=== PATIENT | female | born 1955 | race Hispanic/Latino ===

== ENCOUNTER 2017-03-19 06:26 | Inpatient (IN) | payer SELFPAY ==
[2017-03-19 06:46] VITALS: BMI 39.9
[2017-03-19] MEDS ORDERED: Amiodarone 150mg/3 ml vial ONE (06:55)
[2017-03-19] MEDS ORDERED: Benzoin Compound Tincture (60 ml) ONE ×2 (06:59→07:29)
[2017-03-19 07:00] LABS: BASO # 0.1 K/uL (0.0-0.2); BASO % 0.4 % (0.0-2.0); EOS # 0.2 K/uL (0.0-0.7); EOS % 1.4 % (0.0-4.0); LYMPH # 4.4 K/uL (1.0-4.3); LYMPH % 27.5 % (20.0-40.0); MEAN CELL VOLUME 94.7 fL (81.0-99.0); MEAN CORPUSCULAR HEMOGLOBIN 30.5 pg (27.0-31.0); MEAN CORPUSCULAR HGB CONC 32.2 g/dL (33.0-37.0); MEAN PLATELET VOLUME 9.8 fL (7.2-11.7); MONO # 0.8 K/uL (0.0-0.8); MONO % 4.8 % (0.0-10.0); NRBC % 0.1 % (0.0-2.0); RED CELL DISTRIBUTION WIDTH 13.9 % (11.5-14.5); WHITE BLOOD COUNT 16.1 K/uL (4.8-10.8)
[2017-03-19] MEDS ORDERED: Albuterol-Ipratrop 3 mg / 0.5 (3 ml) UD IH SCH (07:00)
[2017-03-19] MEDS ORDERED: Etomidate 20 mg/10ml Inj IV ONE (07:05)
[2017-03-19] MEDS ORDERED: Succinylcholine Chloride 20 mg/ml Syr (5 ml) IV STA (07:05)
[2017-03-19 07:08] LABS: INR 1.1
[2017-03-19 07:15] LABS: CHLORIDE 105 mmol/L (98-107)
[2017-03-19 07:16] LABS: POTASSIUM 4.3 mmol/L (3.6-5.2); SODIUM 138 mmol/L (132-148)
[2017-03-19 07:18] LABS: ALB/GLOB RATIO 1.1 (1.0-2.1); AST/SGOT 49 U/L (14-36); BILIRUBIN,TOTAL 1.1 mg/dL (0.2-1.3); CARBON DIOXIDE 19 mmol/L (22-30); GFR AFRICAN-AMERICAN > 60; TOTAL PROTEIN 7.3 g/dL (6.3-8.3)
[2017-03-19 07:19] LABS: ALKALINE PHOSPHATASE 71 U/L (38-126); ALT/SGPT 58 U/L (9-52); BLOOD UREA NITROGEN 19 mg/dL (7-17); CALCIUM 9.2 mg/dl (8.6-10.4); GLUCOSE,RANDOM 167 mg/dL (65-105)
[2017-03-19] MEDS ORDERED: Propofol 10 mg/ml 1,000 MG/100 ML VIAL ONE (07:22)
[2017-03-19] MEDS ORDERED: Cefepime IV 1 gm in Dextrose 1 GM/50 ML BAG IVPB STA (07:32)
[2017-03-19 07:55] LABS: THYROID STIMULATING HORMONE 2.68 mIU/L (0.46-4.68)
--- NOTE | 2017-03-19 08:15 | C.PDOC ---
History Of Present Illness 61 y/o F c PMHx HTN BIBEMS in acute respiratory distress. Daughter states patient was well when daughter left for work this morning. States patient does not have PMD at this time. Patient noted that she has not been taking her HTN medication. Full history and ROS unobtainable due to acuity of condition. Patient noted to be hypertensive, tachypneic on arrival. Time Seen by Provider: 03/19/17 06:45 Chief Complaint (Nursing): Shortness Of Breath Past Medical History Vital Signs: Last Vital Signs Temp 99.1 F 03/19/17 08:28 Pulse 114 H 03/19/17 08:59 Resp 22 03/19/17 08:59 BP 99/70 L 03/19/17 08:59 Pulse Ox 99 03/19/17 08:59 - Medical History PMH: HTN Family History: States: No Known Family Hx - Social History Hx Tobacco Use: No Hx Alcohol Use: No Hx Substance Use: No Review Of Systems Review Of Systems: ROS cannot be obtained secondary to pt's inabilty to answer questions. Physical Exam - Physical Exam Additional Physical Exam Comments: Constitutional: Acute respiratory distress. Head: Normocephalic. Atraumatic. Eyes: PERRL. ENT: Moist mucous membranes. Neck: Supple. Cardiovascular: Tachycardic. Radial pulses 2+ bilaterally. Chest: No tenderness. Respiratory: Diffuse rhonchi. Tachypneic. Speaking in 2 word sentences. GI: Soft. Nontender. Nondistended. Back: No CVA tenderness. Musculoskeletal: No tenderness of extremities. Skin: No rash. Neurologic: Awake and alert. ED Course And Treatment - Laboratory Results Result Diagrams: 03/19/17 06:57 03/19/17 06:57 O2 Sat by Pulse Oximetry: 80 Critical Care Time - Critical Care Note Total Time (in mins): 60 Comments: Patient required my immediate attention upon arrival due to life threatening condition, requiring life saving procedures, constant re-evaluation, and discussion with multiple physicians. Documented critical care: time excludes all time spent performing seperately billable procedures. Medical Decision Making Medical Decision Making: Patient was on BiPap on my arrival to ER (7am shift start) and was in acute respiratory distress with HR 150s+, tachypneic, significant secretions, requiring intubation for impending respiratory failure. She was sedated with Propofol afterwards and central line placed, antibiotics initiated. CXR shows pulmonary edema and R sided opacificiation, can not exclude underlying pneumonia. Accepted by Dr. Chase to ICU. Dr. Osuna accepts to hospitalist service. PROCEDURE: CENTRAL LINE PLACEMENT Performed by the emergency provider, Time: 730am Consent: Was precluded by the urgency of the procedure and the patient condition. Timeout: A timeout to verify the correct patient, procedure, and site was performed. Indication: Access, critical condition, possible requirement of pressors, hemodynamic monitoring. Anesthesia: Local anesthesia: 1% lidocaine. Skin Preparation: Hand hygiene performed prior to central venous catheter insertion. Sterile field, sterile drape, sterile technique, and cap and gown were used. The area was cleansed with 2% Chlorhexidine. Patient position: Supine Location: R femoral Ultrasound guidance: YES Technique: The landmarks for the line placement were identified. The vessel was cannulated and a non-tunneled 7.0 Fr triple lumen was placed using the Seldinger technique. Successful placement: YES. Line sutured with silk and appropriate dressing applied. Assessment: Good patency and blood return through all three lumens. The ports were appropriately flushed. Post-procedure: Patient tolerated the procedure well with no immediate complications. PROCEDURE: INTUBATION Performed by the emergency provider Time: 710am Consent: Was precluded by the urgency of the procedure and the patient condition. Timeout: A timeout to verify the correct patient, procedure, and site was performed. Indication: Hypoxic respiratory failure Pre-oxygenation: [id number] Medications: Etomidate, succ ETT Size: 7.5 Confirmation: Cords directly visualized as tube passed, good bilateral breath sounds, positive CO2 detector color change, tube fogging, adequate chest rise, improving pulse oximetry reading, improved skin color, and absence of gastric sounds,. ETT Secured: The cuff was inflated and the tube was secured appropriately at a distance of 22cm at the lip. Post-Procedure: There were no immediate complications. CXR Confirmation: YES EKG shows multiple PVCs, tachycardic at 165 bpm with no obvious ST elevations. Previous EKG 2 years ago shows multiple PVCs as well. Disposition Discussed With : Scotty Chase Doctor Will See Patient In The: ED - Disposition Disposition: HOSPITALIZED Disposition Time: 08:40 Condition: CRITICAL - POA Core Measure Indicators: Pneumonia - Clinical Impression Clinical Impression: Acute respiratory failure with hypoxia, Pulmonary edema, Pneumonia - Scribe Statement The provider has reviewed the documentation as recorded by the Scribe Jonathan Baez All medical record entries made by the Yumikoibe were at my direction and personally dictated by me. I have reviewed the chart and agree that the record accurately reflects my personal performance of the history, physical exam, medical decision making, and the department course for this patient. I have also personally directed, reviewed, and agree with the discharge instructions and disposition.
[2017-03-19 08:30] LABS: RBC URINE < 1 /hpf (0-3); URINE BACTERIA RARE (<OCC); URINE BILIRUBIN NEGATIVE (NEGATIVE); URINE BLOOD NEGATIVE (NEGATIVE); URINE COLOR Yellow (YELLOW); URINE GLUCOSE (UA) NORMAL (Normal); URINE HYALINE CAST 0-2 /lpf (0-2); URINE KETONE NEGATIVE (NEGATIVE); URINE LEUKOCYTE ESTERASE NEG Leu/uL (Negative); URINE PROTEIN 2+ mg/dL (NEGATIVE); URINE UROBILINOGEN NORMAL mg/dL (0.2-1.0); WBC URINE < 1 /hpf (0-5)
[2017-03-19 08:43] LABS: ABG MECHANICAL RATE 12; ATERIAL BLOOD GAS PEEP 5; DRAW SITE LF
[2017-03-19] MEDS: Propofol 10 mg/ml 1,000 MG/100 ML VIAL IV PRN ×4 (08:52→22:40)
--- NOTE | 2017-03-19 08:57 | RAD ---
PROCEDURE: CHEST RADIOGRAPH, 1 VIEW HISTORY: Shortness of breath COMPARISON: None available. FINDINGS: The endotracheal tube terminates 3 cm proximal to the [place]ore[place]. The nasogastric tube terminates in the stomach. LUNGS: There is diffuse opacification of the right hemithorax. There is severe pulmonary venous congestion. There is also interstitial pulmonary edema. PLEURA: Suspect small right pleural effusion. No large left pleural effusion. No pneumothorax. CARDIOVASCULAR: Normal. OSSEOUS STRUCTURES: No significant abnormalities. VISUALIZED UPPER ABDOMEN: Normal. OTHER FINDINGS: None. IMPRESSION: 1. Diffuse opacification of the right hemithorax could represent pulmonary edema, consolidation from noninfectious etiology or pneumonia. Follow-up is advised. 2. Severe pulmonary venous congestion and interstitial pulmonary edema. 3. Endotracheal tube terminates 3 cm proximal to the korey.
[2017-03-19 09:02] LABS: ABG ALLEN TEST POS; ABG MECHANICAL RATE 12; ATERIAL BLOOD GAS PEEP 5; DRAW SITE R RAD
[2017-03-19] MEDS ORDERED: Vancomycin 1 GM 1 GM/250 ML BAG IVPB ONE (09:26)
--- NOTE | 2017-03-19 11:23 | RAD ---
PROCEDURE: CHEST RADIOGRAPH, 1 VIEW HISTORY: ET tube COMPARISON: 03/19/2017 at 7:21 a.m. FINDINGS: LUNGS: Extensive right-sided diffuse pulmonary opacity, increasing compared to prior. This may be due in part to the pleural effusion not seen earlier. No left-sided consolidation. PLEURA: Small to moderate right pleural effusion. No left pleural effusion. No pneumothorax. CARDIOVASCULAR: ET tube positioned 4.1 cm above tracheal korey. Normal heart size. OSSEOUS STRUCTURES: No significant abnormalities. VISUALIZED UPPER ABDOMEN: Normal. OTHER FINDINGS: None. IMPRESSION: Increasing right-sided diffuse opacity. Small to moderate right pleural effusion. ET tube appropriately positioned.
--- NOTE | 2017-03-19 11:50 | CP.PCM.CON ---
<Jailene Mcknight - Last Filed: 03/19/17 13:28> History of Present Illness - History of Present Illness History of Present Illness: CC: hypotensive, weakness, sob 61 year old female patient with medical history of hypertension, presents to the ED via EMS for hypotension and weakness. Patient's history is obtained by daughter, Aliza. The patient called daughter, who works at [employer], around 5:30am and reported feeling like her blood pressure was low and she couldn't get out of bed. EMS took patient to the ED, where she became short of breath. Patient told EMS that she has not been taking her blood pressure medication for months, but as per her (Michael), patient takes her medication everyday. In the ED, patient's O2 saturation was low (79-90s) and patient was intubated. Patient was admitted to the ICU for respiratory distress and hypoxia. Review of systems not obtained due to sedation and intubation. PMD: denies PMHx: HTN SurgHx: daughter denies FamHx: HTN, DM, mother- cancer (unknown type) SocHx: denies tobacco, alcohol, and drug use; lives with family in house Allergies: NKDA Medications: as per daughter, only takes medication for HTN (unsure of name) Past Patient History - Past Social History Smoking Status: Never Smoked - CARDIAC Hx Hypertension: Yes - PSYCHIATRIC Hx Substance Use: No Meds Allergies/Adverse Reactions: Allergies Allergy/AdvReac Type Severity Reaction Status Date / Time No Known Allergies Allergy Unverified 08/30/14 19:13 - Medications Medications: Current Medications Propofol (Diprivan) 1,000 mg in 100 mls @ 3.266 mls/hr IV .Q24H PRN; Protocol; 5 MCG/KG/MIN PRN Reason: TITRATE PER MD ORDER Last Admin: 03/19/17 10:18 Dose: 12 mcg/kg/min, 7.838 mls/hr Norepinephrine Bitartrate 8 mg (/ Dextrose) 258 mls @ 7.74 mls/hr IV .Q24H PRN ; Protocol; 4 MCG/MIN PRN Reason: TITRATE PER MD ORDER Results - Vital Signs Recent Vital Signs: Last Vital Signs Temp 98 F 03/19/17 10:30 Pulse 101 H 03/19/17 11:00 Resp 17 03/19/17 11:00 BP 98/48 L 03/19/17 11:00 Pulse Ox 97 03/19/17 11:00 - Labs Result Diagrams: 03/19/17 06:57 03/19/17 06:57 Labs: Laboratory Results - last 24 hr 03/19/17 08:50 Puncture Site R rad pCO2 34 L pO2 52 L HCO3 20.4 L ABG pH 7.36 ABG Total CO2 20.2 L ABG O2 Saturation 88.5 L ABG Base Excess -5.4 L Santiago Test Pos ABG Potassium 2.9 L A-a O2 Difference 619.0 Respiratory Index 11.9 Sodium 141.0 Chloride 106.0 Glucose 240 H Lactate 1.5 Mechanical Rate 12 FiO2 100.0 Tidal Volume 500 PEEP 5 Arterial Blood Potassium 2.9 L Assessment & Plan - Assessment and Plan (Free Text) Assessment: 61 year old female patient with medical history of hypertension, presents to the ED via EMS for hypotension and weakness. Patient's history is obtained by daughter, Aliza. The patient called daughter, who works at [employer], around 5:30am and reported feeling like her blood pressure was low and she couldn't get out of bed. EMS took patient to the ED, where she became short of breath. Patient told EMS that she has not been taking her blood pressure medication for months, but as per her (Michael), patient takes her medication everyday. In the ED, patient's O2 saturation was low (79-90s) and patient was intubated. Patient was admitted to the ICU for respiratory distress and hypoxia. Review of systems not obtained due to sedation and intubation. Neuro: sedated Pulm: Respiratory distress, hypoxia - Intubated - Likely secondary to pleural effusions and pneumonia - CXR: increasing right sided diffuse opacity; small to moderate right pleural effusion; - ABG: f/u CV: hypotensive - Hx of HTN- hold antihypertensives - On Pressors - EKG: PVCs, tachycardic, 165bpm Endo: no acute issues GI: no acute issues : no acute issues Heme: no acute issues - Monitor H/H Renal: no acute issues ID: leukocytosis, likely secondary to pneumonia - Continue Vancoymcin and Cefepime - Blood cx: f/u - Urine cx: f/u - Sputum/trach cx: f/u Prophylaxis: - DVT: Heparin SC, SCDs - GI: Pepcid <Scotty Chase M - Last Filed: 03/20/17 23:58> Meds - Medications Medications: Current Medications Famotidine (Pepcid) 20 mg IVP DAILY [facility] Last Admin: 03/20/17 10:15 Dose: 20 mg Heparin Sodium (Porcine) (Heparin) 5,000 units SC Q8 [facility] Last Admin: 03/20/17 21:07 Dose: 5,000 units Propofol (Diprivan) 1,000 mg in 100 mls @ 3.266 mls/hr IV .Q24H PRN; Protocol; 5 MCG/KG/MIN PRN Reason: TITRATE PER MD ORDER Last Titration: 03/20/17 23:01 Dose: 25.72 mcg/kg/min, 16.8 mls/hr Norepinephrine Bitartrate 8 mg (/ Dextrose) 258 mls @ 7.74 mls/hr IV .Q24H PRN ; Protocol; 4 MCG/MIN PRN Reason: TITRATE PER MD ORDER Cefepime HCl 1 gm/ Dextrose 50 mls @ 100 mls/hr IVPB Q12H [facility] Last Admin: 03/20/17 14:19 Dose: 100 mls/hr Vancomycin HCl 1 gm/ Sodium (Chloride) 250 mls @ 166.7 mls/hr IVPB Q24H [facility] Last Admin: 03/20/17 14:21 Dose: 166.7 mls/hr Results - Vital Signs Recent Vital Signs: Last Vital Signs Temp 99.5 F 03/20/17 20:00 Pulse 121 H 03/20/17 21:00 Resp 14 03/20/17 21:00 BP 101/56 L 03/20/17 21:00 Pulse Ox 97 03/20/17 21:00 - Labs Result Diagrams: 03/20/17 07:26 03/20/17 06:47 Labs: Laboratory Results - last 24 hr 03/20/17 03/20/17 03/20/17 04:40 06:47 07:26 WBC 10.5 RBC 3.91 Hgb 11.8 D Hct 36.6 MCV 93.6 MCH 30.3 MCHC 32.4 L RDW 13.6 Plt Count 180 MPV 9.7 Neut % (Auto) 79.4 H Lymph % (Auto) 14.3 L [place] % (Auto) 5.7 Eos % (Auto) 0.3 Baso % (Auto) 0.3 Neut # 8.4 H Lymph # 1.5 [place] # 0.6 Eos # 0.0 Baso # 0.0 Puncture Site Rr pCO2 35 pO2 88 HCO3 27.0 ABG pH 7.48 H ABG Total CO2 27.2 ABG O2 Saturation 97.4 ABG Base Excess 2.7 ABG Hemoglobin 11.6 L ABG Carboxyhemoglobin 0.7 POC ABG HHb (Measured) 2.6 ABG Methemoglobin 0.6 Santiago Test Pos A-a O2 Difference 439.0 Respiratory Index 5.0 Hgb O2 Saturation 96.1 Vent Mode Prvc Mechanical Rate 12 FiO2 80.0 Tidal Volume 500 PEEP 5 Sodium 139 Potassium 3.2 L Chloride 106 Carbon Dioxide 24 Anion Gap 12 BUN 14 Creatinine 0.7 Est GFR ( Amer) > 60 Est GFR (Non-Af Amer) > 60 Random Glucose 100 Calcium 8.5 L Phosphorus 3.1 Magnesium 2.0 Total Bilirubin 0.8 AST 39 H D ALT 54 H Alkaline Phosphatase 50 Total Protein 5.9 L Albumin 3.1 L D Globulin 2.7 Albumin/Globulin Ratio 1.1 Procalcitonin 03/20/17 12:45 WBC RBC Hgb Hct MCV MCH MCHC RDW Plt Count MPV Neut % (Auto) Lymph % (Auto) [place] % (Auto) Eos % (Auto) Baso % (Auto) Neut # Lymph # [place] # Eos # Baso # Puncture Site pCO2 pO2 HCO3 ABG pH ABG Total CO2 ABG O2 Saturation ABG Base Excess ABG Hemoglobin ABG Carboxyhemoglobin POC ABG HHb (Measured) ABG Methemoglobin [place] Test A-a O2 Difference Respiratory Index Hgb O2 Saturation Vent Mode Mechanical Rate FiO2 Tidal Volume PEEP Sodium Potassium Chloride Carbon Dioxide Anion Gap BUN Creatinine Est GFR ( Amer) Est GFR (Non-Af Amer) Random Glucose Calcium Phosphorus Magnesium Total Bilirubin AST ALT Alkaline Phosphatase Total Protein Albumin Globulin Albumin/Globulin Ratio Procalcitonin 0.24 Attending/Attestation - Attestation I have personally seen and examined this patient.: Yes I have fully participated in the care of the patient.: Yes I have reviewed all pertinent clinical information: Yes Notes (Text): Today: Sunday, March 19, 2017 The Patient was seen and examined at the bedside, Medical records reviewed, and management issues were discussed and formulated. All clinical/lab/hemodynamic/radiographic data were reviewed Events reviewed Pain issues, skin care, head of the bed elevation, glycemic control were addressed. Agree with above treatment plans as transcribed in Dr. Mcknight note
--- NOTE | 2017-03-19 12:01 | CP.PCM.HP ---
<Jailene Mcknight - Last Filed: 03/19/17 14:08> History of Present Illness - History of Present Illness History of Present Illness: CC: Hypotension, Respiratory Distress, Hypoxia HPI: 61 year old female patient with medical history of hypertension, presents to the ED via EMS for hypotension and weakness. Patient's history is obtained by daughter, Aliza. The patient called daughter, who works at [employer], around 5:30am and reported feeling like her blood pressure was low and she couldn't get out of bed. EMS took patient to the ED, where she became short of breath. Patient told EMS that she has not been taking her blood pressure medication for months, but as per her (Michael), patient takes her medication everyday. In the ED, patient's O2 saturation was low (79-90s) and patient was intubated. Patient was admitted to the ICU for respiratory distress and hypoxia. Review of systems not obtained due to sedation and intubation. PMD: denies PMHx: HTN SurgHx: daughter denies FamHx: HTN, DM, mother- cancer (unknown type) SocHx: denies tobacco, alcohol, and drug use; lives with family in house Allergies: NKDA Medications: as per daughter, only takes medication for HTN (unsure of name) Present on Admission - Present on Admission Any Indicators Present on Admission: No Review of Systems - Review of Systems Systems not reviewed;Unavailable: Intubated Past Patient History - Past Social History Smoking Status: Never Smoked - CARDIAC Hx Hypertension: Yes - PSYCHIATRIC Hx Substance Use: No Meds Allergies/Adverse Reactions: Allergies Allergy/AdvReac Type Severity Reaction Status Date / Time No Known Allergies Allergy Unverified 08/30/14 19:13 Physical Exam - Constitutional Additional comments: Sedated - Head Exam Head Exam: ATRAUMATIC, NORMAL INSPECTION - Eye Exam Eye Exam: absent: EOMI (sedated) - ENT Exam ENT Exam: Mucous Membranes Moist - Respiratory Exam Respiratory Exam: Clear to Auscultation Bilateral. absent: Rales, Rhonchi, Wheezes, NORMAL BREATHING PATTERN (Intubated) - Cardiovascular Exam Cardiovascular Exam: Irregular Rhythm (PVCs), +S1, +S2 - GI/Abdominal Exam GI & Abdominal Exam: Normal Bowel Sounds, Soft. absent: Distended, Firm, Guarding - Extremities Exam Extremities exam: Positive for: pedal edema, pedal pulses present. Negative for : normal inspection - Neurological Exam Additional comments: Sedated - Skin Skin Exam: Dry, Intact, Normal Color, Warm Results - Vital Signs Recent Vital Signs: Last Vital Signs Temp 98 F 03/19/17 10:30 Pulse 101 H 03/19/17 11:00 Resp 17 03/19/17 11:00 BP 98/48 L 03/19/17 11:00 Pulse Ox 97 03/19/17 11:00 - Labs Result Diagrams: 03/19/17 06:57 03/19/17 06:57 Labs: Laboratory Results - last 24 hr 03/19/17 08:50 Puncture Site R rad pCO2 34 L pO2 52 L HCO3 20.4 L ABG pH 7.36 ABG Total CO2 20.2 L ABG O2 Saturation 88.5 L ABG Base Excess -5.4 L [place] Test Pos ABG Potassium 2.9 L A-a O2 Difference 619.0 Respiratory Index 11.9 Sodium 141.0 Chloride 106.0 Glucose 240 H Lactate 1.5 Mechanical Rate 12 FiO2 100.0 Tidal Volume 500 PEEP 5 Arterial Blood Potassium 2.9 L Assessment & Plan (1) Acute respiratory failure with hypoxia Assessment and Plan: Respiratory distress, hypoxia--> Intubated - Likely secondary to pleural effusions and pneumonia - CXR: increasing right sided diffuse opacity; small to moderate right pleural effusion; - Leukocytosis, likely secondary to pneumonia - Continue Vancoymcin and Cefepime - UA: 2+ protein, rare sediment - Blood cx: f/u - Urine cx: f/u - Sputum/trach cx: f/u - ABG: f/u Status: Acute (2) Hypotension Assessment and Plan: - Hx of HTN- hold antihypertensives - Patient is currently on pressors - EKG: PVCs, tachycardic, 165bpm - TSH 2.68 - Troponin: negative; BNP 2450 - Monitor vitals Status: Acute (3) Prophylactic measure Assessment and Plan: Heparin 5,000 units SC Q8h SCDs Pepcid 20mg IV daily Status: Acute <Ace Osuna - Last Filed: 03/20/17 09:40> Results - Vital Signs Recent Vital Signs: Last Vital Signs Temp 99 F 03/20/17 04:00 Pulse 84 03/20/17 04:00 Resp 16 03/20/17 07:00 BP 123/67 03/20/17 07:00 Pulse Ox 97 03/20/17 07:00 - Labs Result Diagrams: 03/20/17 07:26 03/20/17 06:47 Labs: Laboratory Results - last 24 hr 03/19/17 03/20/17 03/20/17 13:20 04:40 06:47 WBC RBC Hgb Hct MCV MCH MCHC RDW Plt Count MPV Neut % (Auto) Lymph % (Auto) [place] % (Auto) Eos % (Auto) Baso % (Auto) Neut # Lymph # [place] # Eos # Baso # Puncture Site Rr Rr pCO2 36 35 pO2 162 H 88 HCO3 24.8 27.0 ABG pH 7.43 7.48 H ABG Total CO2 25.0 27.2 ABG O2 Saturation 98.6 H 97.4 ABG Base Excess -0.1 2.7 ABG Hemoglobin 12.5 11.6 L ABG Carboxyhemoglobin 0.8 0.7 POC ABG HHb (Measured) 1.4 2.6 ABG Methemoglobin 0.8 0.6 [place] Test Pos Pos A-a O2 Difference 506.0 439.0 Respiratory Index 3.1 5.0 Hgb O2 Saturation 97.0 96.1 Vent Mode Prvc Prvc Mechanical Rate 12 12 FiO2 100.0 80.0 Tidal Volume 500 500 PEEP 5 5 Sodium 139 Potassium 3.2 L Chloride 106 Carbon Dioxide 24 Anion Gap 12 BUN 14 Creatinine 0.7 Est GFR ( Amer) > 60 Est GFR (Non-Af Amer) > 60 Random Glucose 100 Calcium 8.5 L Phosphorus 3.1 Magnesium 2.0 Total Bilirubin 0.8 AST 39 H D ALT 54 H Alkaline Phosphatase 50 Total Protein 5.9 L Albumin 3.1 L D Globulin 2.7 Albumin/Globulin Ratio 1.1 03/20/17 07:26 WBC 10.5 RBC 3.91 Hgb 11.8 D Hct 36.6 MCV 93.6 MCH 30.3 MCHC 32.4 L RDW 13.6 Plt Count 180 MPV 9.7 Neut % (Auto) 79.4 H Lymph % (Auto) 14.3 L [place] % (Auto) 5.7 Eos % (Auto) 0.3 Baso % (Auto) 0.3 Neut # 8.4 H Lymph # 1.5 [place] # 0.6 Eos # 0.0 Baso # 0.0 Puncture Site pCO2 pO2 HCO3 ABG pH ABG Total CO2 ABG O2 Saturation ABG Base Excess ABG Hemoglobin ABG Carboxyhemoglobin POC ABG HHb (Measured) ABG Methemoglobin [place] Test A-a O2 Difference Respiratory Index Hgb O2 Saturation Vent Mode Mechanical Rate FiO2 Tidal Volume PEEP Sodium Potassium Chloride Carbon Dioxide Anion Gap BUN Creatinine Est GFR ( Amer) Est GFR (Non-Af Amer) Random Glucose Calcium Phosphorus Magnesium Total Bilirubin AST ALT Alkaline Phosphatase Total Protein Albumin Globulin Albumin/Globulin Ratio Attending/Attestation - Attestation I have personally seen and examined this patient.: Yes I have fully participated in the care of the patient.: Yes I have reviewed all pertinent clinical information: Yes Notes (Text): 03/20/17 09:40 Patient was seen and examined at bedside in ICU. I discussed the plan of care with the admitting resident and I agree with the assessment/plan documented.
[2017-03-19 13:23] LABS: ABG ALLEN TEST POS; ABG MECHANICAL RATE 12; ARTERIAL BLOOD GAS MODE PRVC; ATERIAL BLOOD GAS PEEP 5; CARBOXYHEMOGLOBIN 0.8 % (0.5-1.5); DRAW SITE RR; HHB 1.4 % (0.0-5.0); METHEMOGLOBIN 0.8 % (0.0-3.0)
[2017-03-19] MEDS ORDERED: DiphenhydrAMINE 50 mg/ml Inj IVP ONE (16:32)
[2017-03-19] MEDS ORDERED: MethylPREDNISolone 40 mg Vial IVP ONE (16:35)
--- NOTE | 2017-03-19 19:52 | CARD ---
APPROVED REPORT EKG Measurement Heart [id number] <Conclusion> Rapid atrial fibrillation Left axis deviation Anteroseptal infarct, age undetermined Technically poor Abnormal ECG
[2017-03-20] MEDS: Propofol 10 mg/ml 1,000 MG/100 ML VIAL IV PRN ×4 (04:30→21:06)
[2017-03-20 04:54] LABS: ABG ALLEN TEST POS; ABG MECHANICAL RATE 12; ARTERIAL BLOOD GAS MODE PRVC; ARTERIAL BLOOD HGB O2 SAT 96.1 % (95.0-98.0); ATERIAL BLOOD GAS PEEP 5; CARBOXYHEMOGLOBIN 0.7 % (0.5-1.5); DRAW SITE RR; HHB 2.6 % (0.0-5.0); METHEMOGLOBIN 0.6 % (0.0-3.0)
[2017-03-20 07:13] LABS: ALB/GLOB RATIO 1.1 (1.0-2.1); ALKALINE PHOSPHATASE 50 U/L (38-126); ALT/SGPT 54 U/L (9-52); AST/SGOT 39 U/L (14-36); BILIRUBIN,TOTAL 0.8 mg/dL (0.2-1.3); BLOOD UREA NITROGEN 14 mg/dL (7-17); CALCIUM 8.5 mg/dl (8.6-10.4); CARBON DIOXIDE 24 mmol/L (22-30); CHLORIDE 106 mmol/L (98-107); GFR AFRICAN-AMERICAN > 60; GLUCOSE,RANDOM 100 mg/dL (65-105); PHOSPHOROUS 3.1 mg/dL (2.5-4.5); POTASSIUM 3.2 mmol/L (3.6-5.2); SODIUM 139 mmol/L (132-148); TOTAL PROTEIN 5.9 g/dL (6.3-8.3)
[2017-03-20 07:30] LABS: BASO % 0.3 % (0.0-2.0); EOS % 0.3 % (0.0-4.0); HEMATOCRIT 36.6 % (34.0-47.0); LYMPH # 1.5 K/uL (1.0-4.3); LYMPH % 14.3 % (20.0-40.0); MEAN CELL VOLUME 93.6 fL (81.0-99.0); MEAN CORPUSCULAR HEMOGLOBIN 30.3 pg (27.0-31.0); MEAN CORPUSCULAR HGB CONC 32.4 g/dL (33.0-37.0); MEAN PLATELET VOLUME 9.7 fL (7.2-11.7); MONO # 0.6 K/uL (0.0-0.8); MONO % 5.7 % (0.0-10.0); RED CELL DISTRIBUTION WIDTH 13.6 % (11.5-14.5); WHITE BLOOD COUNT 10.5 K/uL (4.8-10.8)
[2017-03-20] MEDS ORDERED: Potassium Chloride 20 mEq/15 ml LIQ UD PO ONE (09:45)
--- NOTE | 2017-03-20 10:05 | RAD ---
HISTORY: intubated COMPARISON: Chest x-ray performed 03/19/17 TECHNIQUE: Chest, one view. FINDINGS: Distal tip of the endotracheal tube terminates approximately 3.4 cm above the level of the [place]. LUNGS: Extensive diffuse right-sided pulmonary opacity persists. Left central venous congestion. Small right pleural effusion. Silhouetting of the left hemidiaphragm may reflect atelectasis/ infiltrate and or small effusion. No definite pneumothorax. CARDIOVASCULAR: Cardiomegaly. OSSEOUS STRUCTURES: Degenerative changes. VISUALIZED UPPER ABDOMEN: Unremarkable. OTHER FINDINGS: None. IMPRESSION: Distal tip of the endotracheal tube terminates approximately 3.4 cm above the level of the [place]. Extensive diffuse right-sided pulmonary opacity persists. Left central venous congestion. Small right pleural effusion. Silhouetting of the left hemidiaphragm may reflect atelectasis/ infiltrate and or small effusion.
--- NOTE | 2017-03-20 11:39 | CP.CCUPN ---
CCU Subjective - Physician Review Events Since Last Encounter (Free Text): 03/20/17 11:36 Patient seen and examined in the intensive care unit. Case discussed with all staff in the morning rounds. Remains intubated on ventilatory support requiring high FiO2 Remains sedated Worsening chest x-ray noted Afebrile CCU Objective - Vital Signs / Intake & Output Vital Signs (Last 4 hours): Vital Signs Temp Pulse Resp BP Pulse Ox 03/20/17 09:00 109 H 15 107/57 L 95 03/20/17 08:00 98.1 F 111 H 16 119/64 95 Intake and Output (Last 8hrs): Intake & Output 03/19/17 03/20/17 03/20/17 22:59 06:59 14:59 Intake Total 284 264 158 Output Total 575 840 185 Balance -291 -576 -27 Intake: IV 100 100 100 Intake, IV Amount 184 164 58 Right Proximal Port 184 164 58 Femoral Output: Urine 575 840 185 Urethral (Leon) 575 840 185 - Physical Exam Head: Positive for: Atraumatic, Normocephalic Pupils: Positive for: PERRL Conjunctiva: Positive for: Normal Mouth: Positive for: Moist Mucous Membranes Neck: Positive for: Trachea Midline Respiratory/Chest: Positive for: Decreased Breath Sounds Cardiovascular: Positive for: Regular Rate and Rhythm Abdomen: Positive for: Normal Bowel Sounds Upper Extremity: Positive for: Normal Inspection Lower Extremity: Positive for: Normal Inspection - Medications Active Medications: Active Medications Generic Name Dose Route Start Last Admin Trade Name Freq PRN Reason Stop Dose Admin Famotidine 20 mg 03/20/17 10:00 03/20/17 10:15 Pepcid IVP 20 mg DAILY ZUNILDA Administration Heparin Sodium (Porcine) 5,000 units 03/19/17 14:00 03/20/17 06:43 Heparin SC 5,000 units Q8 ZUNILDA Administration Propofol 1,000 mg in 100 mls @ 3.266 mls/hr 03/19/17 07:31 03/20/17 09:38 Diprivan IV 30.61 mcg/kg/min .Q24H PRN 19.994 mls/hr TITRATE PER MD ORDER Administration Protocol 5 MCG/KG/MIN Norepinephrine Bitartrate 8 mg 258 mls @ 7.74 mls/hr 03/19/17 09:18 / Dextrose IV .Q24H PRN TITRATE PER MD ORDER Protocol 4 MCG/MIN Cefepime HCl 1 gm/ Dextrose 50 mls @ 100 mls/hr 03/19/17 13:00 03/20/17 01:00 IVPB 100 mls/hr Q12H ZUNILDA Administration Vancomycin HCl 1 gm/ Sodium 250 mls @ 166.7 mls/hr 03/19/17 14:00 03/19/17 13 :51 Chloride IVPB Not Given Q24H ZUNILDA - Patient Studies Lab Studies: Lab Studies 03/20/17 03/20/17 03/20/17 Range/Units 07:26 06:47 04:40 WBC 10.5 (4.8-10.8) K/uL RBC 3.91 (3.80-5.20) Mil/uL Hgb 11.8 D (11.0-16.0) g/dL Hct 36.6 (34.0-47.0) % MCV 93.6 (81.0-99.0) fL MCH 30.3 (27.0-31.0) pg MCHC 32.4 L (33.0-37.0) g/dL RDW 13.6 (11.5-14.5) % Plt Count 180 (130-400) K/uL MPV 9.7 (7.2-11.7) fL Neut % (Auto) 79.4 H (50.0-75.0) % Lymph % (Auto) 14.3 L (20.0-40.0) % [place] % (Auto) 5.7 (0.0-10.0) % Eos % (Auto) 0.3 (0.0-4.0) % Baso % (Auto) 0.3 (0.0-2.0) % Neut # 8.4 H (1.8-7.0) K/uL Lymph # 1.5 (1.0-4.3) K/uL [place] # 0.6 (0.0-0.8) K/uL Eos # 0.0 (0.0-0.7) K/uL Baso # 0.0 (0.0-0.2) K/uL Puncture Site Rr pCO2 35 (35-45) mm/Hg pO2 88 (80-100) mm/Hg HCO3 27.0 (21-28) mmol/L ABG pH 7.48 H (7.35-7.45) ABG Total CO2 27.2 (22-28) mmol/L ABG O2 Saturation 97.4 (95-98) % ABG Base Excess 2.7 (-2.0-3.0) mmol/L ABG Hemoglobin 11.6 L (11.7-17.4) g/dL ABG Carboxyhemoglobin 0.7 (0.5-1.5) % POC ABG HHb (Measured) 2.6 (0.0-5.0) % ABG Methemoglobin 0.6 (0.0-3.0) % [place] Test Pos A-a O2 Difference 439.0 mm/Hg Respiratory Index 5.0 Hgb O2 Saturation 96.1 (95.0-98.0) % Vent Mode Prvc Mechanical Rate 12 FiO2 80.0 % Tidal Volume 500 PEEP 5 Sodium 139 (132-148) mmol/L Potassium 3.2 L (3.6-5.2) mmol/L Chloride 106 (98-107) mmol/L Carbon Dioxide 24 (22-30) mmol/L Anion Gap 12 (10-20) BUN 14 (7-17) mg/dL Creatinine 0.7 (0.7-1.2) MG/DL Est GFR ( Amer) > 60 Est GFR (Non-Af Amer) > 60 Random Glucose 100 (65-105) mg/dL Calcium 8.5 L (8.6-10.4) mg/dl Phosphorus 3.1 (2.5-4.5) mg/dL Magnesium 2.0 (1.6-2.3) mg/dL Total Bilirubin 0.8 (0.2-1.3) mg/dL AST 39 H D (14-36) U/L ALT 54 H (9-52) U/L Alkaline Phosphatase 50 (38-126) U/L Total Protein 5.9 L (6.3-8.3) g/dL Albumin 3.1 L D (3.5-5.0) g/dL Globulin 2.7 (2.2-3.9) gm/dL Albumin/Globulin Ratio 1.1 (1.0-2.1) // Range/Units 13:20 WBC (4.8-10.8) K/uL RBC (3.80-5.20) Mil/uL Hgb (11.0-16.0) g/dL Hct (34.0-47.0) % MCV (81.0-99.0) fL MCH (27.0-31.0) pg MCHC (33.0-37.0) g/dL RDW (11.5-14.5) % Plt Count (130-400) K/uL MPV (7.2-11.7) fL Neut % (Auto) (50.0-75.0) % Lymph % (Auto) (20.0-40.0) % [place] % (Auto) (0.0-10.0) % Eos % (Auto) (0.0-4.0) % Baso % (Auto) (0.0-2.0) % Neut # (1.8-7.0) K/uL Lymph # (1.0-4.3) K/uL [place] # (0.0-0.8) K/uL Eos # (0.0-0.7) K/uL Baso # (0.0-0.2) K/uL Puncture Site Rr pCO2 36 (35-45) mm/Hg pO2 162 H (80-100) mm/Hg HCO3 24.8 (21-28) mmol/L ABG pH 7.43 (7.35-7.45) ABG Total CO2 25.0 (22-28) mmol/L ABG O2 Saturation 98.6 H (95-98) % ABG Base Excess -0.1 (-2.0-3.0) mmol/L ABG Hemoglobin 12.5 (11.7-17.4) g/dL ABG Carboxyhemoglobin 0.8 (0.5-1.5) % POC ABG HHb (Measured) 1.4 (0.0-5.0) % ABG Methemoglobin 0.8 (0.0-3.0) % Santiago Test Pos A-a O2 Difference 506.0 mm/Hg Respiratory Index 3.1 Hgb O2 Saturation 97.0 (95.0-98.0) % Vent Mode Prvc Mechanical Rate 12 FiO2 100.0 % Tidal Volume 500 PEEP 5 Sodium (132-148) mmol/L Potassium (3.6-5.2) mmol/L Chloride (98-107) mmol/L Carbon Dioxide (22-30) mmol/L Anion Gap (10-20) BUN (7-17) mg/dL Creatinine (0.7-1.2) MG/DL Est GFR ( Amer) Est GFR (Non-Af Amer) Random Glucose (65-105) mg/dL Calcium (8.6-10.4) mg/dl Phosphorus (2.5-4.5) mg/dL Magnesium (1.6-2.3) mg/dL Total Bilirubin (0.2-1.3) mg/dL AST (14-36) U/L ALT (9-52) U/L Alkaline Phosphatase (38-126) U/L Total Protein (6.3-8.3) g/dL Albumin (3.5-5.0) g/dL Globulin (2.2-3.9) gm/dL Albumin/Globulin Ratio (1.0-2.1) Laboratory Results - last 24 hr 03/19/17 03/20/17 03/20/17 13:20 04:40 06:47 WBC RBC Hgb Hct MCV MCH MCHC RDW Plt Count MPV Neut % (Auto) Lymph % (Auto) [place] % (Auto) Eos % (Auto) Baso % (Auto) Neut # Lymph # [place] # Eos # Baso # Puncture Site Rr Rr pCO2 36 35 pO2 162 H 88 HCO3 24.8 27.0 ABG pH 7.43 7.48 H ABG Total CO2 25.0 27.2 ABG O2 Saturation 98.6 H 97.4 ABG Base Excess -0.1 2.7 ABG Hemoglobin 12.5 11.6 L ABG Carboxyhemoglobin 0.8 0.7 POC ABG HHb (Measured) 1.4 2.6 ABG Methemoglobin 0.8 0.6 [place] Test Pos Pos A-a O2 Difference 506.0 439.0 Respiratory Index 3.1 5.0 Hgb O2 Saturation 97.0 96.1 Vent Mode Prvc Prvc Mechanical Rate 12 12 FiO2 100.0 80.0 Tidal Volume 500 500 PEEP 5 5 Sodium 139 Potassium 3.2 L Chloride 106 Carbon Dioxide 24 Anion Gap 12 BUN 14 Creatinine 0.7 Est GFR ( Amer) > 60 Est GFR (Non-Af Amer) > 60 Random Glucose 100 Calcium 8.5 L Phosphorus 3.1 Magnesium 2.0 Total Bilirubin 0.8 AST 39 H D ALT 54 H Alkaline Phosphatase 50 Total Protein 5.9 L Albumin 3.1 L D Globulin 2.7 Albumin/Globulin Ratio 1.1 03/20/17 07:26 WBC 10.5 RBC 3.91 Hgb 11.8 D Hct 36.6 MCV 93.6 MCH 30.3 MCHC 32.4 L RDW 13.6 Plt Count 180 MPV 9.7 Neut % (Auto) 79.4 H Lymph % (Auto) 14.3 L [place] % (Auto) 5.7 Eos % (Auto) 0.3 Baso % (Auto) 0.3 Neut # 8.4 H Lymph # 1.5 [place] # 0.6 Eos # 0.0 Baso # 0.0 Puncture Site pCO2 pO2 HCO3 ABG pH ABG Total CO2 ABG O2 Saturation ABG Base Excess ABG Hemoglobin ABG Carboxyhemoglobin POC ABG HHb (Measured) ABG Methemoglobin [place] Test A-a O2 Difference Respiratory Index Hgb O2 Saturation Vent Mode Mechanical Rate FiO2 Tidal Volume PEEP Sodium Potassium Chloride Carbon Dioxide Anion Gap BUN Creatinine Est GFR ( Amer) Est GFR (Non-Af Amer) Random Glucose Calcium Phosphorus Magnesium Total Bilirubin AST ALT Alkaline Phosphatase Total Protein Albumin Globulin Albumin/Globulin Ratio Review of Systems - Review of Systems Systems not reviewed;Unavailable: Intubated Critical Care Progress Note - Ventilator Checklist Head of Bed 30 Degrees: Yes Daily Sedation Vacation: Yes Daily Spontaneous Breathing Trial: No (Requiring high FiO2) PUD Prophalyxis: Yes DVT Prophylaxis: Yes Assessment/Plan (1) Acute respiratory failure with hypoxia Current Visit: Yes Status: Acute Comment: Acute respiratory failure most likely secondary to pneumonia rule out CHF Echocardiogram Cardiology evaluation Continue anticoagulation Continue IV antibiotics and follow-up pro-calcitonin level CAT scan of the chest with IV contrast Reduced FiO2 as tolerated. No weaning yet (2) Pneumonia Current Visit: Yes Status: Acute (3) Pulmonary edema Current Visit: Yes Status: Acute
[2017-03-20] MEDS ORDERED: Iodixanol 320 mg/ml 150 ml Bottle IV ONE (12:27)
--- NOTE | 2017-03-20 13:15 | CP.PCM.CON ---
History of Present Illness - History of Present Illness History of Present Illness: Consultation for evaluation of acute respiratory distress / CHF HPI : 61-year-old female with past medical history significant for hypertension brought into the ED by EMS for an episode of hypertension weakness patient's daughter who works at [employer] fell that on 5:30 in the morning patient blood pressure was running low she brought her to the ED where she was severely short of breath. Patient has some issues regarding compliance of medications but according to the review of records and her patient has been taking her medication on a daily basis. On initial presentation she was severely hypoxemic and intubated in the ED and subsequently transferred to the ICU. According to the nursing staff she was kept on levo fed for 12 hours. Patient at the time of my evaluation intubated and sedated most of the information obtained by review of records country manager and the nursing staff. Past medical history as stated above significant for hypertension. Family history significant for diabetes hypertension and malignancy social history denies history of smoking alcohol or illicit drug use. Chest x-ray showed right-sided diffuse with obesity with small to moderate right pleural effusion. She has been initiated on vancomycin and cefepime blood cultures are pending. ABG shows severe hypoxemia initial EKG is sinus tach with few PVCs initial troponin was negative and BNP was 2450. Echocardiogram done overnight showed ejection fraction of 40% with severe biatrial enlargement mildly dilated LV. Review of Systems - Review of Systems Systems not reviewed;Unavailable: Altered Mental Status, Intubated All systems: reviewed and no additional remarkable complaints except - Constitutional Constitutional: As Per HPI, Lethargy - EENT Eyes: As Per HPI Nose/Mouth/Throat: As Per HPI - Breasts Breasts: As Per HPI - Cardiovascular Cardiovascular: As Per HPI, Dyspnea - Respiratory Respiratory: As Per HPI - Gastrointestinal Gastrointestinal: As Per HPI - Genitourinary Genitourinary: As Per HPI - Reproductive: Female Reproductive:Female: As Per HPI - Menstruation Menstruation: As Per HPI - Musculoskeletal Musculoskeletal: As Per HPI - Integumentary Integumentary: As Per HPI - Neurological Neurological: As Per HPI - Psychiatric Psychiatric: As Per HPI - Endocrine Endocrine: As Per HPI - Hematologic/Lymphatic Hematologic: As Per HPI Past Patient History - Past Medical History & Family History Pertinent Family History: +ve for HTN, DM and malignancy - Past Social History Smoking Status: Never Smoked - CARDIAC Hx Hypertension: Yes - MUSCULOSKELETAL/RHEUMATOLOGICAL Hx Falls: No - PSYCHIATRIC Hx Substance Use: No Meds Allergies/Adverse Reactions: Allergies Allergy/AdvReac Type Severity Reaction Status Date / Time No Known Allergies Allergy Unverified 08/30/14 19:13 - Medications Medications: Current Medications Famotidine (Pepcid) 20 mg IVP DAILY [facility] Last Admin: 03/20/17 10:15 Dose: 20 mg Heparin Sodium (Porcine) (Heparin) 5,000 units SC Q8 [facility] Last Admin: 03/20/17 06:43 Dose: 5,000 units Propofol (Diprivan) 1,000 mg in 100 mls @ 3.266 mls/hr IV .Q24H PRN; Protocol; 5 MCG/KG/MIN PRN Reason: TITRATE PER MD ORDER Last Admin: 03/20/17 09:38 Dose: 30.61 mcg/kg/min, 19.994 mls/hr Norepinephrine Bitartrate 8 mg (/ Dextrose) 258 mls @ 7.74 mls/hr IV .Q24H PRN ; Protocol; 4 MCG/MIN PRN Reason: TITRATE PER MD ORDER Cefepime HCl 1 gm/ Dextrose 50 mls @ 100 mls/hr IVPB Q12H [facility] Last Admin: 03/20/17 01:00 Dose: 100 mls/hr Vancomycin HCl 1 gm/ Sodium (Chloride) 250 mls @ 166.7 mls/hr IVPB Q24H [facility] Last Admin: 03/19/17 13:51 Dose: Not Given Physical Exam - Constitutional Appears: Toxic - Head Exam Head Exam: ATRAUMATIC, NORMAL INSPECTION, NORMOCEPHALIC - Eye Exam Eye Exam: Normal appearance Pupil Exam: NORMAL ACCOMODATION, PERRL - ENT Exam ENT Exam: Mucous Membranes Moist, Normal Exam - Neck Exam Neck exam: Positive for: Normal Inspection - Respiratory Exam Respiratory Exam: Decreased Breath Sounds, Rales, Rhonchi - Cardiovascular Exam Cardiovascular Exam: Tachycardia, REGULAR RHYTHM, +S1, +S2, Systolic Murmur - GI/Abdominal Exam GI & Abdominal Exam: Normal Bowel Sounds, Soft - Rectal Exam Rectal Exam: Deferred - Extremities Exam Extremities exam: Positive for: normal inspection Results - Vital Signs Recent Vital Signs: Last Vital Signs Temp 98.1 F 03/20/17 08:00 Pulse 109 H 03/20/17 10:00 Resp 13 03/20/17 10:00 BP 100/78 03/20/17 10:00 Pulse Ox 96 03/20/17 10:00 - Labs Result Diagrams: 03/20/17 07:26 03/20/17 06:47 Labs: Laboratory Results - last 24 hr 03/19/17 03/20/17 03/20/17 13:20 04:40 06:47 WBC RBC Hgb Hct MCV MCH MCHC RDW Plt Count MPV Neut % (Auto) Lymph % (Auto) [place] % (Auto) Eos % (Auto) Baso % (Auto) Neut # Lymph # [place] # Eos # Baso # Puncture Site Rr Rr pCO2 36 35 pO2 162 H 88 HCO3 24.8 27.0 ABG pH 7.43 7.48 H ABG Total CO2 25.0 27.2 ABG O2 Saturation 98.6 H 97.4 ABG Base Excess -0.1 2.7 ABG Hemoglobin 12.5 11.6 L ABG Carboxyhemoglobin 0.8 0.7 POC ABG HHb (Measured) 1.4 2.6 ABG Methemoglobin 0.8 0.6 [place] Test Pos Pos A-a O2 Difference 506.0 439.0 Respiratory Index 3.1 5.0 Hgb O2 Saturation 97.0 96.1 Vent Mode Prvc Prvc Mechanical Rate 12 12 FiO2 100.0 80.0 Tidal Volume 500 500 PEEP 5 5 Sodium 139 Potassium 3.2 L Chloride 106 Carbon Dioxide 24 Anion Gap 12 BUN 14 Creatinine 0.7 Est GFR ( Amer) > 60 Est GFR (Non-Af Amer) > 60 Random Glucose 100 Calcium 8.5 L Phosphorus 3.1 Magnesium 2.0 Total Bilirubin 0.8 AST 39 H D ALT 54 H Alkaline Phosphatase 50 Total Protein 5.9 L Albumin 3.1 L D Globulin 2.7 Albumin/Globulin Ratio 1.1 03/20/17 07:26 WBC 10.5 RBC 3.91 Hgb 11.8 D Hct 36.6 MCV 93.6 MCH 30.3 MCHC 32.4 L RDW 13.6 Plt Count 180 MPV 9.7 Neut % (Auto) 79.4 H Lymph % (Auto) 14.3 L [place] % (Auto) 5.7 Eos % (Auto) 0.3 Baso % (Auto) 0.3 Neut # 8.4 H Lymph # 1.5 [place] # 0.6 Eos # 0.0 Baso # 0.0 Puncture Site pCO2 pO2 HCO3 ABG pH ABG Total CO2 ABG O2 Saturation ABG Base Excess ABG Hemoglobin ABG Carboxyhemoglobin POC ABG HHb (Measured) ABG Methemoglobin [place] Test A-a O2 Difference Respiratory Index Hgb O2 Saturation Vent Mode Mechanical Rate FiO2 Tidal Volume PEEP Sodium Potassium Chloride Carbon Dioxide Anion Gap BUN Creatinine Est GFR ( Amer) Est GFR (Non-Af Amer) Random Glucose Calcium Phosphorus Magnesium Total Bilirubin AST ALT Alkaline Phosphatase Total Protein Albumin Globulin Albumin/Globulin Ratio Assessment & Plan (1) CHF (congestive heart failure), NYHA class IV Assessment and Plan: new onset respiratory support with vent maintain hemodynamics will need further w/u once extubated to evaluate etiology of new onset CHF Status: Acute (2) Acute respiratory failure with hypoxia Assessment and Plan: vent support abx Status: Acute (3) Hypotension Assessment and Plan: stable now off pressors Status: Acute (4) Pneumonia Assessment and Plan: on Abx Status: Acute (5) Pulmonary edema Assessment and Plan: lasix prn Status: Acute
--- NOTE | 2017-03-20 13:19 | CT ---
PROCEDURE: CT Chest with contrast (Pulmonary Angiogram) HISTORY: r/o pe COMPARISON: None available. TECHNIQUE: Axial computed tomography images were obtained of the chest in the pulmonary arterial phase of enhancement. Coronal and sagittal reformatted images were created and reviewed. Intravenous contrast dose: 100 mL Visipaque 320 Radiation dose: Total exam DLP = 543.77 mGy-cm. This CT exam was performed using one or more of the following dose reduction techniques: Automated exposure control, adjustment of the mA and/or kV according to patient size, and/or use of iterative reconstruction technique. FINDINGS: PULMONARY ARTERIES: Unremarkable. No pulmonary embolism. AORTA: No acute findings. No thoracic aortic aneurysm. LUNGS: Almost complete atelectasis of left lower lobe. Complete right lower lobe atelectasis. Partial compressive atelectasis right upper lobe. Moderate to large right pleural effusion. Small left pleural effusion. Nonspecific patchy opacities in right upper lobe and in apical posterior left upper lobe. Possible early pneumonia. Followup advised. PLEURAL SPACES: As above. Bilateral pleural effusion right greater than left. HEART: Cardiomegaly. ET tube 4 cm above tracheal korey. NG tube noted traversing the thoracic esophagus. LYMPH NODES: Shotty subcentimeter mediastinal lymph nodes common nonspecific. No hilar lymphadenopathy. BONES, CHEST WALL: Unremarkable. No fracture or destructive lesion OTHER FINDINGS: Probable hepatomegaly. Nonspecific 11 mm rounded low-attenuation lesion in medial segment left hepatic lobe. IMPRESSION: No evidence of pulmonary embolism. Bilateral pleural effusion, right greater than left. Extensive bilateral lower lobe atelectasis with subsegmental right upper lobe atelectasis. Patchy opacities in both upper lobes. Possible early pneumonia. Followup advised. ET tube appropriately positioned. NG tube noted. Cardiomegaly. Possible hepatomegaly. Nonspecific 11 mm low-attenuation in left lobe of liver.
--- NOTE | 2017-03-20 17:30 | CP.PCM.PN ---
Subjective - Date & Time of Evaluation Date of Evaluation: 03/20/17 Time of Evaluation: 14:00 - Subjective Subjective: Patient was seen and examined in ICU. Patient is intubated and sedated. Objective - Vital Signs/Intake and Output Vital Signs (last 24 hours): Temp Pulse Resp BP Pulse Ox 99.7 F H 111 H 17 115/56 L 96 03/20/17 16:00 03/20/17 17:10 03/20/17 17:10 03/20/17 17:00 03/20/17 17:10 Intake and Output: 03/20/17 03/20/17 06:59 18:59 Intake Total 460 618 Output Total 1115 585 Balance -655 33 - Medications Medications: Current Medications Famotidine (Pepcid) 20 mg IVP DAILY [facility] Last Admin: 03/20/17 10:15 Dose: 20 mg Heparin Sodium (Porcine) (Heparin) 5,000 units SC Q8 [facility] Last Admin: 03/20/17 14:24 Dose: 5,000 units Propofol (Diprivan) 1,000 mg in 100 mls @ 3.266 mls/hr IV .Q24H PRN; Protocol; 5 MCG/KG/MIN PRN Reason: TITRATE PER MD ORDER Last Admin: 03/20/17 09:38 Dose: 30.61 mcg/kg/min, 19.994 mls/hr Norepinephrine Bitartrate 8 mg (/ Dextrose) 258 mls @ 7.74 mls/hr IV .Q24H PRN ; Protocol; 4 MCG/MIN PRN Reason: TITRATE PER MD ORDER Cefepime HCl 1 gm/ Dextrose 50 mls @ 100 mls/hr IVPB Q12H [facility] Last Admin: 03/20/17 14:19 Dose: 100 mls/hr Vancomycin HCl 1 gm/ Sodium (Chloride) 250 mls @ 166.7 mls/hr IVPB Q24H [facility] Last Admin: 03/20/17 14:21 Dose: 166.7 mls/hr - Labs Labs: 03/20/17 07:26 03/20/17 06:47 PT 12.5 SECONDS (9.7-12.2) H 03/19/17 06:57 INR 1.1 03/19/17 06:57 APTT 29 SECONDS (21-34) 03/19/17 06:57 - Head Exam Head Exam: ATRAUMATIC, NORMOCEPHALIC - Eye Exam Eye Exam: Normal appearance - Respiratory Exam Additional comments: Intubated and sedated. Transmitted breath sounds. - Cardiovascular Exam Cardiovascular Exam: REGULAR RHYTHM, +S1, +S2 - GI/Abdominal Exam GI & Abdominal Exam: Soft - Extremities Exam Extremities Exam: absent: Pedal Edema Assessment and Plan (1) Acute respiratory failure with hypoxia Status: Acute (2) CHF (congestive heart failure), NYHA class IV Status: Acute (3) Hypotension Status: Acute (4) Pneumonia Status: Acute (5) Prophylactic measure Status: Acute (6) Pulmonary edema Status: Acute - Assessment and Plan (Free Text) Plan: Patient is currently intubated on pressor support Went management as per ICU team On antibiotics for pneumonia Follow-up CT angiogram to rule out coronary embolism We'll consider diuresis if no improvement noted. I discussed the plan of care with the ICU attending.
--- NOTE | 2017-03-20 19:56 | CARD ---
APPROVED REPORT EXAM: Two-dimensional and M-mode echocardiogram with Doppler and color Doppler. Other Information Quality : GoodRhythm : NSR INDICATION Dizziness and Vertigo Mitral Valve Prolapse Congestive Heart Failure RISK FACTORS Hypertension M-Mode DIMENSIONS Left Atrium (MM)4.62 (2.5-4.0cm)IVSd0.98 (0.7-1.1cm) Aortic Root3.05 (2.2-3.7cm)LVDd5.14 (4.0-5.6cm) Aortic Cusp Exc.1.61 (1.5-2.0cm)PWd0.85 (0.7-1.1cm) FS (%) 15 %LVDs4.39 (2.0-3.8cm) LVEF (%)31 (>50%) Mitral Valve MV E Aomsmgbs82.0cm/sMV A Epxwzqlt28.0cm/sE/A ratio2.0 TDI E/Lateral E'0.0E/Medial E'0.0 Tricuspid Valve TR Peak Likwnics094nk/sTR Peak Gr.[id number] LEFT VENTRICLE The left ventricle is normal size. There is normal left ventricular wall thickness. The left ventricular function is severely reduced, with diffuse hypokinesis. The septaland apical you are akinetic. The left ventricular ejection fraction is about 10-155 No regional wall motion abnormalities noted. The left ventricular diastolic function is indeterminate. No left ventricle thrombus noted on this study. There is no ventricular septal defect visualized. There is no left ventricular aneurysm. There is no mass noted in the left ventricle. RIGHT VENTRICLE The right ventricle is normal size. There is normal right ventricular wall thickness. The right ventricular systolic function is normal. ATRIA The left atrial vol index is severely dilated. The right atrium size is normal. The interatrial septum is intact with no evidence for an atrial septal defect. AORTIC VALVE The aortic valve is normal in structure and function. No aortic regurgitation is present. There is no aortic valvular stenosis. There is no aortic valvular vegetation. MITRAL VALVE The mitral valve is normal in structure and function. There is no evidence of mitral valve prolapse. There is no mitral valve stenosis. There is mild mitral valve regurgitation noted. TRICUSPID VALVE The tricuspid valve is normal in structure and function. There is no tricuspid valve regurgitation noted. There is no tricuspid valve prolapse or vegetation. There is no tricuspid valve stenosis. PULMONIC VALVE The pulmonary valve is normal in structure and function. There is no pulmonic valvular regurgitation. There is no pulmonic valvular stenosis. GREAT VESSELS The aortic root is normal in size. The ascending aorta is normal in size. The pulmonary artery is normal. The IVC is normal in size and collapses >50% with inspiration. PERICARDIAL EFFUSION The pericardium appears normal. There is no pleural effusion. <Conclusion> Severe cardiomyopathy. mild mitral regurgitation. Severely dilated left atrium
[2017-03-21] MEDS: Propofol 10 mg/ml 1,000 MG/100 ML VIAL IV PRN ×3 (02:07→19:03)
[2017-03-21 06:04] LABS: ABG ALLEN TEST POS; ABG MECHANICAL RATE 12; ARTERIAL BLOOD GAS MODE PRVC; ARTERIAL BLOOD HGB O2 SAT 96.7 % (95.0-98.0); ATERIAL BLOOD GAS PEEP 5; CARBOXYHEMOGLOBIN 0.6 % (0.5-1.5); DRAW SITE RR; HHB 2.2 % (0.0-5.0); METHEMOGLOBIN 0.5 % (0.0-3.0)
[2017-03-21 06:55] LABS: BASO % 0.5 % (0.0-2.0); EOS % 0.4 % (0.0-4.0); HEMATOCRIT 36.2 % (34.0-47.0); LYMPH # 1.9 K/uL (1.0-4.3); MEAN CELL VOLUME 94.5 fL (81.0-99.0); MEAN CORPUSCULAR HEMOGLOBIN 30.9 pg (27.0-31.0); MEAN CORPUSCULAR HGB CONC 32.7 g/dL (33.0-37.0); MEAN PLATELET VOLUME 10.3 fL (7.2-11.7); MONO # 0.7 K/uL (0.0-0.8); RED CELL DISTRIBUTION WIDTH 13.9 % (11.5-14.5); WHITE BLOOD COUNT 10.2 K/uL (4.8-10.8)
[2017-03-21 07:14] LABS: CHLORIDE 107 mmol/L (98-107); POTASSIUM 3.6 mmol/L (3.6-5.2); SODIUM 145 mmol/L (132-148)
[2017-03-21 07:16] LABS: ALKALINE PHOSPHATASE 54 U/L (38-126); AST/SGOT 26 U/L (14-36); BLOOD UREA NITROGEN 17 mg/dL (7-17); CARBON DIOXIDE 27 mmol/L (22-30); GFR AFRICAN-AMERICAN > 60; TOTAL PROTEIN 6.4 g/dL (6.3-8.3)
[2017-03-21 07:17] LABS: ALT/SGPT 40 U/L (9-52); CALCIUM 8.5 mg/dl (8.6-10.4); GLUCOSE,RANDOM 101 mg/dL (65-105); MAGNESIUM 2.2 mg/dL (1.6-2.3); PHOSPHOROUS 2.8 mg/dL (2.5-4.5)
--- NOTE | 2017-03-21 09:07 | CP.PCM.PN ---
Subjective - Date & Time of Evaluation Date of Evaluation: 03/21/17 Time of Evaluation: 13:00 - Subjective Subjective: Patient was seen and examined in ICU. Patient is intubated and sedated. Family is present at bedside. Objective - Vital Signs/Intake and Output Vital Signs (last 24 hours): Temp Pulse Resp BP Pulse Ox 99.4 F 110 H 14 123/63 97 03/21/17 04:00 03/21/17 07:00 03/21/17 07:00 03/21/17 07:00 03/21/17 07:00 Intake and Output: 03/21/17 03/21/17 06:59 18:59 Intake Total 405.4 15 Output Total 370 30 Balance 35.4 -15 - Medications Medications: Current Medications Famotidine (Pepcid) 20 mg IVP DAILY [facility] Last Admin: 03/20/17 10:15 Dose: 20 mg Furosemide (Lasix) 40 mg IVP Q12H [facility] Heparin Sodium (Porcine) (Heparin) 5,000 units SC Q8 [facility] Last Admin: 03/21/17 06:47 Dose: 5,000 units Propofol (Diprivan) 1,000 mg in 100 mls @ 3.266 mls/hr IV .Q24H PRN; Protocol; 5 MCG/KG/MIN PRN Reason: TITRATE PER MD ORDER Last Admin: 03/21/17 02:07 Dose: 22.96 mcg/kg/min, 15 mls/hr Cefepime HCl 1 gm/ Dextrose 50 mls @ 100 mls/hr IVPB Q12H [facility] Last Admin: 03/21/17 02:03 Dose: 100 mls/hr Vancomycin HCl 1 gm/ Sodium (Chloride) 250 mls @ 166.7 mls/hr IVPB Q24H [facility] Last Admin: 03/20/17 14:21 Dose: 166.7 mls/hr - Labs Labs: 03/21/17 06:48 03/21/17 06:48 PT 12.5 SECONDS (9.7-12.2) H 03/19/17 06:57 INR 1.1 03/19/17 06:57 APTT 29 SECONDS (21-34) 03/19/17 06:57 - Head Exam Head Exam: ATRAUMATIC, NORMOCEPHALIC - Eye Exam Eye Exam: PERRL - ENT Exam ENT Exam: Mucous Membranes Moist - Respiratory Exam Additional comments: Patient is intubated on ventilator support. Transmitted breath sounds present. - Cardiovascular Exam Cardiovascular Exam: REGULAR RHYTHM, +S1, +S2 - GI/Abdominal Exam GI & Abdominal Exam: Soft - Extremities Exam Extremities Exam: absent: Pedal Edema Assessment and Plan (1) Acute respiratory failure with hypoxia Assessment & Plan: Possibly secondary to pneumonia versus congestive heart failure. Patient is currently intubated. Weaning in progress. Status: Acute (2) CHF (congestive heart failure), NYHA class IV Assessment & Plan: Patient is on Lasix IV twice a day. Status: Acute (3) Hypotension Assessment & Plan: Possibly secondary to sepsis. Blood pressure is stable now. Status: Acute (4) Pneumonia Assessment & Plan: Continue antibiotics. Status: Acute (5) Pulmonary edema Assessment & Plan: Possibly secondary to CHF. Continue diuresis. Monitor closely with the daily chest x-ray. Status: Acute (6) Prophylactic measure Assessment & Plan: On GI and DVT prophylaxis. Status: Acute
--- NOTE | 2017-03-21 09:46 | RAD ---
HISTORY: follow up intubated COMPARISON: Chest x-ray performed 03/20/17 TECHNIQUE: Chest, one view. FINDINGS: Examination limited by habitus, hypoinflation, and patient obliquity. The endotracheal tube terminates approximately 3.3 cm above the [place]. Nasogastric tube extends to the expected location of the stomach. LUNGS: Small [id number]-left pleural effusions associated consolidations. Mild pulmonary venous congestion. No definite pneumothorax. CARDIOVASCULAR: Cardiomegaly. OSSEOUS STRUCTURES: Degenerative changes. VISUALIZED UPPER ABDOMEN: Unremarkable. OTHER FINDINGS: None. IMPRESSION: The endotracheal tube terminates approximately 3.3 cm above the [place]. Nasogastric tube extends to the expected location of the stomach. Small qkkan-[id number]-[id number]-left pleural effusions associated consolidations. Mild pulmonary venous congestion. Cardiomegaly.
[2017-03-21] MEDS: Potassium Chloride 20 mEq/15 ml LIQ UD PO SCH (09:57)
[2017-03-21 12:25] LABS: RBC URINE 6892 /hpf (0-3); URINE BILIRUBIN NEGATIVE (NEGATIVE); URINE BLOOD 2+ (NEGATIVE); URINE GLUCOSE (UA) NORMAL (Normal); URINE KETONE 1+ mg/dL (NEGATIVE); URINE LEUKOCYTE ESTERASE TRACE Leu/uL (Negative); URINE PROTEIN 2+ mg/dL (NEGATIVE); URINE UROBILINOGEN NORMAL mg/dL (0.2-1.0); WBC URINE 8 /hpf (0-5)
[2017-03-21 12:26] LABS: URINE COLOR DARK BROWN (YELLOW)
--- NOTE | 2017-03-21 12:43 | CP.CCUPN ---
CCU Subjective - Physician Review Events Since Last Encounter (Free Text): 03/21/17 12:39 Patient seen and examined in the intensive care unit. Case discussed with house staff in the morning rounds. Remains intubated on ventilator support requiring high FiO2 Chest x-ray persistent bilateral pleural effusion and CHF On IV antibiotics Patient is awake and responsive Started on NGT feeding CCU Objective - Vital Signs / Intake & Output Vital Signs (Last 4 hours): Vital Signs Temp Pulse Resp BP Pulse Ox 03/21/17 12:00 98.1 F 115 H 14 120/72 97 03/21/17 11:00 127 H 15 113/70 97 03/21/17 10:00 102 H 16 132/68 97 03/21/17 09:57 126/82 03/21/17 09:00 102 H 14 126/82 92 L Intake and Output (Last 8hrs): Intake & Output 03/20/17 03/21/17 03/21/17 22:59 06:59 14:59 Intake Total 260 225.4 165 Output Total 213 786 9600 Balance -205 -24.6 -1015 Weight 214 lb 8.156 oz Intake: IV 100 100 100 Intake, IV Amount 160 125.4 65 Right Proximal Port 160 125.4 65 Femoral Output: Urine 388 152 7703 Urethral (Leon) [phone] Other: # Bowel Movements 0 0 0 - Physical Exam Head: Positive for: Atraumatic, Normocephalic Pupils: Positive for: PERRL Conjunctiva: Positive for: Normal Mouth: Positive for: Moist Mucous Membranes Neck: Positive for: Trachea Midline Respiratory/Chest: Positive for: Decreased Breath Sounds Cardiovascular: Positive for: Regular Rate and Rhythm Abdomen: Positive for: Normal Bowel Sounds Upper Extremity: Positive for: Normal Inspection Lower Extremity: Positive for: Normal Inspection - Medications Active Medications: Active Medications Generic Name Dose Route Start Last Admin Trade Name Freq PRN Reason Stop Dose Admin Famotidine 20 mg 03/20/17 10:00 03/21/17 09:57 Pepcid IVP 20 mg DAILY [facility] Administration Furosemide 40 mg 03/21/17 09:15 03/21/17 09:57 Lasix IVP 40 mg Q12H [facility] Administration Heparin Sodium (Porcine) 5,000 units 03/19/17 14:00 03/21/17 06:47 Heparin SC 5,000 units Q8 [facility] Administration Propofol 1,000 mg in 100 mls @ 3.266 mls/hr 03/19/17 07:31 03/21/17 10:19 Diprivan IV 15.3 mcg/kg/min .Q24H PRN 9.994 mls/hr TITRATE PER MD ORDER Administration Protocol 5 MCG/KG/MIN Cefepime HCl 1 gm/ Dextrose 50 mls @ 100 mls/hr 03/19/17 13:00 03/21/17 02:03 IVPB 100 mls/hr Q12H [facility] Administration Vancomycin HCl 1 gm/ Sodium 250 mls @ 166.7 mls/hr 03/19/17 14:00 03/20/17 14 :21 Chloride IVPB 166.7 mls/hr Q24H [facility] Administration Potassium Chloride 40 meq 03/21/17 10:00 03/21/17 09:57 Potassium Chloride Oral Soln PO 40 meq DAILY [facility] Administration - Patient Studies Lab Studies: Microbiology Studies 03/19/17 12:50 Gram Stain - Final Trachasp 03/19/17 10:22 MRSA Culture (Admit) - Final Naris MRSA NOT DETECTED Lab Studies 03/21/17 03/21/17 03/21/17 Range/Units 12:11 06:48 06:48 WBC 10.2 (4.8-10.8) K/uL RBC 3.83 (3.80-5.20) Mil/uL Hgb 11.8 (11.0-16.0) g/dL Hct 36.2 (34.0-47.0) % MCV 94.5 (81.0-99.0) fL MCH 30.9 (27.0-31.0) pg MCHC 32.7 L (33.0-37.0) g/dL RDW 13.9 (11.5-14.5) % Plt Count 171 (130-400) K/uL MPV 10.3 (7.2-11.7) fL Neut % (Auto) 73.1 (50.0-75.0) % Lymph % (Auto) 19.0 L (20.0-40.0) % Carver % (Auto) 7.0 (0.0-10.0) % Eos % (Auto) 0.4 (0.0-4.0) % Baso % (Auto) 0.5 (0.0-2.0) % Neut # 7.5 H (1.8-7.0) K/uL Lymph # 1.9 (1.0-4.3) K/uL Carver # 0.7 (0.0-0.8) K/uL Eos # 0.0 (0.0-0.7) K/uL Baso # 0.0 (0.0-0.2) K/uL Puncture Site pCO2 (35-45) mm/Hg pO2 (80-100) mm/Hg HCO3 (21-28) mmol/L ABG pH (7.35-7.45) ABG Total CO2 (22-28) mmol/L ABG O2 Saturation (95-98) % ABG Base Excess (-2.0-3.0) mmol/L ABG Hemoglobin (11.7-17.4) g/dL ABG Carboxyhemoglobin (0.5-1.5) % POC ABG HHb (Measured) (0.0-5.0) % ABG Methemoglobin (0.0-3.0) % Santiago Test A-a O2 Difference mm/Hg Respiratory Index Hgb O2 Saturation (95.0-98.0) % Vent Mode Mechanical Rate FiO2 % Tidal Volume PEEP Sodium 145 (132-148) mmol/L Potassium 3.6 (3.6-5.2) mmol/L Chloride 107 (98-107) mmol/L Carbon Dioxide 27 (22-30) mmol/L Anion Gap 15 (10-20) BUN 17 (7-17) mg/dL Creatinine 0.6 L (0.7-1.2) MG/DL Est GFR ( Amer) > 60 Est GFR (Non-Af Amer) > 60 Random Glucose 101 (65-105) mg/dL Calcium 8.5 L (8.6-10.4) mg/dl Phosphorus 2.8 (2.5-4.5) mg/dL Magnesium 2.2 (1.6-2.3) mg/dL Total Bilirubin 1.0 (0.2-1.3) mg/dL AST 26 (14-36) U/L ALT 40 (9-52) U/L Alkaline Phosphatase 54 (38-126) U/L Total Protein 6.4 (6.3-8.3) g/dL Albumin 3.1 L (3.5-5.0) g/dL Globulin 3.2 (2.2-3.9) gm/dL Albumin/Globulin Ratio 1.0 (1.0-2.1) Procalcitonin (0.19-0.49) NG/ML Urine Color Dark brown (YELLOW) Urine Clarity Hazy (Clear) Urine pH 6.0 (5.0-8.0) Ur Specific [place] 1.025 (1.003-1.030) Urine Protein 2+ H (NEGATIVE) mg/dL Urine Glucose (UA) Normal (Normal) mg/dL Urine Ketones 1+ H (NEGATIVE) mg/dL Urine Blood 2+ H (NEGATIVE) Urine Nitrate Negative (NEGATIVE) Urine Bilirubin Negative (NEGATIVE) Urine Urobilinogen Normal (0.2-1.0) mg/dL Ur Leukocyte Esterase Trace (Negative) Qian/uL Urine WBC (Auto) 8 H (0-5) /hpf Urine RBC (Auto) 6892 H (0-3) /hpf 03/21/17 03/20/17 Range/Units 05:25 12:45 WBC (4.8-10.8) K/uL RBC (3.80-5.20) Mil/uL Hgb (11.0-16.0) g/dL Hct (34.0-47.0) % MCV (81.0-99.0) fL MCH (27.0-31.0) pg MCHC (33.0-37.0) g/dL RDW (11.5-14.5) % Plt Count (130-400) K/uL MPV (7.2-11.7) fL Neut % (Auto) (50.0-75.0) % Lymph % (Auto) (20.0-40.0) % Carver % (Auto) (0.0-10.0) % Eos % (Auto) (0.0-4.0) % Baso % (Auto) (0.0-2.0) % Neut # (1.8-7.0) K/uL Lymph # (1.0-4.3) K/uL Carver # (0.0-0.8) K/uL Eos # (0.0-0.7) K/uL Baso # (0.0-0.2) K/uL Puncture Site Rr pCO2 37 (35-45) mm/Hg pO2 99 (80-100) mm/Hg HCO3 25.8 (21-28) mmol/L ABG pH 7.44 (7.35-7.45) ABG Total CO2 26.2 (22-28) mmol/L ABG O2 Saturation 97.8 (95-98) % ABG Base Excess 1.1 (-2.0-3.0) mmol/L ABG Hemoglobin 11.9 (11.7-17.4) g/dL ABG Carboxyhemoglobin 0.6 (0.5-1.5) % POC ABG HHb (Measured) 2.2 (0.0-5.0) % ABG Methemoglobin 0.5 (0.0-3.0) % Santiago Test Pos A-a O2 Difference 425.0 mm/Hg Respiratory Index 4.3 Hgb O2 Saturation 96.7 (95.0-98.0) % Vent Mode Prvc Mechanical Rate 12 FiO2 80.0 % Tidal Volume 500 PEEP 5 Sodium (132-148) mmol/L Potassium (3.6-5.2) mmol/L Chloride (98-107) mmol/L Carbon Dioxide (22-30) mmol/L Anion Gap (10-20) BUN (7-17) mg/dL Creatinine (0.7-1.2) MG/DL Est GFR ( Amer) Est GFR (Non-Af Amer) Random Glucose (65-105) mg/dL Calcium (8.6-10.4) mg/dl Phosphorus (2.5-4.5) mg/dL Magnesium (1.6-2.3) mg/dL Total Bilirubin (0.2-1.3) mg/dL AST (14-36) U/L ALT (9-52) U/L Alkaline Phosphatase (38-126) U/L Total Protein (6.3-8.3) g/dL Albumin (3.5-5.0) g/dL Globulin (2.2-3.9) gm/dL Albumin/Globulin Ratio (1.0-2.1) Procalcitonin 0.24 (0.19-0.49) NG/ML Urine Color (YELLOW) Urine Clarity (Clear) Urine pH (5.0-8.0) Ur Specific [place] (1.003-1.030) Urine Protein (NEGATIVE) mg/dL Urine Glucose (UA) (Normal) mg/dL Urine Ketones (NEGATIVE) mg/dL Urine Blood (NEGATIVE) Urine Nitrate (NEGATIVE) Urine Bilirubin (NEGATIVE) Urine Urobilinogen (0.2-1.0) mg/dL Ur Leukocyte Esterase (Negative) Qian/uL Urine WBC (Auto) (0-5) /hpf Urine RBC (Auto) (0-3) /hpf Laboratory Results - last 24 hr 03/20/17 03/21/17 03/21/17 12:45 05:25 06:48 WBC 10.2 RBC 3.83 Hgb 11.8 Hct 36.2 MCV 94.5 MCH 30.9 MCHC 32.7 L RDW 13.9 Plt Count 171 MPV 10.3 Neut % (Auto) 73.1 Lymph % (Auto) 19.0 L Carver % (Auto) 7.0 Eos % (Auto) 0.4 Baso % (Auto) 0.5 Neut # 7.5 H Lymph # 1.9 Carver # 0.7 Eos # 0.0 Baso # 0.0 Puncture Site Rr pCO2 37 pO2 99 HCO3 25.8 ABG pH 7.44 ABG Total CO2 26.2 ABG O2 Saturation 97.8 ABG Base Excess 1.1 ABG Hemoglobin 11.9 ABG Carboxyhemoglobin 0.6 POC ABG HHb (Measured) 2.2 ABG Methemoglobin 0.5 Santiago Test Pos A-a O2 Difference 425.0 Respiratory Index 4.3 Hgb O2 Saturation 96.7 Vent Mode Prvc Mechanical Rate 12 FiO2 80.0 Tidal Volume 500 PEEP 5 Sodium Potassium Chloride Carbon Dioxide Anion Gap BUN Creatinine Est GFR ( Amer) Est GFR (Non-Af Amer) Random Glucose Calcium Phosphorus Magnesium Total Bilirubin AST ALT Alkaline Phosphatase Total Protein Albumin Globulin Albumin/Globulin Ratio Procalcitonin 0.24 Urine Color Urine Clarity Urine pH Ur Specific [place] Urine Protein Urine Glucose (UA) Urine Ketones Urine Blood Urine Nitrate Urine Bilirubin Urine Urobilinogen Ur Leukocyte Esterase Urine WBC (Auto) Urine RBC (Auto) 03/21/17 03/21/17 06:48 12:11 WBC RBC Hgb Hct MCV MCH MCHC RDW Plt Count MPV Neut % (Auto) Lymph % (Auto) Carver % (Auto) Eos % (Auto) Baso % (Auto) Neut # Lymph # Carver # Eos # Baso # Puncture Site pCO2 pO2 HCO3 ABG pH ABG Total CO2 ABG O2 Saturation ABG Base Excess ABG Hemoglobin ABG Carboxyhemoglobin POC ABG HHb (Measured) ABG Methemoglobin [place] Test A-a O2 Difference Respiratory Index Hgb O2 Saturation Vent Mode Mechanical Rate FiO2 Tidal Volume PEEP Sodium 145 Potassium 3.6 Chloride 107 Carbon Dioxide 27 Anion Gap 15 BUN 17 Creatinine 0.6 L Est GFR ( Amer) > 60 Est GFR (Non-Af Amer) > 60 Random Glucose 101 Calcium 8.5 L Phosphorus 2.8 Magnesium 2.2 Total Bilirubin 1.0 AST 26 ALT 40 Alkaline Phosphatase 54 Total Protein 6.4 Albumin 3.1 L Globulin 3.2 Albumin/Globulin Ratio 1.0 Procalcitonin Urine Color Dark brown Urine Clarity Hazy Urine pH 6.0 Ur Specific [place] 1.025 Urine Protein 2+ H Urine Glucose (UA) Normal Urine Ketones 1+ H Urine Blood 2+ H Urine Nitrate Negative Urine Bilirubin Negative Urine Urobilinogen Normal Ur Leukocyte Esterase Trace Urine WBC (Auto) 8 H Urine RBC (Auto) 6892 H Review of Systems - Review of Systems Systems not reviewed;Unavailable: Intubated Critical Care Progress Note - Ventilator Checklist Head of Bed 30 Degrees: Yes Daily Sedation Vacation: Yes Daily Spontaneous Breathing Trial: No (Requiring high FiO2) PUD Prophalyxis: Yes DVT Prophylaxis: Yes - Vent Settings MODE:: [facility] Assessment/Plan (1) Acute respiratory failure with hypoxia Current Visit: Yes Status: Acute Comment: Acute respiratory failure most likely secondary to CHF Echocardiogram, ejection fraction close to 40% Patient seen by cardiology Continue anticoagulation for A. fib with rapid ventricular rate Continue IV antibiotics CAT scan of the chest with IV contrast, showed no pulmonary embolism and bilateral pleural effusion Reduced FiO2 as tolerated. No weaning yet Lasix 40 mg twice a day Thoracentesis if no change (2) Pneumonia Current Visit: Yes Status: Acute (3) Pulmonary edema Current Visit: Yes Status: Acute
[2017-03-21 16:19] LABS: CHLORIDE 106 mmol/L (98-107)
[2017-03-21 16:20] LABS: POTASSIUM 3.4 mmol/L (3.6-5.2); SODIUM 145 mmol/L (132-148)
[2017-03-21 16:22] LABS: GFR AFRICAN-AMERICAN > 60
[2017-03-21 16:23] LABS: BLOOD UREA NITROGEN 16 mg/dL (7-17); CALCIUM 8.4 mg/dl (8.6-10.4); CARBON DIOXIDE 26 mmol/L (22-30); GLUCOSE,RANDOM 97 mg/dL (65-105)
[2017-03-21] MEDS ORDERED: Enoxaparin 100 mg Syringe SC SCH (22:00)
[2017-03-21] MEDS ORDERED: Enoxaparin 120 mg Syringe SC SCH (22:00)
[2017-03-22 05:58] LABS: ABG ALLEN TEST POS; ABG MECHANICAL RATE 12; ARTERIAL BLOOD GAS MODE PRVC; ARTERIAL BLOOD HGB O2 SAT 95.7 % (95.0-98.0); ATERIAL BLOOD GAS PEEP 5; CARBOXYHEMOGLOBIN 0.8 % (0.5-1.5); DRAW SITE RR; HHB 2.7 % (0.0-5.0); METHEMOGLOBIN 0.8 % (0.0-3.0)
[2017-03-22 06:38] LABS: BASO # 0.1 K/uL (0.0-0.2); BASO % 0.5 % (0.0-2.0); EOS # 0.1 K/uL (0.0-0.7); EOS % 0.7 % (0.0-4.0); HEMATOCRIT 38.7 % (34.0-47.0); LYMPH # 2.5 K/uL (1.0-4.3); LYMPH % 21.8 % (20.0-40.0); MEAN CELL VOLUME 93.3 fL (81.0-99.0); MEAN CORPUSCULAR HEMOGLOBIN 30.6 pg (27.0-31.0); MEAN CORPUSCULAR HGB CONC 32.8 g/dL (33.0-37.0); MEAN PLATELET VOLUME 10.2 fL (7.2-11.7); MONO # 0.7 K/uL (0.0-0.8); MONO % 6.5 % (0.0-10.0); RED CELL DISTRIBUTION WIDTH 13.4 % (11.5-14.5); WHITE BLOOD COUNT 11.3 K/uL (4.8-10.8)
[2017-03-22 06:52] LABS: ALB/GLOB RATIO 1.1 (1.0-2.1); ALKALINE PHOSPHATASE 58 U/L (38-126); ALT/SGPT 39 U/L (9-52); AST/SGOT 25 U/L (14-36); BILIRUBIN,TOTAL 0.9 mg/dL (0.2-1.3); BLOOD UREA NITROGEN 20 mg/dL (7-17); CALCIUM 8.9 mg/dl (8.6-10.4); CARBON DIOXIDE 29 mmol/L (22-30); CHLORIDE 102 mmol/L (98-107); GFR AFRICAN-AMERICAN > 60; GLUCOSE,RANDOM 97 mg/dL (65-105); MAGNESIUM 2.2 mg/dL (1.6-2.3); POTASSIUM 3.1 mmol/L (3.6-5.2); SODIUM 143 mmol/L (132-148); TOTAL PROTEIN 6.5 g/dL (6.3-8.3)
[2017-03-22] MEDS: Propofol 10 mg/ml 1,000 MG/100 ML VIAL IV PRN (08:36)
--- NOTE | 2017-03-22 09:14 | CP.PCM.PN ---
Subjective - Date & Time of Evaluation Date of Evaluation: 03/22/17 Time of Evaluation: 09:00 - Subjective Subjective: Patient was seen and examined. She remains intubated at this time. She is awake, alert, and follows simple commands such as grasping my hand and also lifting her legs. She seemed to indicate that she did not have chest pain or abdominal pain when I saw her however a true review of systems not possible. Reviewed previous notes, the patient has an echo and it shes a lot of left heart weakness, low EF as well left atrial Objective - Vital Signs/Intake and Output Vital Signs (last 24 hours): Temp Pulse Resp BP Pulse Ox 98.8 F 103 H 12 130/70 96 03/22/17 04:00 03/22/17 07:00 03/22/17 07:00 03/22/17 07:00 03/22/17 07:00 Intake and Output: 03/22/17 03/22/17 06:59 18:59 Intake Total 316.0 100 Output Total 1850 Balance -1534.0 100 - Medications Medications: Current Medications Enoxaparin Sodium (Lovenox) 95 mg SC Q12 [facility] Last Admin: 03/21/17 21:45 Dose: 95 mg Famotidine (Pepcid) 20 mg IVP DAILY [facility] Last Admin: 03/21/17 09:57 Dose: 20 mg Furosemide (Lasix) 40 mg IVP Q12H [facility] Last Admin: 03/21/17 20:17 Dose: 40 mg Propofol (Diprivan) 1,000 mg in 100 mls @ 3.266 mls/hr IV .Q24H PRN; Protocol; 5 MCG/KG/MIN PRN Reason: TITRATE PER MD ORDER Last Admin: 03/22/17 08:36 Dose: 9.95 mcg/kg/min, 6.499 mls/hr Cefepime HCl 1 gm/ Dextrose 50 mls @ 100 mls/hr IVPB Q12H [facility] Last Admin: 03/22/17 00:38 Dose: 100 mls/hr Vancomycin HCl 1 gm/ Sodium (Chloride) 250 mls @ 166.7 mls/hr IVPB Q24H [facility] Last Admin: 03/21/17 13:48 Dose: 166.7 mls/hr Potassium Chloride (Potassium Chloride Oral Soln) 40 meq PO DAILY [facility] Last Admin: 03/21/17 09:57 Dose: 40 meq - Labs Labs: 03/22/17 06:31 03/22/17 06:29 PT 12.5 SECONDS (9.7-12.2) H 03/19/17 06:57 INR 1.1 03/19/17 06:57 APTT 29 SECONDS (21-34) 03/19/17 06:57 - Constitutional Appears: Older Than Stated Age, Chronically Ill - Head Exam Head Exam: NORMAL INSPECTION Additional comments: intubated - Eye Exam Eye Exam: EOMI, Normal appearance - ENT Exam ENT Exam: Mucous Membranes Moist - Respiratory Exam Respiratory Exam: Clear to Ausculation Bilateral, NORMAL BREATHING PATTERN Additional comments: Intubated - Cardiovascular Exam Cardiovascular Exam: REGULAR RHYTHM - Neurological Exam Neurological Exam: Alert, Awake Neuro motor strength exam: Left Upper Extremity: 5, Right Upper Extremity: 5 - Psychiatric Exam Psychiatric exam: Normal Affect, Normal Mood Assessment and Plan - Assessment and Plan (Free Text) Assessment: Assessment and Plan (1) Acute respiratory failure with hypoxia Assessment & Plan: 03/22: Patient is still intubated at this time. She is awake and alert. Following simple commands. Possibly secondary to pneumonia versus congestive heart failure. Patient is currently intubated. Weaning in progress. (2) CHF (congestive heart failure), NYHA class IV Assessment & Plan: Patient is on Lasix IV twice a day. Echo showing low EF, also left atrium is very dilated and the left ventricle dilated. Hypokinesis reported. (3) Hypotension Assessment & Plan: Possibly secondary to sepsis. Blood pressure is stable now. (4) Pneumonia Assessment & Plan: 03/22: Continue on Vancomycin and Cefepime IV for the time. Currently the cultures blood negative 48hrs and the sputum and urine are negative at this time. WBC is stable at this time. Afebrile. No fevers recorded this morning however yesterday Tmax was 100.0 (5) Pulmonary edema Assessment & Plan: Possibly secondary to CHF. Continue diuresis. Monitor closely with the daily chest x-ray. (6) Prophylactic measure Assessment & Plan: On GI and DVT prophylaxis.
[2017-03-22] MEDS ORDERED: Enoxaparin 40 mg Syringe SC SCH (10:00)
[2017-03-22] MEDS: Potassium Chloride 20 mEq/15 ml LIQ UD PO SCH (10:23)
[2017-03-22 11:18] LABS: ABG ALLEN TEST POS; ARTERIAL BLOOD GAS MODE CPAP; ATERIAL BLOOD GAS PEEP 5; CARBOXYHEMOGLOBIN 0.6 % (0.5-1.5); DRAW SITE RRA; HHB 1.6 % (0.0-5.0); METHEMOGLOBIN 0.7 % (0.0-3.0)
--- NOTE | 2017-03-22 13:16 | CP.CCUPN ---
<Jailene Mcknight - Last Filed: 03/22/17 15:02> CCU Subjective - Physician Review Subjective (Free Text): Patient was seen and examined at bedside in the morning. Patient was awake and following commands. Patient nodded yes and no to questions- denies having chest pain, abdominal pain, leg pain, and headaches. Review of systems is limited because patient is intubated. 03/22/17 13:09 CCU Objective - Vital Signs / Intake & Output Vital Signs (Last 4 hours): Vital Signs BP 03/22/17 10:20 132/96 H Intake and Output (Last 8hrs): Intake & Output 03/21/17 03/22/17 03/22/17 22:59 06:59 14:59 Intake Total 447 76.0 100 Output Total 1080 920 Balance -633 -844.0 100 Intake: IV 100 0 100 Intake, IV Amount 347 76.0 Right Medial Port 267 Right Proximal Port 80 76.0 Femoral Oral 0 0 Tube Feeding 0 Output: Urine 1080 920 Urethral (Leon) 1080 920 Other: # Bowel Movements 0 0 - Physical Exam Head: Positive for: Atraumatic, Normocephalic Extroacular Muscles: Positive for: EOMI Conjunctiva: Positive for: Normal Mouth: Positive for: Moist Mucous Membranes Neck: Positive for: Trachea Midline Respiratory/Chest: Positive for: Decreased Breath Sounds, Other (increased secretions). Negative for: Wheezes, Rales, Rhonchi Cardiovascular: Positive for: Normal S1, S2, Irregular Rhythm, Tachycardic Abdomen: Positive for: Normal Bowel Sounds. Negative for: Tenderness, Distention Upper Extremity: Positive for: Normal Inspection. Negative for: Edema Lower Extremity: Positive for: Edema Skin: Positive for: Warm, Dry, Normal Color Psychiatric: Positive for: Alert - Medications Active Medications: Active Medications Generic Name Dose Route Start Last Admin Trade Name Freq PRN Reason Stop Dose Admin Enoxaparin Sodium 40 mg 03/22/17 10:00 03/22/17 10:21 Lovenox SC 40 mg DAILY ZUNILDA Administration Famotidine 20 mg 03/20/17 10:00 03/22/17 10:21 Pepcid IVP 20 mg DAILY ZUNILDA Administration Furosemide 40 mg 03/22/17 09:30 03/22/17 10:20 Lasix IVP 40 mg Q24H ZUNILDA Administration Cefepime HCl 1 gm/ Dextrose 50 mls @ 100 mls/hr 03/19/17 13:00 03/22/17 12:05 IVPB 100 mls/hr Q12H ZUNILDA Administration Vancomycin HCl 1 gm/ Sodium 250 mls @ 166.7 mls/hr 03/19/17 14:00 03/21/17 13 :48 Chloride IVPB 166.7 mls/hr Q24H ZUNILDA Administration Potassium Chloride 20 meq in 100 mls @ 50 mls/hr 03/22/17 09:30 03/22/17 11: 33 Potassium Chloride 20 Meq/100 Ml IVPB 03/22/17 13:29 50 mls/hr Q2H ZUNILDA Administration Potassium Chloride 40 meq 03/21/17 10:00 03/22/17 10:23 Potassium Chloride Oral Soln PO 40 meq DAILY ZUNILDA Administration Potassium Chloride 20 meq 03/22/17 10:00 K-Dur 20 Meq Er Tab PO DAILY ZUNILDA - Patient Studies Lab Studies: Microbiology Studies 03/19/17 12:50 Gram Stain - Final Trachasp Sputum Culture - Final NORMAL ORAL STEPHANI Lab Studies 03/22/17 03/22/17 03/22/17 Range/Units 11:14 06:31 06:29 WBC 11.3 H (4.8-10.8) K/uL RBC 4.15 (3.80-5.20) Mil/uL Hgb 12.7 (11.0-16.0) g/dL Hct 38.7 (34.0-47.0) % MCV 93.3 (81.0-99.0) fL MCH 30.6 (27.0-31.0) pg MCHC 32.8 L (33.0-37.0) g/dL RDW 13.4 (11.5-14.5) % Plt Count 194 (130-400) K/uL MPV 10.2 (7.2-11.7) fL Neut % (Auto) 70.5 (50.0-75.0) % Lymph % (Auto) 21.8 (20.0-40.0) % Luce % (Auto) 6.5 (0.0-10.0) % Eos % (Auto) 0.7 (0.0-4.0) % Baso % (Auto) 0.5 (0.0-2.0) % Neut # 8.0 H (1.8-7.0) K/uL Lymph # 2.5 (1.0-4.3) K/uL Luce # 0.7 (0.0-0.8) K/uL Eos # 0.1 (0.0-0.7) K/uL Baso # 0.1 (0.0-0.2) K/uL Puncture Site Rra pCO2 31 L (35-45) mm/Hg pO2 141 H (80-100) mm/Hg HCO3 26.7 (21-28) mmol/L ABG pH 7.51 H (7.35-7.45) ABG Total CO2 25.7 (22-28) mmol/L ABG O2 Saturation 98.4 H (95-98) % ABG Base Excess 2.3 (-2.0-3.0) mmol/L ABG Hemoglobin 13.4 (11.7-17.4) g/dL ABG Carboxyhemoglobin 0.6 (0.5-1.5) % POC ABG HHb (Measured) 1.6 (0.0-5.0) % ABG Methemoglobin 0.7 (0.0-3.0) % Santiago Test Pos A-a O2 Difference 319.0 mm/Hg Respiratory Index 2.3 Hgb O2 Saturation 97.0 (95.0-98.0) % Vent Mode Cpap Mechanical Rate FiO2 70.0 % Tidal Volume PEEP 5 Pressure Support 10 Sodium 143 (132-148) mmol/L Potassium 3.1 L (3.6-5.2) mmol/L Chloride 102 (98-107) mmol/L Carbon Dioxide 29 (22-30) mmol/L Anion Gap 15 (10-20) BUN 20 H (7-17) mg/dL Creatinine 0.6 L (0.7-1.2) MG/DL Est GFR ( Amer) > 60 Est GFR (Non-Af Amer) > 60 Random Glucose 97 (65-105) mg/dL Calcium 8.9 (8.6-10.4) mg/dl Phosphorus 3.0 (2.5-4.5) mg/dL Magnesium 2.2 (1.6-2.3) mg/dL Total Bilirubin 0.9 (0.2-1.3) mg/dL AST 25 (14-36) U/L ALT 39 (9-52) U/L Alkaline Phosphatase 58 (38-126) U/L Total Protein 6.5 (6.3-8.3) g/dL Albumin 3.5 (3.5-5.0) g/dL Globulin 3.1 (2.2-3.9) gm/dL Albumin/Globulin Ratio 1.1 (1.0-2.1) 03/22/17 03/21/17 Range/Units 05:28 16:07 WBC (4.8-10.8) K/uL RBC (3.80-5.20) Mil/uL Hgb (11.0-16.0) g/dL Hct (34.0-47.0) % MCV (81.0-99.0) fL MCH (27.0-31.0) pg MCHC (33.0-37.0) g/dL RDW (11.5-14.5) % Plt Count (130-400) K/uL MPV (7.2-11.7) fL Neut % (Auto) (50.0-75.0) % Lymph % (Auto) (20.0-40.0) % Luce % (Auto) (0.0-10.0) % Eos % (Auto) (0.0-4.0) % Baso % (Auto) (0.0-2.0) % Neut # (1.8-7.0) K/uL Lymph # (1.0-4.3) K/uL Luce # (0.0-0.8) K/uL Eos # (0.0-0.7) K/uL Baso # (0.0-0.2) K/uL Puncture Site Rr pCO2 40 (35-45) mm/Hg pO2 85 (80-100) mm/Hg HCO3 28.2 H (21-28) mmol/L ABG pH 7.46 H (7.35-7.45) ABG Total CO2 29.6 H (22-28) mmol/L ABG O2 Saturation 97.3 (95-98) % ABG Base Excess 4.2 H (-2.0-3.0) mmol/L ABG Hemoglobin 13.0 (11.7-17.4) g/dL ABG Carboxyhemoglobin 0.8 (0.5-1.5) % POC ABG HHb (Measured) 2.7 (0.0-5.0) % ABG Methemoglobin 0.8 (0.0-3.0) % Santiago Test Pos A-a O2 Difference 364.0 mm/Hg Respiratory Index 4.3 Hgb O2 Saturation 95.7 (95.0-98.0) % Vent Mode Prvc Mechanical Rate 12 FiO2 70.0 % Tidal Volume 500 PEEP 5 Pressure Support Sodium 145 (132-148) mmol/L Potassium 3.4 L (3.6-5.2) mmol/L Chloride 106 (98-107) mmol/L Carbon Dioxide 26 (22-30) mmol/L Anion Gap 16 (10-20) BUN 16 (7-17) mg/dL Creatinine 0.5 L (0.7-1.2) MG/DL Est GFR ( Amer) > 60 Est GFR (Non-Af Amer) > 60 Random Glucose 97 (65-105) mg/dL Calcium 8.4 L (8.6-10.4) mg/dl Phosphorus (2.5-4.5) mg/dL Magnesium (1.6-2.3) mg/dL Total Bilirubin (0.2-1.3) mg/dL AST (14-36) U/L ALT (9-52) U/L Alkaline Phosphatase (38-126) U/L Total Protein (6.3-8.3) g/dL Albumin (3.5-5.0) g/dL Globulin (2.2-3.9) gm/dL Albumin/Globulin Ratio (1.0-2.1) Laboratory Results - last 24 hr 03/21/17 03/22/17 03/22/17 16:07 05:28 06:29 WBC RBC Hgb Hct MCV MCH MCHC RDW Plt Count MPV Neut % (Auto) Lymph % (Auto) Luce % (Auto) Eos % (Auto) Baso % (Auto) Neut # Lymph # Luce # Eos # Baso # Puncture Site Rr pCO2 40 pO2 85 HCO3 28.2 H ABG pH 7.46 H ABG Total CO2 29.6 H ABG O2 Saturation 97.3 ABG Base Excess 4.2 H ABG Hemoglobin 13.0 ABG Carboxyhemoglobin 0.8 POC ABG HHb (Measured) 2.7 ABG Methemoglobin 0.8 Santiago Test Pos A-a O2 Difference 364.0 Respiratory Index 4.3 Hgb O2 Saturation 95.7 Vent Mode Prvc Mechanical Rate 12 FiO2 70.0 Tidal Volume 500 PEEP 5 Pressure Support Sodium 145 143 Potassium 3.4 L 3.1 L Chloride 106 102 Carbon Dioxide 26 29 Anion Gap 16 15 BUN 16 20 H Creatinine 0.5 L 0.6 L Est GFR ( Amer) > 60 > 60 Est GFR (Non-Af Amer) > 60 > 60 Random Glucose 97 97 Calcium 8.4 L 8.9 Phosphorus 3.0 Magnesium 2.2 Total Bilirubin 0.9 AST 25 ALT 39 Alkaline Phosphatase 58 Total Protein 6.5 Albumin 3.5 Globulin 3.1 Albumin/Globulin Ratio 1.1 03/22/17 03/22/17 06:31 11:14 WBC 11.3 H RBC 4.15 Hgb 12.7 Hct 38.7 MCV 93.3 MCH 30.6 MCHC 32.8 L RDW 13.4 Plt Count 194 MPV 10.2 Neut % (Auto) 70.5 Lymph % (Auto) 21.8 Luce % (Auto) 6.5 Eos % (Auto) 0.7 Baso % (Auto) 0.5 Neut # 8.0 H Lymph # 2.5 Luce # 0.7 Eos # 0.1 Baso # 0.1 Puncture Site Rra pCO2 31 L pO2 141 H HCO3 26.7 ABG pH 7.51 H ABG Total CO2 25.7 ABG O2 Saturation 98.4 H ABG Base Excess 2.3 ABG Hemoglobin 13.4 ABG Carboxyhemoglobin 0.6 POC ABG HHb (Measured) 1.6 ABG Methemoglobin 0.7 Santiago Test Pos A-a O2 Difference 319.0 Respiratory Index 2.3 Hgb O2 Saturation 97.0 Vent Mode Cpap Mechanical Rate FiO2 70.0 Tidal Volume PEEP 5 Pressure Support 10 Sodium Potassium Chloride Carbon Dioxide Anion Gap BUN Creatinine Est GFR ( Amer) Est GFR (Non-Af Amer) Random Glucose Calcium Phosphorus Magnesium Total Bilirubin AST ALT Alkaline Phosphatase Total Protein Albumin Globulin Albumin/Globulin Ratio Review of Systems - Review of Systems Systems not reviewed;Unavailable: Intubated Critical Care Progress Note - Vent Settings FIO2:: 50 PEEP:: 5 PRESSURE SUPPORT:: 15 Assessment/Plan (1) Acute respiratory failure with hypoxia Assessment and plan: 61 year old female patient with medical history of hypertension, presents to the ED via EMS for hypotension and weakness. Patient's history is obtained by daughter, Aliza. The patient called daughter, who works at [employer], around 5:30am and reported feeling like her blood pressure was low and she couldn't get out of bed. EMS took patient to the ED, where she became short of breath. Patient told EMS that she has not been taking her blood pressure medication for months, but as per her (Michael), patient takes her medication everyday. In the ED, patient's O2 saturation was low (79-90s) and patient was intubated. Patient was admitted to the ICU for respiratory distress and hypoxia. Review of systems not obtained due to sedation and intubation. Neuro: discontinued sedation Pulm: Respiratory distress, hypoxia - Intubated--> CPAP trial 03/22/17 CPAP 5, PS 15 - Likely secondary to pleural effusions and pneumonia - Continue Lasix BID - Contine Vancomycin and Cefepime IV - CXR: small right>left pleural effusions associated consolidations. mild pulmonary venous congestion. cardiomegaly - Chest CT: showed no pulmonary embolism; bilateral pleural effusions, R>L CV: hypotensive - Hx of HTN- hold antihypertensives - Discontinued pressors - EKG: PVCs, tachycardic, 165bpm - Echo: EF 31%, severe cardiomegaly, mild MR, severely dilated LA. - Stock Counter consulted- Dr. Kelley, help appreciated - Continue anticoagulation for Afib with RVR - Continue Lasix BID for fluid overload secondary to CHF Endo: no acute issues GI: no acute issues : no acute issues Heme: no acute issues - Monitor H/H Renal: - hypokalemia (3.1): gave KCl 40mg IV ID: leukocytosis, likely secondary to pneumonia - Continue Vancoymcin and Cefepime - UA: 2+ protein, blood, 1+ ketones, Trace leukocyte esterase, WBC 8, RBC 6892 - Blood cx: no growth x 48hrs - Urine cx: no growth - Sputum/trach cx: normal oral stephani Prophylaxis: - DVT: Lovenox, SCDs - GI: Pepcid Current Visit: Yes Status: Acute (2) Hypotension Current Visit: Yes Status: Acute <Latef,Scotty M - Last Filed: 03/22/17 18:29> CCU Objective - Vital Signs / Intake & Output Vital Signs (Last 4 hours): Vital Signs Pulse Resp BP Pulse Ox 03/22/17 15:34 109 H 17 125/98 H 99 03/22/17 15:04 116 H 14 136/92 H 99 03/22/17 14:54 104 H 19 126/83 100 Intake and Output (Last 8hrs): Intake & Output 03/22/17 03/22/17 03/22/17 06:59 14:59 22:59 Intake Total 76.0 613.0 Output Total 920 925 125 Balance -844.0 -312.0 -125 Intake: IV 0 100 Intake, IV Amount 76.0 513.0 Left Forearm 250 Right Medial Port 200 Right Proximal Port 76.0 63.0 Femoral Oral 0 Tube Feeding 0 Output: Urine 920 925 125 Urethral (Leon) 920 925 125 Other: # Bowel Movements 0 - Medications Active Medications: Active Medications Generic Name Dose Route Start Last Admin Trade Name Tusharq PRN Reason Stop Dose Admin Enoxaparin Sodium 40 mg 03/22/17 10:00 03/22/17 10:21 Lovenox SC 40 mg DAILY ZUNILDA Administration Famotidine 20 mg 03/20/17 10:00 03/22/17 10:21 Pepcid IVP 20 mg DAILY ZUNILDA Administration Furosemide 40 mg 03/22/17 09:30 03/22/17 10:20 Lasix IVP 40 mg Q24H ZUNILDA Administration Cefepime HCl 1 gm/ Dextrose 50 mls @ 100 mls/hr 03/19/17 13:00 03/22/17 12:05 IVPB 100 mls/hr Q12H ZUNILDA Administration Vancomycin HCl 1 gm/ Sodium 250 mls @ 166.7 mls/hr 03/19/17 14:00 03/22/17 13 :31 Chloride IVPB 166.7 mls/hr Q24H ZUNILDA Administration Potassium Chloride 40 meq 03/21/17 10:00 03/22/17 10:23 Potassium Chloride Oral Soln PO 40 meq DAILY ZUNILDA Administration Potassium Chloride 20 meq 03/22/17 10:00 03/22/17 14:52 K-Dur 20 Meq Er Tab PO Not Given DAILY ZUNILDA - Patient Studies Lab Studies: Microbiology Studies 03/19/17 12:50 Gram Stain - Final Trachasp Sputum Culture - Final NORMAL ORAL STEPHANI Lab Studies 03/22/17 03/22/17 03/22/17 Range/Units 11:14 06:31 06:29 WBC 11.3 H (4.8-10.8) K/uL RBC 4.15 (3.80-5.20) Mil/uL Hgb 12.7 (11.0-16.0) g/dL Hct 38.7 (34.0-47.0) % MCV 93.3 (81.0-99.0) fL MCH 30.6 (27.0-31.0) pg MCHC 32.8 L (33.0-37.0) g/dL RDW 13.4 (11.5-14.5) % Plt Count 194 (130-400) K/uL MPV 10.2 (7.2-11.7) fL Neut % (Auto) 70.5 (50.0-75.0) % Lymph % (Auto) 21.8 (20.0-40.0) % Luce % (Auto) 6.5 (0.0-10.0) % Eos % (Auto) 0.7 (0.0-4.0) % Baso % (Auto) 0.5 (0.0-2.0) % Neut # 8.0 H (1.8-7.0) K/uL Lymph # 2.5 (1.0-4.3) K/uL Luce # 0.7 (0.0-0.8) K/uL Eos # 0.1 (0.0-0.7) K/uL Baso # 0.1 (0.0-0.2) K/uL Puncture Site Rra pCO2 31 L (35-45) mm/Hg pO2 141 H (80-100) mm/Hg HCO3 26.7 (21-28) mmol/L ABG pH 7.51 H (7.35-7.45) ABG Total CO2 25.7 (22-28) mmol/L ABG O2 Saturation 98.4 H (95-98) % ABG Base Excess 2.3 (-2.0-3.0) mmol/L ABG Hemoglobin 13.4 (11.7-17.4) g/dL ABG Carboxyhemoglobin 0.6 (0.5-1.5) % POC ABG HHb (Measured) 1.6 (0.0-5.0) % ABG Methemoglobin 0.7 (0.0-3.0) % Santiago Test Pos A-a O2 Difference 319.0 mm/Hg Respiratory Index 2.3 Hgb O2 Saturation 97.0 (95.0-98.0) % Vent Mode Cpap Mechanical Rate FiO2 70.0 % Tidal Volume PEEP 5 Pressure Support 10 Sodium 143 (132-148) mmol/L Potassium 3.1 L (3.6-5.2) mmol/L Chloride 102 (98-107) mmol/L Carbon Dioxide 29 (22-30) mmol/L Anion Gap 15 (10-20) BUN 20 H (7-17) mg/dL Creatinine 0.6 L (0.7-1.2) MG/DL Est GFR ( Amer) > 60 Est GFR (Non-Af Amer) > 60 Random Glucose 97 (65-105) mg/dL Calcium 8.9 (8.6-10.4) mg/dl Phosphorus 3.0 (2.5-4.5) mg/dL Magnesium 2.2 (1.6-2.3) mg/dL Total Bilirubin 0.9 (0.2-1.3) mg/dL AST 25 (14-36) U/L ALT 39 (9-52) U/L Alkaline Phosphatase 58 (38-126) U/L Total Protein 6.5 (6.3-8.3) g/dL Albumin 3.5 (3.5-5.0) g/dL Globulin 3.1 (2.2-3.9) gm/dL Albumin/Globulin Ratio 1.1 (1.0-2.1) 03/22/17 Range/Units 05:28 WBC (4.8-10.8) K/uL RBC (3.80-5.20) Mil/uL Hgb (11.0-16.0) g/dL Hct (34.0-47.0) % MCV (81.0-99.0) fL MCH (27.0-31.0) pg MCHC (33.0-37.0) g/dL RDW (11.5-14.5) % Plt Count (130-400) K/uL MPV (7.2-11.7) fL Neut % (Auto) (50.0-75.0) % Lymph % (Auto) (20.0-40.0) % Luce % (Auto) (0.0-10.0) % Eos % (Auto) (0.0-4.0) % Baso % (Auto) (0.0-2.0) % Neut # (1.8-7.0) K/uL Lymph # (1.0-4.3) K/uL Luce # (0.0-0.8) K/uL Eos # (0.0-0.7) K/uL Baso # (0.0-0.2) K/uL Puncture Site Rr pCO2 40 (35-45) mm/Hg pO2 85 (80-100) mm/Hg HCO3 28.2 H (21-28) mmol/L ABG pH 7.46 H (7.35-7.45) ABG Total CO2 29.6 H (22-28) mmol/L ABG O2 Saturation 97.3 (95-98) % ABG Base Excess 4.2 H (-2.0-3.0) mmol/L ABG Hemoglobin 13.0 (11.7-17.4) g/dL ABG Carboxyhemoglobin 0.8 (0.5-1.5) % POC ABG HHb (Measured) 2.7 (0.0-5.0) % ABG Methemoglobin 0.8 (0.0-3.0) % Santiago Test Pos A-a O2 Difference 364.0 mm/Hg Respiratory Index 4.3 Hgb O2 Saturation 95.7 (95.0-98.0) % Vent Mode Prvc Mechanical Rate 12 FiO2 70.0 % Tidal Volume 500 PEEP 5 Pressure Support Sodium (132-148) mmol/L Potassium (3.6-5.2) mmol/L Chloride (98-107) mmol/L Carbon Dioxide (22-30) mmol/L Anion Gap (10-20) BUN (7-17) mg/dL Creatinine (0.7-1.2) MG/DL Est GFR ( Amer) Est GFR (Non-Af Amer) Random Glucose (65-105) mg/dL Calcium (8.6-10.4) mg/dl Phosphorus (2.5-4.5) mg/dL Magnesium (1.6-2.3) mg/dL Total Bilirubin (0.2-1.3) mg/dL AST (14-36) U/L ALT (9-52) U/L Alkaline Phosphatase (38-126) U/L Total Protein (6.3-8.3) g/dL Albumin (3.5-5.0) g/dL Globulin (2.2-3.9) gm/dL Albumin/Globulin Ratio (1.0-2.1) Laboratory Results - last 24 hr 03/22/17 03/22/17 03/22/17 05:28 06:29 06:31 WBC 11.3 H RBC 4.15 Hgb 12.7 Hct 38.7 MCV 93.3 MCH 30.6 MCHC 32.8 L RDW 13.4 Plt Count 194 MPV 10.2 Neut % (Auto) 70.5 Lymph % (Auto) 21.8 Luce % (Auto) 6.5 Eos % (Auto) 0.7 Baso % (Auto) 0.5 Neut # 8.0 H Lymph # 2.5 Luce # 0.7 Eos # 0.1 Baso # 0.1 Puncture Site Rr pCO2 40 pO2 85 HCO3 28.2 H ABG pH 7.46 H ABG Total CO2 29.6 H ABG O2 Saturation 97.3 ABG Base Excess 4.2 H ABG Hemoglobin 13.0 ABG Carboxyhemoglobin 0.8 POC ABG HHb (Measured) 2.7 ABG Methemoglobin 0.8 Santiago Test Pos A-a O2 Difference 364.0 Respiratory Index 4.3 Hgb O2 Saturation 95.7 Vent Mode Prvc Mechanical Rate 12 FiO2 70.0 Tidal Volume 500 PEEP 5 Pressure Support Sodium 143 Potassium 3.1 L Chloride 102 Carbon Dioxide 29 Anion Gap 15 BUN 20 H Creatinine 0.6 L Est GFR ( Amer) > 60 Est GFR (Non-Af Amer) > 60 Random Glucose 97 Calcium 8.9 Phosphorus 3.0 Magnesium 2.2 Total Bilirubin 0.9 AST 25 ALT 39 Alkaline Phosphatase 58 Total Protein 6.5 Albumin 3.5 Globulin 3.1 Albumin/Globulin Ratio 1.1 03/22/17 11:14 WBC RBC Hgb Hct MCV MCH MCHC RDW Plt Count MPV Neut % (Auto) Lymph % (Auto) Luce % (Auto) Eos % (Auto) Baso % (Auto) Neut # Lymph # Luce # Eos # Baso # Puncture Site Rra pCO2 31 L pO2 141 H HCO3 26.7 ABG pH 7.51 H ABG Total CO2 25.7 ABG O2 Saturation 98.4 H ABG Base Excess 2.3 ABG Hemoglobin 13.4 ABG Carboxyhemoglobin 0.6 POC ABG HHb (Measured) 1.6 ABG Methemoglobin 0.7 Santiago Test Pos A-a O2 Difference 319.0 Respiratory Index 2.3 Hgb O2 Saturation 97.0 Vent Mode Cpap Mechanical Rate FiO2 70.0 Tidal Volume PEEP 5 Pressure Support 10 Sodium Potassium Chloride Carbon Dioxide Anion Gap BUN Creatinine Est GFR ( Amer) Est GFR (Non-Af Amer) Random Glucose Calcium Phosphorus Magnesium Total Bilirubin AST ALT Alkaline Phosphatase Total Protein Albumin Globulin Albumin/Globulin Ratio Attending/Attestation - Attestation I have personally seen and examined this patient.: Yes I have fully participated in the care of the patient.: Yes I have reviewed all pertinent clinical information: Yes Notes (Text): 03/22/17 18:24 Today: Wednesday, March 22, 2017 The patient was Seen/interviewed and examined by me at the bedside during ICU round, Medical records reviewed and Management issues were discussed and formulated with the house staff. Orally intubated and mechanically vented I have reviewed all the relevant clinical, laboratory, hemodynamic, radiographic data and medications Pain issues, skin care, head of the bed elevation, glycemic control were addressed. I concur with resident's assessment and plan of care as transcribed in Dr. Mcknight note, Patient with acute hypoxemic respiratory failure, Chest x-ray persistent bilateral pleural effusion and CHF All sedation discontinues Now is awake and responsive and was place on CPAP for vent weaning and possible extubation today On Lovenox 95 mg SQ Q12H for A fib with RVR Continue all current medications, reviewed Antibiotics Diuresis Continue with NGT feeding Total critical care time 52 minute Full code
--- NOTE | 2017-03-22 14:36 | RAD ---
HISTORY: intubated COMPARISON: Comparison made with prior study 03/21/2017 FINDINGS: LUNGS: In situ ETT, tip of which lies approximately 4.8 cm above korey. NGT is present, tip of which has not been included on this film though distal aspect does lie well below EG junction. Mild central pulmonary vascular congestive changes with bilateral lower lobe alveolar-type infiltrates and bilateral effusions left larger than right PLEURA: No significant pleural effusion identified, no pneumothorax apparent. CARDIOVASCULAR: Marked cardiomegaly OSSEOUS STRUCTURES: No significant abnormalities. VISUALIZED UPPER ABDOMEN: Normal. OTHER FINDINGS: None. IMPRESSION: ETT and NGT as above. Pulmonary vascular congestion with bilateral lower lobe alveolar-type infiltrates and bilateral effusions left larger than right. Marked cardiomegaly
[2017-03-22] MEDS: Potassium Chloride 20 mEq ER Tab PO SCH (14:52)
--- NOTE | 2017-03-22 17:59 | CP.PCM.PN ---
Subjective - Date & Time of Evaluation Date of Evaluation: 03/22/17 Time of Evaluation: 17:59 - Subjective Subjective: Overnight noted to be in atrial fibrillation Started on Lovenox awake , responding to commands with ETT tube Objective - Vital Signs/Intake and Output Vital Signs (last 24 hours): Temp Pulse Resp BP Pulse Ox 98.5 F 109 H 17 125/98 H 99 03/22/17 12:00 03/22/17 15:34 03/22/17 15:34 03/22/17 15:34 03/22/17 15:34 Intake and Output: 03/22/17 03/22/17 06:59 18:59 Intake Total 316.0 613.0 Output Total 1850 1050 Balance -1534.0 -437.0 - Medications Medications: Current Medications Enoxaparin Sodium (Lovenox) 40 mg SC DAILY [facility] Last Admin: 03/22/17 10:21 Dose: 40 mg Famotidine (Pepcid) 20 mg IVP DAILY ZUNILDA Last Admin: 03/22/17 10:21 Dose: 20 mg Furosemide (Lasix) 40 mg IVP Q24H ZUNILDA Last Admin: 03/22/17 10:20 Dose: 40 mg Cefepime HCl 1 gm/ Dextrose 50 mls @ 100 mls/hr IVPB Q12H ZUNILDA Last Admin: 03/22/17 12:05 Dose: 100 mls/hr Vancomycin HCl 1 gm/ Sodium (Chloride) 250 mls @ 166.7 mls/hr IVPB Q24H ZUNILDA Last Admin: 03/22/17 13:31 Dose: 166.7 mls/hr Potassium Chloride (Potassium Chloride Oral Soln) 40 meq PO DAILY ZUNILDA Last Admin: 03/22/17 10:23 Dose: 40 meq Potassium Chloride (K-Dur 20 Meq Er Tab) 20 meq PO DAILY ZUNILDA Last Admin: 03/22/17 14:52 Dose: Not Given - Labs Labs: 03/22/17 06:31 03/22/17 06:29 PT 12.5 SECONDS (9.7-12.2) H 03/19/17 06:57 INR 1.1 03/19/17 06:57 APTT 29 SECONDS (21-34) 03/19/17 06:57 - Constitutional Appears: Well, Other - Head Exam Head Exam: ATRAUMATIC, NORMAL INSPECTION, NORMOCEPHALIC - Eye Exam Eye Exam: EOMI, Normal appearance, PERRL Pupil Exam: NORMAL ACCOMODATION, PERRL - ENT Exam ENT Exam: Mucous Membranes Moist, Normal Exam - Neck Exam Neck Exam: Full ROM, Normal Inspection. absent: Lymphadenopathy - Respiratory Exam Respiratory Exam: Clear to Ausculation Bilateral, NORMAL BREATHING PATTERN - Cardiovascular Exam Cardiovascular Exam: Irregular Rhythm, RRR, +S1, +S2, Murmur - GI/Abdominal Exam GI & Abdominal Exam: Soft, Normal Bowel Sounds. absent: Tenderness - Exam Bimanual exam: NORMAL BIMANUAL EXAM - Extremities Exam Extremities Exam: Full ROM, Normal Capillary Refill, Normal Inspection. absent : Joint Swelling, Pedal Edema - Back Exam Back Exam: NORMAL INSPECTION - Neurological Exam Neurological Exam: Alert, Awake, CN II-XII Intact, Oriented x3 - Psychiatric Exam Psychiatric exam: Normal Affect, Normal Mood - Skin Skin Exam: Dry, Intact, Normal Color, Warm Assessment and Plan (1) A-fib Assessment & Plan: new onset on lovenox start on metoprolol 25mg po bid Status: Acute (2) CHF (congestive heart failure), NYHA class IV Assessment & Plan: new onset CHF will start on low dose BB metoprolol 25mg po bid monitor BP continue with lasix will need cardiac catheterization once extubated Status: Acute (3) Acute respiratory failure with hypoxia Assessment & Plan: 2' to CHF Status: Acute (4) Hypotension Assessment & Plan: BP stable Status: Acute (5) Pneumonia Status: Acute (6) Pulmonary edema Status: Acute
[2017-03-22] MEDS: Enoxaparin 120 mg Syringe SC SCH (21:34)
[2017-03-23 05:58] LABS: ABG ALLEN TEST POS; ABG MECHANICAL RATE 12; ARTERIAL BLOOD GAS MODE PRVC; ARTERIAL BLOOD HGB O2 SAT 95.6 % (95.0-98.0); ATERIAL BLOOD GAS PEEP 5; CARBOXYHEMOGLOBIN 0.9 % (0.5-1.5); DRAW SITE R; HHB 2.8 % (0.0-5.0); METHEMOGLOBIN 0.7 % (0.0-3.0)
[2017-03-23 06:51] LABS: BASO # 0.1 K/uL (0.0-0.2); BASO % 0.8 % (0.0-2.0); EOS % 0.3 % (0.0-4.0); HEMATOCRIT 39.7 % (34.0-47.0); LYMPH # 1.7 K/uL (1.0-4.3); LYMPH % 16.3 % (20.0-40.0); MEAN CELL VOLUME 93.4 fL (81.0-99.0); MEAN CORPUSCULAR HEMOGLOBIN 30.6 pg (27.0-31.0); MEAN CORPUSCULAR HGB CONC 32.7 g/dL (33.0-37.0); MEAN PLATELET VOLUME 9.7 fL (7.2-11.7); MONO # 0.7 K/uL (0.0-0.8); MONO % 6.8 % (0.0-10.0); NRBC % 0.2 % (0.0-2.0); RED CELL DISTRIBUTION WIDTH 13.4 % (11.5-14.5); WHITE BLOOD COUNT 10.5 K/uL (4.8-10.8)
[2017-03-23 07:16] LABS: ALB/GLOB RATIO 1.1 (1.0-2.1); ALKALINE PHOSPHATASE 53 U/L (38-126); ALT/SGPT 35 U/L (9-52); AST/SGOT 27 U/L (14-36); BILIRUBIN,TOTAL 1.1 mg/dL (0.2-1.3); BLOOD UREA NITROGEN 29 mg/dL (7-17); CALCIUM 9.2 mg/dl (8.6-10.4); CARBON DIOXIDE 28 mmol/L (22-30); CHLORIDE 105 mmol/L (98-107); GFR AFRICAN-AMERICAN > 60; GLUCOSE,RANDOM 106 mg/dL (65-105); MAGNESIUM 2.3 mg/dL (1.6-2.3); PHOSPHOROUS 3.1 mg/dL (2.5-4.5); POTASSIUM 3.8 mmol/L (3.6-5.2); SODIUM 145 mmol/L (132-148); TOTAL PROTEIN 6.6 g/dL (6.3-8.3)
--- NOTE | 2017-03-23 09:39 | CP.PCM.PN ---
Subjective - Date & Time of Evaluation Date of Evaluation: 03/23/17 Time of Evaluation: 09:30 - Subjective Subjective: Patient was seen and examined by me. She was extubated earlier in the morning. She is awake and alert x3, calm, following commands. She says her breathing is much easier now. She reported no chest pain, no shortness of breath, denied palpitations, denied abdominal pain, denied headache denied changes to vision. Has not yet eatened anything She is now on Lovenox, it was found she had atrial fibrillation yesterday. Objective - Vital Signs/Intake and Output Vital Signs (last 24 hours): Temp Pulse Resp BP Pulse Ox 98.1 F 125 H 19 152/89 H 93 L 03/23/17 08:00 03/23/17 09:24 03/23/17 09:24 03/23/17 09:24 03/23/17 09:24 Intake and Output: 03/23/17 03/23/17 06:59 18:59 Intake Total 50 Output Total 385 30 Balance -335 -30 - Medications Medications: Current Medications Enoxaparin Sodium (Lovenox) 95 mg SC Q12 [facility] Last Admin: 03/22/17 21:34 Dose: 95 mg Famotidine (Pepcid) 20 mg IVP DAILY [facility] Last Admin: 03/22/17 10:21 Dose: 20 mg Furosemide (Lasix) 40 mg IVP Q24H [facility] Last Admin: 03/23/17 08:49 Dose: 40 mg Cefepime HCl 1 gm/ Dextrose 50 mls @ 100 mls/hr IVPB Q12H [facility] Last Admin: 03/23/17 01:11 Dose: 100 mls/hr Metoprolol Tartrate (Lopressor) 25 mg PO BID [facility] Potassium Chloride (Potassium Chloride Oral Soln) 40 meq PO DAILY [facility] Last Admin: 03/22/17 10:23 Dose: 40 meq Potassium Chloride (K-Dur 20 Meq Er Tab) 20 meq PO DAILY [facility] Last Admin: 03/22/17 14:52 Dose: Not Given - Labs Labs: 03/23/17 06:44 03/23/17 06:44 PT 12.5 SECONDS (9.7-12.2) H 03/19/17 06:57 INR 1.1 03/19/17 06:57 APTT 29 SECONDS (21-34) 03/19/17 06:57 - Constitutional Appears: Non-toxic, Older Than Stated Age, Chronically Ill - Head Exam Head Exam: NORMAL INSPECTION, NORMOCEPHALIC - Eye Exam Eye Exam: EOMI, Normal appearance - ENT Exam ENT Exam: Mucous Membranes Moist - Respiratory Exam Respiratory Exam: Decreased Breath Sounds - Cardiovascular Exam Cardiovascular Exam: Irregular Rhythm Additional comments: Irregular irregular - GI/Abdominal Exam GI & Abdominal Exam: Soft. absent: Firm, Guarding, Rigid, Tenderness - Neurological Exam Neurological Exam: Alert, Awake, Oriented x3 Neuro motor strength exam: Left Upper Extremity: 5, Right Upper Extremity: 5 - Psychiatric Exam Psychiatric exam: Normal Affect, Normal Mood - Skin Skin Exam: Normal Color, Warm Assessment and Plan - Assessment and Plan (Free Text) Assessment: Assessment and Plan (1) Acute respiratory failure with hypoxia Assessment & Plan: 03/23: Now extubated this morning 03/22: Patient is still intubated at this time. She is awake and alert. Following simple commands. Possibly secondary to pneumonia versus congestive heart failure. Patient is currently intubated. Weaning in progress. (2) CHF (congestive heart failure), NYHA class IV Assessment & Plan: Patient is on Lasix IV twice a day. Metoprolol 25 BID Echo showing low EF, also left atrium is very dilated and the left ventricle dilated. Hypokinesis reported. (3) Atrial fibrillation 03/23: Rate control with metoprolol as well as lovenox SQ BID for anticoagulation. (5) Hypotension Assessment & Plan: Possibly secondary to sepsis. Blood pressure is stable now. (5) Pneumonia Assessment & Plan: 03/23: Currently reporting no coughing, no fever past 24 hrs, cultures remain negative at this time. 03/22: Continue on Vancomycin and Cefepime IV for the time. Currently the cultures blood negative 48hrs and the sputum and urine are negative at this time. WBC is stable at this time. Afebrile. No fevers recorded this morning however yesterday Tmax was 100.0 (6) Pulmonary edema Assessment & Plan: Possibly secondary to CHF. Continue diuresis. Monitor closely with the daily chest x-ray. (7) Prophylactic measure Assessment & Plan: On GI and DVT prophylaxis.
--- NOTE | 2017-03-23 09:39 | RAD ---
HISTORY: intubated COMPARISON: Portable chest 03/22/2017 FINDINGS: LUNGS: Endotracheal tube is unchanged in position with nasogastric tube again identified placed with tip directed into the abdomen but off the inferior margins of the image. Increasing opacities identified in the right base suggesting interval increased infiltrate or atelectasis. Decreased left basilar atelectasis or infiltrate is present. Diminished left pleural effusion is seen with limited right pleural effusion likely unchanged. No pneumothorax bilaterally. PLEURA: As above appear CARDIOVASCULAR: Cardiomegaly appears stable. Pulmonary venous congestion appears diminished OSSEOUS STRUCTURES: No significant abnormalities. VISUALIZED UPPER ABDOMEN: Normal. OTHER FINDINGS: None. IMPRESSION: Diminishing pulmonary venous congestion. Trace left pleural effusion question. Mild right pleural effusion unchanged with increased atelectasis or infiltrate noted right base, diminished at the left base.
--- NOTE | 2017-03-23 09:53 | CP.PCM.PN ---
Subjective - Date & Time of Evaluation Date of Evaluation: 03/23/17 Time of Evaluation: 09:53 - Subjective Subjective: extubated in am feeling fine denies any complaints says that prior to admission she never had any chest pains but has baseline WHITLEY which got progressively worse prior to admission Objective - Vital Signs/Intake and Output Vital Signs (last 24 hours): Temp Pulse Resp BP Pulse Ox 98.1 F 125 H 19 152/89 H 93 L 03/23/17 08:00 03/23/17 09:24 03/23/17 09:24 03/23/17 09:24 03/23/17 09:24 Intake and Output: 03/23/17 03/23/17 06:59 18:59 Intake Total 50 Output Total 385 80 Balance -335 -80 - Medications Medications: Current Medications Enoxaparin Sodium (Lovenox) 95 mg SC Q12 [facility] Last Admin: 03/22/17 21:34 Dose: 95 mg Famotidine (Pepcid) 20 mg IVP DAILY [facility] Last Admin: 03/22/17 10:21 Dose: 20 mg Furosemide (Lasix) 40 mg IVP Q24H [facility] Last Admin: 03/23/17 08:49 Dose: 40 mg Cefepime HCl 1 gm/ Dextrose 50 mls @ 100 mls/hr IVPB Q12H [facility] Last Admin: 03/23/17 01:11 Dose: 100 mls/hr Metoprolol Tartrate (Lopressor) 25 mg PO BID [facility] Potassium Chloride (Potassium Chloride Oral Soln) 40 meq PO DAILY [facility] Last Admin: 03/22/17 10:23 Dose: 40 meq Potassium Chloride (K-Dur 20 Meq Er Tab) 20 meq PO DAILY [facility] Last Admin: 03/22/17 14:52 Dose: Not Given - Labs Labs: 03/23/17 06:44 03/23/17 06:44 PT 12.5 SECONDS (9.7-12.2) H 03/19/17 06:57 INR 1.1 03/19/17 06:57 APTT 29 SECONDS (21-34) 03/19/17 06:57 - Constitutional Appears: Well - Head Exam Head Exam: ATRAUMATIC, NORMAL INSPECTION, NORMOCEPHALIC - Eye Exam Eye Exam: EOMI, Normal appearance, PERRL Pupil Exam: NORMAL ACCOMODATION, PERRL - ENT Exam ENT Exam: Mucous Membranes Moist, Normal Exam - Neck Exam Neck Exam: Full ROM, Normal Inspection. absent: Lymphadenopathy - Respiratory Exam Respiratory Exam: Rales, Rhonchi, NORMAL BREATHING PATTERN - Cardiovascular Exam Cardiovascular Exam: Irregular Rhythm, +S1, +S2, Murmur - GI/Abdominal Exam GI & Abdominal Exam: Soft, Normal Bowel Sounds. absent: Tenderness - Extremities Exam Extremities Exam: Full ROM, Normal Capillary Refill, Normal Inspection. absent : Joint Swelling, Pedal Edema - Back Exam Back Exam: NORMAL INSPECTION - Neurological Exam Neurological Exam: Alert, Awake, CN II-XII Intact, Oriented x3 - Psychiatric Exam Psychiatric exam: Normal Affect, Normal Mood - Skin Skin Exam: Dry, Intact, Normal Color, Warm Assessment and Plan (1) A-fib Assessment & Plan: rate controlled on BB on lovenox Status: Acute (2) CHF (congestive heart failure), NYHA class IV Assessment & Plan: new onset on bb will add acei in am will need ischemic evaluation Status: Acute (3) Acute respiratory failure with hypoxia Status: Acute (4) Hypotension Status: Acute (5) Pneumonia Status: Acute (6) Pulmonary edema Status: Acute
[2017-03-23] MEDS: Enoxaparin 120 mg Syringe SC SCH ×2 (09:58→21:22)
[2017-03-23] MEDS ORDERED: Enoxaparin 40 mg Syringe SC SCH (10:00)
--- NOTE | 2017-03-23 11:11 | CP.CCUPN ---
<Jailene Mcknight - Last Filed: 03/23/17 11:08> CCU Subjective - Physician Review Subjective (Free Text): Patient was seen and examined at bedside in the morning. Patient was awake and following commands. Patient nodded yes and no to questions- denies having chest pain, abdominal pain, leg pain, and headaches. Review of systems is limited because patient is intubated. 03/23/17 11:08 CCU Objective - Vital Signs / Intake & Output Vital Signs (Last 4 hours): Vital Signs Temp Pulse Resp BP Pulse Ox 03/23/17 09:24 125 H 19 152/89 H 93 L 03/23/17 09:00 114 H 15 96 03/23/17 08:52 114 H 16 149/95 H 97 03/23/17 08:49 142/98 H 03/23/17 08:22 114 H 14 142/98 H 99 03/23/17 08:00 98.1 F 113 H 14 90 L 03/23/17 07:52 110 H 17 148/82 99 03/23/17 07:21 111 H 15 143/91 H 93 L Intake and Output (Last 8hrs): Intake & Output 03/22/17 03/23/17 03/23/17 22:59 06:59 14:59 Intake Total 50 Output Total 470 240 80 Balance -470 -190 -80 Weight 199 lb 11.821 oz Intake: Intake, IV Amount 50 Left Forearm 50 Output: Urine 470 240 80 Urethral (Leon) 470 240 80 Other: # Bowel Movements 0 0 0 - Physical Exam Head: Positive for: Atraumatic, Normocephalic Pupils: Positive for: PERRL Extroacular Muscles: Positive for: EOMI Conjunctiva: Positive for: Normal Mouth: Positive for: Moist Mucous Membranes Respiratory/Chest: Positive for: Decreased Breath Sounds, Other (increased secretions). Negative for: Wheezes, Rales, Rhonchi Cardiovascular: Positive for: Normal S1, S2, Irregular Rhythm, Tachycardic Abdomen: Positive for: Normal Bowel Sounds. Negative for: Tenderness, Distention Upper Extremity: Positive for: Normal Inspection. Negative for: Edema Lower Extremity: Positive for: Edema Skin: Positive for: Warm, Dry, Normal Color Psychiatric: Positive for: Alert - Medications Active Medications: Active Medications Generic Name Dose Route Start Last Admin Trade Name Freq PRN Reason Stop Dose Admin Enoxaparin Sodium 95 mg 03/22/17 22:00 03/23/17 09:58 Lovenox SC 95 mg Q12 ZUNILDA Administration Famotidine 20 mg 03/20/17 10:00 03/23/17 09:58 Pepcid IVP 20 mg DAILY ZUNILDA Administration Furosemide 40 mg 03/22/17 09:30 03/23/17 08:49 Lasix IVP 40 mg Q24H ZUNILDA Administration Cefepime HCl 1 gm/ Dextrose 50 mls @ 100 mls/hr 03/19/17 13:00 03/23/17 01:11 IVPB 100 mls/hr Q12H ZUNILDA Administration Metoprolol Tartrate 25 mg 03/23/17 10:00 Lopressor PO BID ZUNILDA Potassium Chloride 40 meq 03/21/17 10:00 03/22/17 10:23 Potassium Chloride Oral Soln PO 40 meq DAILY ZUNILDA Administration Potassium Chloride 20 meq 03/22/17 10:00 03/22/17 14:52 K-Dur 20 Meq Er Tab PO Not Given DAILY ZUNILDA - Patient Studies Lab Studies: Microbiology Studies 03/19/17 12:50 Gram Stain - Final Trachasp Sputum Culture - Final NORMAL ORAL STEPHANI Lab Studies 03/23/17 03/23/17 03/23/17 Range/Units 08:01 06:44 06:44 WBC 10.5 (4.8-10.8) K/uL RBC 4.25 (3.80-5.20) Mil/uL Hgb 13.0 (11.0-16.0) g/dL Hct 39.7 (34.0-47.0) % MCV 93.4 (81.0-99.0) fL MCH 30.6 (27.0-31.0) pg MCHC 32.7 L (33.0-37.0) g/dL RDW 13.4 (11.5-14.5) % Plt Count 218 (130-400) K/uL MPV 9.7 (7.2-11.7) fL Neut % (Auto) 75.8 H (50.0-75.0) % Lymph % (Auto) 16.3 L (20.0-40.0) % Candler % (Auto) 6.8 (0.0-10.0) % Eos % (Auto) 0.3 (0.0-4.0) % Baso % (Auto) 0.8 (0.0-2.0) % Neut # 8.0 H (1.8-7.0) K/uL Lymph # 1.7 (1.0-4.3) K/uL Candler # 0.7 (0.0-0.8) K/uL Eos # 0.0 (0.0-0.7) K/uL Baso # 0.1 (0.0-0.2) K/uL Puncture Site pCO2 (35-45) mm/Hg pO2 (80-100) mm/Hg HCO3 (21-28) mmol/L ABG pH (7.35-7.45) ABG Total CO2 (22-28) mmol/L ABG O2 Saturation (95-98) % ABG Base Excess (-2.0-3.0) mmol/L ABG Hemoglobin (11.7-17.4) g/dL ABG Carboxyhemoglobin (0.5-1.5) % POC ABG HHb (Measured) (0.0-5.0) % ABG Methemoglobin (0.0-3.0) % Santiago Test A-a O2 Difference mm/Hg Respiratory Index Hgb O2 Saturation (95.0-98.0) % Vent Mode Mechanical Rate FiO2 % Tidal Volume PEEP Pressure Support Sodium 145 (132-148) mmol/L Potassium 3.8 (3.6-5.2) mmol/L Chloride 105 (98-107) mmol/L Carbon Dioxide 28 (22-30) mmol/L Anion Gap 16 (10-20) BUN 29 H (7-17) mg/dL Creatinine 0.5 L (0.7-1.2) MG/DL Est GFR ( Amer) > 60 Est GFR (Non-Af Amer) > 60 Random Glucose 106 H (65-105) mg/dL Calcium 9.2 (8.6-10.4) mg/dl Phosphorus 3.1 (2.5-4.5) mg/dL Magnesium 2.3 (1.6-2.3) mg/dL Total Bilirubin 1.1 (0.2-1.3) mg/dL AST 27 (14-36) U/L ALT 35 (9-52) U/L Alkaline Phosphatase 53 (38-126) U/L Total Protein 6.6 (6.3-8.3) g/dL Albumin 3.5 (3.5-5.0) g/dL Globulin 3.1 (2.2-3.9) gm/dL Albumin/Globulin Ratio 1.1 (1.0-2.1) Vancomycin Trough < 5.0 L (5.0-10.0) ug/mL 03/23/17 03/22/17 Range/Units 05:42 11:14 WBC (4.8-10.8) K/uL RBC (3.80-5.20) Mil/uL Hgb (11.0-16.0) g/dL Hct (34.0-47.0) % MCV (81.0-99.0) fL MCH (27.0-31.0) pg MCHC (33.0-37.0) g/dL RDW (11.5-14.5) % Plt Count (130-400) K/uL MPV (7.2-11.7) fL Neut % (Auto) (50.0-75.0) % Lymph % (Auto) (20.0-40.0) % Candler % (Auto) (0.0-10.0) % Eos % (Auto) (0.0-4.0) % Baso % (Auto) (0.0-2.0) % Neut # (1.8-7.0) K/uL Lymph # (1.0-4.3) K/uL Candler # (0.0-0.8) K/uL Eos # (0.0-0.7) K/uL Baso # (0.0-0.2) K/uL Puncture Site R Rra pCO2 41 31 L (35-45) mm/Hg pO2 86 141 H (80-100) mm/Hg HCO3 28.7 H 26.7 (21-28) mmol/L ABG pH 7.46 H 7.51 H (7.35-7.45) ABG Total CO2 30.5 H 25.7 (22-28) mmol/L ABG O2 Saturation 97.2 98.4 H (95-98) % ABG Base Excess 4.9 H 2.3 (-2.0-3.0) mmol/L ABG Hemoglobin 13.3 13.4 (11.7-17.4) g/dL ABG Carboxyhemoglobin 0.9 0.6 (0.5-1.5) % POC ABG HHb (Measured) 2.8 1.6 (0.0-5.0) % ABG Methemoglobin 0.7 0.7 (0.0-3.0) % Santiago Test Pos Pos A-a O2 Difference 219.0 319.0 mm/Hg Respiratory Index 2.5 2.3 Hgb O2 Saturation 95.6 97.0 (95.0-98.0) % Vent Mode Prvc Cpap Mechanical Rate 12 FiO2 50.0 70.0 % Tidal Volume 500 PEEP 5 5 Pressure Support 10 Sodium (132-148) mmol/L Potassium (3.6-5.2) mmol/L Chloride (98-107) mmol/L Carbon Dioxide (22-30) mmol/L Anion Gap (10-20) BUN (7-17) mg/dL Creatinine (0.7-1.2) MG/DL Est GFR ( Amer) Est GFR (Non-Af Amer) Random Glucose (65-105) mg/dL Calcium (8.6-10.4) mg/dl Phosphorus (2.5-4.5) mg/dL Magnesium (1.6-2.3) mg/dL Total Bilirubin (0.2-1.3) mg/dL AST (14-36) U/L ALT (9-52) U/L Alkaline Phosphatase (38-126) U/L Total Protein (6.3-8.3) g/dL Albumin (3.5-5.0) g/dL Globulin (2.2-3.9) gm/dL Albumin/Globulin Ratio (1.0-2.1) Vancomycin Trough (5.0-10.0) ug/mL Laboratory Results - last 24 hr 03/22/17 03/23/17 03/23/17 11:14 05:42 06:44 WBC 10.5 RBC 4.25 Hgb 13.0 Hct 39.7 MCV 93.4 MCH 30.6 MCHC 32.7 L RDW 13.4 Plt Count 218 MPV 9.7 Neut % (Auto) 75.8 H Lymph % (Auto) 16.3 L Candler % (Auto) 6.8 Eos % (Auto) 0.3 Baso % (Auto) 0.8 Neut # 8.0 H Lymph # 1.7 Candler # 0.7 Eos # 0.0 Baso # 0.1 Puncture Site Rra R pCO2 31 L 41 pO2 141 H 86 HCO3 26.7 28.7 H ABG pH 7.51 H 7.46 H ABG Total CO2 25.7 30.5 H ABG O2 Saturation 98.4 H 97.2 ABG Base Excess 2.3 4.9 H ABG Hemoglobin 13.4 13.3 ABG Carboxyhemoglobin 0.6 0.9 POC ABG HHb (Measured) 1.6 2.8 ABG Methemoglobin 0.7 0.7 Santiago Test Pos Pos A-a O2 Difference 319.0 219.0 Respiratory Index 2.3 2.5 Hgb O2 Saturation 97.0 95.6 Vent Mode Cpap Prvc Mechanical Rate 12 FiO2 70.0 50.0 Tidal Volume 500 PEEP 5 5 Pressure Support 10 Sodium Potassium Chloride Carbon Dioxide Anion Gap BUN Creatinine Est GFR ( Amer) Est GFR (Non-Af Amer) Random Glucose Calcium Phosphorus Magnesium Total Bilirubin AST ALT Alkaline Phosphatase Total Protein Albumin Globulin Albumin/Globulin Ratio Vancomycin Trough 03/23/17 03/23/17 06:44 08:01 WBC RBC Hgb Hct MCV MCH MCHC RDW Plt Count MPV Neut % (Auto) Lymph % (Auto) Candler % (Auto) Eos % (Auto) Baso % (Auto) Neut # Lymph # Candler # Eos # Baso # Puncture Site pCO2 pO2 HCO3 ABG pH ABG Total CO2 ABG O2 Saturation ABG Base Excess ABG Hemoglobin ABG Carboxyhemoglobin POC ABG HHb (Measured) ABG Methemoglobin Santiago Test A-a O2 Difference Respiratory Index Hgb O2 Saturation Vent Mode Mechanical Rate FiO2 Tidal Volume PEEP Pressure Support Sodium 145 Potassium 3.8 Chloride 105 Carbon Dioxide 28 Anion Gap 16 BUN 29 H Creatinine 0.5 L Est GFR ( Amer) > 60 Est GFR (Non-Af Amer) > 60 Random Glucose 106 H Calcium 9.2 Phosphorus 3.1 Magnesium 2.3 Total Bilirubin 1.1 AST 27 ALT 35 Alkaline Phosphatase 53 Total Protein 6.6 Albumin 3.5 Globulin 3.1 Albumin/Globulin Ratio 1.1 Vancomycin Trough < 5.0 L Review of Systems - Review of Systems Systems not reviewed;Unavailable: Intubated - Cardiovascular Cardiovascular: absent: Chest Pain - Gastrointestinal Gastrointestinal: absent: Abdominal Pain, Constipation, Diarrhea, Nausea - Neurological Neurological: absent: Headaches Assessment/Plan (1) Acute respiratory failure with hypoxia Assessment and plan: 61 year old female patient with medical history of hypertension, presents to the ED via EMS for hypotension and weakness. Patient's history is obtained by daughter, Aliza. The patient called daughter, who works at [employer], around 5:30am and reported feeling like her blood pressure was low and she couldn't get out of bed. EMS took patient to the ED, where she became short of breath. Patient told EMS that she has not been taking her blood pressure medication for months, but as per her (Michael), patient takes her medication everyday. In the ED, patient's O2 saturation was low (79-90s) and patient was intubated. Patient was admitted to the ICU for respiratory distress and hypoxia. Patient was extubated 03/23/17, on venti mask 50%. Neuro: discontinued sedation Pulm: Respiratory distress, hypoxia - Extubated 03/23/17. On ventimask 50% - Likely secondary to pleural effusions and pneumonia - Continue Lasix daily - Contine Cefepime IV - CXR: small right>left pleural effusions associated consolidations. mild pulmonary venous congestion. cardiomegaly - Chest CT: showed no pulmonary embolism; bilateral pleural effusions, R>L CV: hypotensive - Hx of HTN - Discontinued pressors - EKG: PVCs, tachycardic, 165bpm - Echo: EF 31%, severe cardiomegaly, mild MR, severely dilated LA. - [facility] [employer] consulted- Dr. Kelley, help appreciated - As per Dr. Kelley, continue metoprolol BID, Lovenox 95 SC Q12h - Continue anticoagulation for Afib with RVR - Continue Lasix BID for fluid overload secondary to CHF Endo: no acute issues GI: no acute issues : no acute issues Heme: no acute issues - Monitor H/H Renal: - hypokalemia (3.1): gave KCl ID: leukocytosis, likely secondary to pneumonia - Leukocytosis improving, 10.5 - Continue Cefepime - UA: 2+ protein, blood, 1+ ketones, Trace leukocyte esterase, WBC 8, RBC 6892 - Blood cx: no growth x 3days - Urine cx: no growth - Sputum/trach cx: normal oral stephani Prophylaxis: - DVT: Lovenox, SCDs - GI: Pepcid Current Visit: Yes Status: Acute (2) Hypotension Current Visit: Yes Status: Acute <Sohail Tee - Last Filed: 03/23/17 17:21> CCU Objective - Vital Signs / Intake & Output Vital Signs (Last 4 hours): Vital Signs Pulse Resp BP Pulse Ox 03/23/17 15:00 111 H 16 96 03/23/17 14:52 121 H 21 116/101 H 97 03/23/17 14:21 108 H 16 137/81 96 03/23/17 14:00 120 H 17 90 L 03/23/17 13:51 119 H 16 135/77 97 03/23/17 13:21 101 H 16 130/89 97 Intake and Output (Last 8hrs): Intake & Output 03/23/17 03/23/17 03/23/17 06:59 14:59 22:59 Intake Total 50 50 Output Total 240 1465 15 Balance -190 -1415 -15 Weight 199 lb 11.821 oz 199 lb 11.821 oz Intake: Intake, IV Amount 50 50 Left Forearm 50 50 Output: Urine 240 1465 15 Urethral (Leon) 240 1465 15 Other: # Bowel Movements 0 0 0 - Medications Active Medications: Active Medications Generic Name Dose Route Start Last Admin Trade Name Freq PRN Reason Stop Dose Admin Enoxaparin Sodium 95 mg 03/22/17 22:00 03/23/17 09:58 Lovenox SC 95 mg Q12 ZUNILDA Administration Famotidine 20 mg 03/20/17 10:00 03/23/17 09:58 Pepcid IVP 20 mg DAILY ZUNILDA Administration Furosemide 40 mg 03/22/17 09:30 03/23/17 08:49 Lasix IVP 40 mg Q24H ZUNILDA Administration Cefepime HCl 1 gm/ Dextrose 50 mls @ 100 mls/hr 03/19/17 13:00 03/23/17 12:29 IVPB 100 mls/hr Q12H ZUNILDA Administration Metoprolol Tartrate 25 mg 03/23/17 10:00 03/23/17 12:44 Lopressor PO Not Given BID ZUNILDA Potassium Chloride 20 meq 03/22/17 10:00 03/22/17 14:52 K-Dur 20 Meq Er Tab PO Not Given DAILY ZUNILDA - Patient Studies Lab Studies: Lab Studies 03/23/17 03/23/17 03/23/17 Range/Units 08:01 06:44 06:44 WBC 10.5 (4.8-10.8) K/uL RBC 4.25 (3.80-5.20) Mil/uL Hgb 13.0 (11.0-16.0) g/dL Hct 39.7 (34.0-47.0) % MCV 93.4 (81.0-99.0) fL MCH 30.6 (27.0-31.0) pg MCHC 32.7 L (33.0-37.0) g/dL RDW 13.4 (11.5-14.5) % Plt Count 218 (130-400) K/uL MPV 9.7 (7.2-11.7) fL Neut % (Auto) 75.8 H (50.0-75.0) % Lymph % (Auto) 16.3 L (20.0-40.0) % Candler % (Auto) 6.8 (0.0-10.0) % Eos % (Auto) 0.3 (0.0-4.0) % Baso % (Auto) 0.8 (0.0-2.0) % Neut # 8.0 H (1.8-7.0) K/uL Lymph # 1.7 (1.0-4.3) K/uL Candler # 0.7 (0.0-0.8) K/uL Eos # 0.0 (0.0-0.7) K/uL Baso # 0.1 (0.0-0.2) K/uL Puncture Site pCO2 (35-45) mm/Hg pO2 (80-100) mm/Hg HCO3 (21-28) mmol/L ABG pH (7.35-7.45) ABG Total CO2 (22-28) mmol/L ABG O2 Saturation (95-98) % ABG Base Excess (-2.0-3.0) mmol/L ABG Hemoglobin (11.7-17.4) g/dL ABG Carboxyhemoglobin (0.5-1.5) % POC ABG HHb (Measured) (0.0-5.0) % ABG Methemoglobin (0.0-3.0) % Santiago Test A-a O2 Difference mm/Hg Respiratory Index Hgb O2 Saturation (95.0-98.0) % Vent Mode Mechanical Rate FiO2 % Tidal Volume PEEP Sodium 145 (132-148) mmol/L Potassium 3.8 (3.6-5.2) mmol/L Chloride 105 (98-107) mmol/L Carbon Dioxide 28 (22-30) mmol/L Anion Gap 16 (10-20) BUN 29 H (7-17) mg/dL Creatinine 0.5 L (0.7-1.2) MG/DL Est GFR ( Amer) > 60 Est GFR (Non-Af Amer) > 60 Random Glucose 106 H (65-105) mg/dL Calcium 9.2 (8.6-10.4) mg/dl Phosphorus 3.1 (2.5-4.5) mg/dL Magnesium 2.3 (1.6-2.3) mg/dL Total Bilirubin 1.1 (0.2-1.3) mg/dL AST 27 (14-36) U/L ALT 35 (9-52) U/L Alkaline Phosphatase 53 (38-126) U/L Total Protein 6.6 (6.3-8.3) g/dL Albumin 3.5 (3.5-5.0) g/dL Globulin 3.1 (2.2-3.9) gm/dL Albumin/Globulin Ratio 1.1 (1.0-2.1) Vancomycin Trough < 5.0 L (5.0-10.0) ug/mL 03/23/17 Range/Units 05:42 WBC (4.8-10.8) K/uL RBC (3.80-5.20) Mil/uL Hgb (11.0-16.0) g/dL Hct (34.0-47.0) % MCV (81.0-99.0) fL MCH (27.0-31.0) pg MCHC (33.0-37.0) g/dL RDW (11.5-14.5) % Plt Count (130-400) K/uL MPV (7.2-11.7) fL Neut % (Auto) (50.0-75.0) % Lymph % (Auto) (20.0-40.0) % Candler % (Auto) (0.0-10.0) % Eos % (Auto) (0.0-4.0) % Baso % (Auto) (0.0-2.0) % Neut # (1.8-7.0) K/uL Lymph # (1.0-4.3) K/uL Candler # (0.0-0.8) K/uL Eos # (0.0-0.7) K/uL Baso # (0.0-0.2) K/uL Puncture Site R pCO2 41 (35-45) mm/Hg pO2 86 (80-100) mm/Hg HCO3 28.7 H (21-28) mmol/L ABG pH 7.46 H (7.35-7.45) ABG Total CO2 30.5 H (22-28) mmol/L ABG O2 Saturation 97.2 (95-98) % ABG Base Excess 4.9 H (-2.0-3.0) mmol/L ABG Hemoglobin 13.3 (11.7-17.4) g/dL ABG Carboxyhemoglobin 0.9 (0.5-1.5) % POC ABG HHb (Measured) 2.8 (0.0-5.0) % ABG Methemoglobin 0.7 (0.0-3.0) % Santiago Test Pos A-a O2 Difference 219.0 mm/Hg Respiratory Index 2.5 Hgb O2 Saturation 95.6 (95.0-98.0) % Vent Mode Prvc Mechanical Rate 12 FiO2 50.0 % Tidal Volume 500 PEEP 5 Sodium (132-148) mmol/L Potassium (3.6-5.2) mmol/L Chloride (98-107) mmol/L Carbon Dioxide (22-30) mmol/L Anion Gap (10-20) BUN (7-17) mg/dL Creatinine (0.7-1.2) MG/DL Est GFR ( Amer) Est GFR (Non-Af Amer) Random Glucose (65-105) mg/dL Calcium (8.6-10.4) mg/dl Phosphorus (2.5-4.5) mg/dL Magnesium (1.6-2.3) mg/dL Total Bilirubin (0.2-1.3) mg/dL AST (14-36) U/L ALT (9-52) U/L Alkaline Phosphatase (38-126) U/L Total Protein (6.3-8.3) g/dL Albumin (3.5-5.0) g/dL Globulin (2.2-3.9) gm/dL Albumin/Globulin Ratio (1.0-2.1) Vancomycin Trough (5.0-10.0) ug/mL Laboratory Results - last 24 hr 03/23/17 03/23/17 03/23/17 05:42 06:44 06:44 WBC 10.5 RBC 4.25 Hgb 13.0 Hct 39.7 MCV 93.4 MCH 30.6 MCHC 32.7 L RDW 13.4 Plt Count 218 MPV 9.7 Neut % (Auto) 75.8 H Lymph % (Auto) 16.3 L Candler % (Auto) 6.8 Eos % (Auto) 0.3 Baso % (Auto) 0.8 Neut # 8.0 H Lymph # 1.7 Candler # 0.7 Eos # 0.0 Baso # 0.1 Puncture Site R pCO2 41 pO2 86 HCO3 28.7 H ABG pH 7.46 H ABG Total CO2 30.5 H ABG O2 Saturation 97.2 ABG Base Excess 4.9 H ABG Hemoglobin 13.3 ABG Carboxyhemoglobin 0.9 POC ABG HHb (Measured) 2.8 ABG Methemoglobin 0.7 Santiago Test Pos A-a O2 Difference 219.0 Respiratory Index 2.5 Hgb O2 Saturation 95.6 Vent Mode Prvc Mechanical Rate 12 FiO2 50.0 Tidal Volume 500 PEEP 5 Sodium 145 Potassium 3.8 Chloride 105 Carbon Dioxide 28 Anion Gap 16 BUN 29 H Creatinine 0.5 L Est GFR ( Amer) > 60 Est GFR (Non-Af Amer) > 60 Random Glucose 106 H Calcium 9.2 Phosphorus 3.1 Magnesium 2.3 Total Bilirubin 1.1 AST 27 ALT 35 Alkaline Phosphatase 53 Total Protein 6.6 Albumin 3.5 Globulin 3.1 Albumin/Globulin Ratio 1.1 Vancomycin Trough 03/23/17 08:01 WBC RBC Hgb Hct MCV MCH MCHC RDW Plt Count MPV Neut % (Auto) Lymph % (Auto) Candler % (Auto) Eos % (Auto) Baso % (Auto) Neut # Lymph # Candler # Eos # Baso # Puncture Site pCO2 pO2 HCO3 ABG pH ABG Total CO2 ABG O2 Saturation ABG Base Excess ABG Hemoglobin ABG Carboxyhemoglobin POC ABG HHb (Measured) ABG Methemoglobin Santiago Test A-a O2 Difference Respiratory Index Hgb O2 Saturation Vent Mode Mechanical Rate FiO2 Tidal Volume PEEP Sodium Potassium Chloride Carbon Dioxide Anion Gap BUN Creatinine Est GFR ( Amer) Est GFR (Non-Af Amer) Random Glucose Calcium Phosphorus Magnesium Total Bilirubin AST ALT Alkaline Phosphatase Total Protein Albumin Globulin Albumin/Globulin Ratio Vancomycin Trough < 5.0 L Critical Care Progress Note - Nutrition Nutrition: Nutrition Category Date Time Status Liquid Diet [DIET] Diets 03/23/17 Dinner Active Assessment/Plan (1) Acute respiratory failure with hypoxia Current Visit: Yes Status: Acute (2) Pneumonia Current Visit: Yes Status: Acute (3) Pulmonary edema Current Visit: Yes Status: Acute Attending/Attestation - Attestation I have personally seen and examined this patient.: Yes I have fully participated in the care of the patient.: Yes I have reviewed all pertinent clinical information: Yes Notes (Text): 03/23/17 17:17 Patient seen and examined in the intensive care unit. Case discussed with house staff in the morning rounds. Patient extubated in the morning after obtaining tried awake responsive in no distress after intubation Continue Lasix Continue anticoagulation for atrial fibrillation Consider to discontinue antibiotics Possible cardiac cath as per cardiology
[2017-03-23] MEDS: Potassium Chloride 20 mEq/15 ml LIQ UD PO SCH (12:45)
[2017-03-23] MEDS: Potassium Chloride 20 mEq ER Tab PO SCH (17:29)
--- NOTE | 2017-03-23 17:51 | CARD ---
APPROVED REPORT EKG Measurement Heart [id number] <Conclusion> Suspect arm lead reversal, interpretation assumes no reversal Atrial fibrillation Nonspecific intraventricular block Anterolateral infarct, age undetermined Abnormal ECG
[2017-03-24 06:27] LABS: ABG ALLEN TEST POS; ARTERIAL BLOOD HGB O2 SAT 95.9 % (95.0-98.0); DRAW SITE R RAD; HHB 2.6 % (0.0-5.0); METHEMOGLOBIN 0.5 % (0.0-3.0)
[2017-03-24 07:08] LABS: BASO # 0.1 K/uL (0.0-0.2); BASO % 0.9 % (0.0-2.0); EOS # 0.3 K/uL (0.0-0.7); EOS % 2.9 % (0.0-4.0); HEMATOCRIT 40.5 % (34.0-47.0); MEAN CORPUSCULAR HEMOGLOBIN 30.3 pg (27.0-31.0); MEAN CORPUSCULAR HGB CONC 32.6 g/dL (33.0-37.0); MONO # 0.8 K/uL (0.0-0.8); MONO % 7.8 % (0.0-10.0); NRBC % 0.1 % (0.0-2.0); RED CELL DISTRIBUTION WIDTH 13.3 % (11.5-14.5); WHITE BLOOD COUNT 10.5 K/uL (4.8-10.8)
[2017-03-24 07:43] LABS: CHLORIDE 102 mmol/L (98-107)
[2017-03-24 07:44] LABS: SODIUM 143 mmol/L (132-148)
[2017-03-24 07:46] LABS: CARBON DIOXIDE 31 mmol/L (22-30); GFR AFRICAN-AMERICAN > 60
[2017-03-24 07:47] LABS: ALKALINE PHOSPHATASE 56 U/L (38-126); ALT/SGPT 46 U/L (9-52); AST/SGOT 40 U/L (14-36); BLOOD UREA NITROGEN 31 mg/dL (7-17); CALCIUM 9.1 mg/dl (8.6-10.4); GLUCOSE,RANDOM 114 mg/dL (65-105); PHOSPHOROUS 3.1 mg/dL (2.5-4.5); TOTAL PROTEIN 6.8 g/dL (6.3-8.3)
[2017-03-24 07:48] LABS: MAGNESIUM 2.1 mg/dL (1.6-2.3)
[2017-03-24] MEDS: Enoxaparin 120 mg Syringe SC SCH ×2 (09:02→22:46)
[2017-03-24] MEDS: Potassium Chloride 20 mEq ER Tab PO SCH (09:04)
[2017-03-24] MEDS ORDERED: Digoxin 500 mcg/2ml (0.5 mg/2ml) Inj IVP ONE (09:40)
--- NOTE | 2017-03-24 11:58 | CP.PCM.PN ---
Subjective - Date & Time of Evaluation Date of Evaluation: 03/24/17 Time of Evaluation: 11:30 - Subjective Subjective: Patient was seen and examined by me. Patient was alert, awake, and not in any acute distress. The patient had family present as well in room and she was ok with this. She reported feeling well, no problem overnight, denied chest pain, denied abdominal pain and denied palpitations. Earlier this morning the patient was noted to be in rapid AFIB with RVR and required medications. By the time I saw patient HR had decreased to 90s and was asymptomatic. Objective - Vital Signs/Intake and Output Vital Signs (last 24 hours): Temp Pulse Resp BP Pulse Ox 97.6 F 118 H 21 110/82 96 03/24/17 07:54 03/24/17 08:00 03/24/17 08:00 03/24/17 09:03 03/24/17 08:00 Intake and Output: 03/24/17 03/24/17 06:59 18:59 Intake Total 300 0 Output Total 500 0 Balance -200 0 - Medications Medications: Current Medications Enoxaparin Sodium (Lovenox) 95 mg SC Q12 [facility] Last Admin: 03/24/17 09:02 Dose: 95 mg Famotidine (Pepcid) 20 mg PO DAILY [facility] Furosemide (Lasix) 40 mg IVP Q24H [facility] Last Admin: 03/24/17 09:03 Dose: 40 mg Cefepime HCl 1 gm/ Dextrose 50 mls @ 100 mls/hr IVPB Q12H [facility] Last Admin: 03/24/17 01:50 Dose: 100 mls/hr Metoprolol Tartrate (Lopressor) 50 mg PO BID [facility] Potassium Chloride (K-Dur 20 Meq Er Tab) 20 meq PO DAILY [facility] Last Admin: 03/24/17 09:04 Dose: 20 meq - Labs Labs: 03/24/17 07:04 03/24/17 07:04 PT 12.5 SECONDS (9.7-12.2) H 03/19/17 06:57 INR 1.1 03/19/17 06:57 APTT 29 SECONDS (21-34) 03/19/17 06:57 Assessment and Plan - Assessment and Plan (Free Text) Assessment: Assessment and Plan (1) Acute respiratory failure with hypoxia Assessment & Plan: 03/24: Doing well, pending going to telemetry now. 03/23: Now extubated this morning 03/22: Patient is still intubated at this time. She is awake and alert. Following simple commands. Possibly secondary to pneumonia versus congestive heart failure. Patient is currently intubated. Weaning in progress. (2) CHF (congestive heart failure), NYHA class IV 03/24: Patient maybe going for stress test Patient is on Lasix IV twice a day. Metoprolol 25 BID Echo showing low EF, also left atrium is very dilated and the left ventricle dilated. Hypokinesis reported. (3) Atrial fibrillation 03/24: There was rapid afib with RVR this morning. Now on digoxin and metoprolol for rate control 03/23: Rate control with metoprolol as well as lovenox SQ BID for anticoagulation. (5) Hypotension Assessment & Plan: Possibly secondary to sepsis. Blood pressure is stable now. (5) Pneumonia Assessment & Plan: 03/24: WBC ok, no fevers. Cultures are remain negatve 03/23: Currently reporting no coughing, no fever past 24 hrs, cultures remain negative at this time. 03/22: Continue on Vancomycin and Cefepime IV for the time. Currently the cultures blood negative 48hrs and the sputum and urine are negative at this time. WBC is stable at this time. Afebrile. No fevers recorded this morning however yesterday Tmax was 100.0 (6) Pulmonary edema Assessment & Plan: 03/24: Breathing better, on lasix, Continue diuresis. Monitor closely with the daily chest x-ray. (7) Prophylactic measure Assessment & Plan: On GI and DVT prophylaxis.
--- NOTE | 2017-03-24 15:48 | CP.PCM.PN ---
Subjective - Date & Time of Evaluation Date of Evaluation: 03/24/17 Time of Evaluation: 15:48 - Subjective Subjective: Episode of afib w/ RVR meds adjusted Objective - Vital Signs/Intake and Output Vital Signs (last 24 hours): Temp Pulse Resp BP Pulse Ox 98.6 F 91 H 22 143/118 H 82 L 03/24/17 11:45 03/24/17 13:12 03/24/17 13:12 03/24/17 13:12 03/24/17 13:12 Intake and Output: 03/24/17 03/24/17 06:59 18:59 Intake Total 300 0 Output Total 500 0 Balance -200 0 - Medications Medications: Current Medications Enoxaparin Sodium (Lovenox) 95 mg SC Q12 [facility] Last Admin: 03/24/17 09:02 Dose: 95 mg Famotidine (Pepcid) 20 mg PO DAILY [facility] Furosemide (Lasix) 40 mg IVP Q24H [facility] Last Admin: 03/24/17 09:03 Dose: 40 mg Cefepime HCl 1 gm/ Dextrose 50 mls @ 100 mls/hr IVPB Q12H [facility] Last Admin: 03/24/17 13:57 Dose: 100 mls/hr Metoprolol Tartrate (Lopressor) 50 mg PO BID [facility] Potassium Chloride (K-Dur 20 Meq Er Tab) 20 meq PO DAILY [facility] Last Admin: 03/24/17 09:04 Dose: 20 meq - Labs Labs: 03/24/17 07:04 03/24/17 07:04 PT 12.5 SECONDS (9.7-12.2) H 03/19/17 06:57 INR 1.1 03/19/17 06:57 APTT 29 SECONDS (21-34) 03/19/17 06:57 - Constitutional Appears: Well - Head Exam Head Exam: ATRAUMATIC, NORMAL INSPECTION, NORMOCEPHALIC - Eye Exam Eye Exam: EOMI, Normal appearance, PERRL Pupil Exam: NORMAL ACCOMODATION, PERRL - ENT Exam ENT Exam: Mucous Membranes Moist, Normal Exam - Neck Exam Neck Exam: Full ROM, Normal Inspection. absent: Lymphadenopathy - Respiratory Exam Respiratory Exam: Rales, NORMAL BREATHING PATTERN - Cardiovascular Exam Cardiovascular Exam: Tachycardia, Irregular Rhythm, +S1, +S2, Murmur - GI/Abdominal Exam GI & Abdominal Exam: Soft, Normal Bowel Sounds. absent: Tenderness - Extremities Exam Extremities Exam: Full ROM, Normal Capillary Refill, Normal Inspection. absent : Joint Swelling, Pedal Edema - Back Exam Back Exam: NORMAL INSPECTION - Neurological Exam Neurological Exam: Alert, Awake, CN II-XII Intact, Oriented x3 - Psychiatric Exam Psychiatric exam: Normal Affect, Normal Mood - Skin Skin Exam: Dry, Intact, Normal Color, Warm Assessment and Plan (1) A-fib Assessment & Plan: with VVR cont BB increase dose of BB as BP tolerates on AC Status: Acute (2) CHF (congestive heart failure), NYHA class IV Assessment & Plan: on bb and low dose acei etiology ? tachycardia mediated vs. ischemic heart disease will need evaluation with cardiac catheterization once HR stable Status: Acute (3) Acute respiratory failure with hypoxia Assessment & Plan: lasix prn Status: Acute (4) Hypotension Status: Acute (5) Pneumonia Status: Acute (6) Pulmonary edema Status: Acute
--- NOTE | 2017-03-25 09:44 | CP.PCM.PN ---
<Ankit Wright - Last Filed: 03/25/17 13:57> Subjective - Date & Time of Evaluation Date of Evaluation: 03/25/17 Time of Evaluation: 07:20 - Subjective Subjective: PGY-[address] Medina Patient seen and examined at bedside. Patient notes that she is doing well and breathing comfortably. Patient denies feeling racing heartbeats or palpitations , despite being in Afib with RVR on telemetry early this morning. Her rate decreased down to the 90s during conversation. Patient denies fever, chills, headache, dizziness, chest pain, SOB, abdominal pain, dysuria. Objective - Vital Signs/Intake and Output Vital Signs (last 24 hours): Temp Pulse Resp BP Pulse Ox 98.1 F 94 H 13 109/56 L 92 L 03/25/17 07:00 03/25/17 06:09 03/25/17 06:09 03/25/17 06:09 03/25/17 05:08 - Medications Medications: Current Medications Diltiazem HCl (Cardizem) 30 mg PO TID [facility] Enoxaparin Sodium (Lovenox) 95 mg SC Q12 [facility] Last Admin: 03/24/17 22:46 Dose: 95 mg Famotidine (Pepcid) 20 mg PO DAILY [facility] Furosemide (Lasix) 40 mg IVP Q24H [facility] Last Admin: 03/24/17 09:03 Dose: 40 mg Cefepime HCl 1 gm/ Dextrose 50 mls @ 100 mls/hr IVPB Q12H [facility] Last Admin: 03/24/17 13:57 Dose: 100 mls/hr Lisinopril (Zestril) 2.5 mg PO DAILY [facility] Metoprolol Tartrate (Lopressor) 50 mg PO BID [facility] Last Admin: 03/24/17 22:46 Dose: 50 mg Potassium Chloride (K-Dur 20 Meq Er Tab) 20 meq PO DAILY [facility] Last Admin: 03/24/17 09:04 Dose: 20 meq - Labs Labs: 03/24/17 07:04 03/24/17 07:04 PT 12.5 SECONDS (9.7-12.2) H 03/19/17 06:57 INR 1.1 03/19/17 06:57 APTT 29 SECONDS (21-34) 03/19/17 06:57 - Constitutional Appears: No Acute Distress - Head Exam Head Exam: ATRAUMATIC, NORMAL INSPECTION, NORMOCEPHALIC - Eye Exam Eye Exam: EOMI, PERRL - ENT Exam ENT Exam: Mucous Membranes Moist - Respiratory Exam Respiratory Exam: Decreased Breath Sounds (on right). absent: Rales, Rhonchi, Wheezes Additional comments: Dullness to percussion on the right - Cardiovascular Exam Cardiovascular Exam: Tachycardia, Irregular Rhythm, +S1, +S2 - GI/Abdominal Exam GI & Abdominal Exam: Soft, Normal Bowel Sounds. absent: Tenderness - Extremities Exam Extremities Exam: absent: Tenderness Additional comments: Bilateral varicose veins on the lower extremities No pitting edema - Neurological Exam Neurological Exam: Alert, Awake, Oriented x3 Assessment and Plan - Assessment and Plan (Free Text) Plan: Acute respiratory failure with hypoxia Intubated on admission and extubated 03/23. ARF possibly secondary to pneumonia versus congestive heart failure. 03/25: Breathing comfortably today CHF (congestive heart failure), NYHA class IV Lasix 40 mg IV daily Metoprolol 50 mg PO BID Lisinopril 2.5 mg PO daily (Did not restart her home dosage due to low blood pressure) Echo showing low EF 31%, left atrium is very dilated. Hypokinesis reported. Atrial fibrillation Lopressor 50 mg PO BID Cardizem 30 mg PO TID Lovenox 90 mg SC Q12 03/25: Held off on Digoxin for now and started Cardizem 30 mg PO TID instead. 03/24: There was rapid afib with RVR this morning. Now on digoxin and metoprolol for rate control Hypotension Possibly secondary to sepsis. Blood pressure is stable now. Pneumonia 03/25: Afebrile. Cultures remain negative. Possibly D/C the Cefepime on 03/24: WBC ok, no fevers. Cultures are remain negatve 03/23: Currently reporting no coughing, no fever past 24 hrs, cultures remain negative at this time. 03/22: Continue on Vancomycin and Cefepime IV for the time. Currently the cultures blood negative 48hrs and the sputum and urine are negative at this time. WBC is stable at this time. Afebrile. No fevers recorded this morning however yesterday Tmax was 100.0 Right side Pulmonary effusion 03/25: Ordered PA/Lat CXR. IR consulted for thoracentesis. They did not think the procedure was warranted as improvement seen on CXR from today. Pulmonary edema 03/25: continues to breathe well. On Lasix 40 mg IV daily Continue diuresis. History of Hypertension See CHF and Afib above. Lopressor, Cardizem, Lisinopril. Prophylactic measure Pepcid 20 mg PO daily Therapeutic Lovenox Please note that prior to hospital admission, the only known PMHx was Hypertension for which she was taking Lisinopril/HCTZ 20/12.5 mg PO daily. Case DW Dr. Carol Wright PGY-1 <Mihir Medina H - Last Filed: 03/25/17 16:27> Objective - Vital Signs/Intake and Output Vital Signs (last 24 hours): Temp Pulse Resp BP Pulse Ox 98.3 F 83 20 95/65 L 95 03/25/17 15:32 03/25/17 15:32 03/25/17 15:32 03/25/17 15:32 03/25/17 15:32 - Medications Medications: Current Medications Diltiazem HCl (Cardizem) 30 mg PO TID [facility] Last Admin: 03/25/17 13:30 Dose: Not Given Enoxaparin Sodium (Lovenox) 90 mg SC Q12 [facility] Last Admin: 03/25/17 11:39 Dose: 90 mg Famotidine (Pepcid) 20 mg PO DAILY [facility] Last Admin: 03/25/17 09:50 Dose: 20 mg Furosemide (Lasix) 40 mg IVP Q24H [facility] Last Admin: 03/25/17 09:53 Dose: 40 mg Cefepime HCl 1 gm/ Dextrose 50 mls @ 100 mls/hr IVPB Q12H [facility] Last Admin: 03/25/17 13:27 Dose: 100 mls/hr Lisinopril (Zestril) 2.5 mg PO DAILY [facility] Last Admin: 03/25/17 10:00 Dose: Not Given Metoprolol Tartrate (Lopressor) 50 mg PO BID [facility] Last Admin: 03/25/17 09:54 Dose: 50 mg Potassium Chloride (K-Dur 20 Meq Er Tab) 20 meq PO DAILY [facility] Last Admin: 03/25/17 09:50 Dose: 20 meq - Labs Labs: 03/25/17 13:56 03/25/17 13:56 PT 12.5 SECONDS (9.7-12.2) H 03/19/17 06:57 INR 1.1 03/19/17 06:57 APTT 29 SECONDS (21-34) 03/19/17 06:57 Attending/Attestation - Attestation I have personally seen and examined this patient.: Yes I have fully participated in the care of the patient.: Yes I have reviewed all pertinent clinical information, including history, physical exam and plan: Yes Notes (Text): Medical Attending: Patient was seen and examined by me. Agree with the above note by the resident. The patient earlier in the morning had a short run of AFIB with RVR however it did not persist and so we did not administer any IV agents such as digoxin or IV cardizem. When we saw her she did not report palpitations. She also denied shortness of breath and chest pain as well. She is already on metoprolol, will add on cardizem 30 mg PO TID as well. For rate control. The patient appeared well when we saw her. Reviewed also the CXRAYs she still seems to have a persistent R side what appears to be pleural effusion as was seen on CT scan of her chest. Considered thoracentis however IR suggested that these findings were too small, so will deffer from now. Continue with diureses. She reports breathing is much better. Currently on lovenox for anticoagulation so will need to oil changer at some point to oral medication. consider stopping abx tommorow - will have to review labs and vitals again thank you Mihir Medina
[2017-03-25] MEDS: Potassium Chloride 20 mEq ER Tab PO SCH (09:50)
--- NOTE | 2017-03-25 10:27 | RAD ---
HISTORY: pleural effusion COMPARISON: 03/23/2017 TECHNIQUE: Chest PA and lateral FINDINGS: LUNGS: Interval clearance most of the prior bibasilar opacities especially that right lung base. PLEURA: Interval decreased right pleural effusion with trace residual persisting. No pneumothorax CARDIOVASCULAR: Cardiomegaly slightly less pronounced appearing. Prior pulmonary venous congestion appears further decreased. OSSEOUS STRUCTURES: Thoracic spondylosis as before VISUALIZED UPPER ABDOMEN: Normal. OTHER FINDINGS: Interval endotracheal and NG tube removals. IMPRESSION: Interval improvement: Improved clearance- bibasilar opacities and diminishing pleural effusions.
[2017-03-25] MEDS ORDERED: Enoxaparin 100 mg Syringe SC SCH ×2 (11:30→11:45)
[2017-03-25] MEDS: Enoxaparin 100 mg Syringe SC SCH ×2 (11:39→21:52)
[2017-03-25 13:59] LABS: BASO # 0.1 K/uL (0.0-0.2); BASO % 0.6 % (0.0-2.0); EOS # 0.2 K/uL (0.0-0.7); EOS % 2.1 % (0.0-4.0); HEMATOCRIT 42.1 % (34.0-47.0); LYMPH # 2.5 K/uL (1.0-4.3); LYMPH % 21.7 % (20.0-40.0); MEAN CELL VOLUME 94.5 fL (81.0-99.0); MEAN CORPUSCULAR HEMOGLOBIN 30.6 pg (27.0-31.0); MEAN CORPUSCULAR HGB CONC 32.4 g/dL (33.0-37.0); MEAN PLATELET VOLUME 8.7 fL (7.2-11.7); MONO # 0.6 K/uL (0.0-0.8); MONO % 5.3 % (0.0-10.0); WHITE BLOOD COUNT 11.7 K/uL (4.8-10.8)
[2017-03-25 14:09] LABS: CHLORIDE 95 mmol/L (98-107)
[2017-03-25 14:10] LABS: POTASSIUM 4.4 mmol/L (3.6-5.2); SODIUM 138 mmol/L (132-148)
[2017-03-25 14:12] LABS: ALKALINE PHOSPHATASE 56 U/L (38-126); AST/SGOT 33 U/L (14-36); BILIRUBIN,TOTAL 0.8 mg/dL (0.2-1.3); BLOOD UREA NITROGEN 24 mg/dL (7-17); CARBON DIOXIDE 33 mmol/L (22-30); GFR AFRICAN-AMERICAN > 60; GLUCOSE,RANDOM 137 mg/dL (65-105); TOTAL PROTEIN 6.9 g/dL (6.3-8.3)
[2017-03-25 14:13] LABS: ALT/SGPT 59 U/L (9-52); CALCIUM 9.2 mg/dl (8.6-10.4); MAGNESIUM 1.7 mg/dL (1.6-2.3); PHOSPHOROUS 3.6 mg/dL (2.5-4.5)
[2017-03-26] MEDS: Potassium Chloride 20 mEq ER Tab PO SCH (09:50)
[2017-03-26] MEDS: Enoxaparin 100 mg Syringe SC SCH ×2 (09:51→21:37)
[2017-03-26] MEDS ORDERED: Digoxin 500 mcg/2ml (0.5 mg/2ml) Inj IVP ONE (10:44)
[2017-03-26 11:20] LABS: BASO % 0.3 % (0.0-2.0); EOS # 0.2 K/uL (0.0-0.7); EOS % 2.4 % (0.0-4.0); HEMATOCRIT 42.6 % (34.0-47.0); LYMPH # 1.8 K/uL (1.0-4.3); MEAN CORPUSCULAR HEMOGLOBIN 30.8 pg (27.0-31.0); MEAN CORPUSCULAR HGB CONC 33.4 g/dL (33.0-37.0); MEAN PLATELET VOLUME 9.5 fL (7.2-11.7); MONO # 0.5 K/uL (0.0-0.8); MONO % 6.2 % (0.0-10.0); RED CELL DISTRIBUTION WIDTH 13.2 % (11.5-14.5); WHITE BLOOD COUNT 8.8 K/uL (4.8-10.8)
[2017-03-26 11:52] LABS: CHLORIDE 96 mmol/L (98-107); POTASSIUM 3.6 mmol/L (3.6-5.2); SODIUM 138 mmol/L (132-148)
[2017-03-26 11:54] LABS: BILIRUBIN,TOTAL 0.8 mg/dL (0.2-1.3); GFR AFRICAN-AMERICAN > 60
[2017-03-26 11:55] LABS: ALB/GLOB RATIO 1.1 (1.0-2.1); ALKALINE PHOSPHATASE 59 U/L (38-126); ALT/SGPT 53 U/L (9-52); AST/SGOT 30 U/L (14-36); BLOOD UREA NITROGEN 21 mg/dL (7-17); CARBON DIOXIDE 32 mmol/L (22-30); GLUCOSE,RANDOM 126 mg/dL (65-105); PHOSPHOROUS 3.4 mg/dL (2.5-4.5); TOTAL PROTEIN 6.9 g/dL (6.3-8.3)
[2017-03-26 11:56] LABS: CALCIUM 9.3 mg/dl (8.6-10.4); MAGNESIUM 1.5 mg/dL (1.6-2.3)
--- NOTE | 2017-03-26 14:29 | CP.PCM.PN ---
<Isaiah Hernandez - Last Filed: 03/26/17 14:26> Subjective - Date & Time of Evaluation Date of Evaluation: 03/26/17 Time of Evaluation: 10:00 - Subjective Subjective: PGY1 Medicine Note for Dr. Medina Patient seen and examined at bedside. Patient is stilling up right in bed watching upon walking into the room. She states she feels well and is not experiencing any palpitations at the moment. Before entering the room, the patient's HR was in 130's on telemetry. Patient is tolerating her diet. Patient denies f/c, n/v, d/c, sob, cp, headache, dizziness, abdominal pain or dysuria. Objective - Vital Signs/Intake and Output Vital Signs (last 24 hours): Temp Pulse Resp BP Pulse Ox 98.3 F 89 19 113/70 96 03/26/17 07:47 03/26/17 12:50 03/26/17 07:47 03/26/17 12:50 03/26/17 07:47 Intake and Output: 03/26/17 03/26/17 06:59 18:59 Intake Total 400 Balance 400 - Medications Medications: Current Medications Digoxin (Lanoxin) 0.25 mg IVP ONCE ONE Stop: 03/27/17 10:45 Enoxaparin Sodium (Lovenox) 90 mg SC Q12 [facility] Last Admin: 03/26/17 09:51 Dose: 90 mg Famotidine (Pepcid) 20 mg PO DAILY [facility] Last Admin: 03/26/17 09:50 Dose: 20 mg Furosemide (Lasix) 40 mg IVP Q24H [facility] Last Admin: 03/26/17 08:53 Dose: 40 mg Cefepime HCl 1 gm/ Dextrose 50 mls @ 100 mls/hr IVPB Q12H [facility] Last Admin: 03/26/17 12:56 Dose: 100 mls/hr Lisinopril (Zestril) 2.5 mg PO DAILY [facility] Last Admin: 03/26/17 09:53 Dose: Not Given Metoprolol Tartrate (Lopressor) 50 mg PO BID [facility] Potassium Chloride (K-Dur 20 Meq Er Tab) 20 meq PO DAILY [facility] Last Admin: 03/26/17 09:50 Dose: 20 meq - Labs Labs: 03/26/17 11:07 03/26/17 11:07 PT 12.5 SECONDS (9.7-12.2) H 03/19/17 06:57 INR 1.1 03/19/17 06:57 APTT 29 SECONDS (21-34) 03/19/17 06:57 - Constitutional Appears: No Acute Distress - Head Exam Head Exam: ATRAUMATIC, NORMOCEPHALIC - Eye Exam Eye Exam: EOMI, Normal appearance - ENT Exam ENT Exam: Mucous Membranes Moist - Respiratory Exam Respiratory Exam: Decreased Breath Sounds (on right side), NORMAL BREATHING PATTERN. absent: Rales, Rhonchi, Wheezes - Cardiovascular Exam Cardiovascular Exam: Tachycardia, Irregular Rhythm, +S1, +S2 - GI/Abdominal Exam GI & Abdominal Exam: Soft, Normal Bowel Sounds. absent: Distended, Guarding, Tenderness - Extremities Exam Extremities Exam: absent: Calf Tenderness, Tenderness - Neurological Exam Neurological Exam: Alert, Awake, Oriented x3 - Psychiatric Exam Psychiatric exam: Normal Affect, Normal Mood - Skin Skin Exam: Dry, Normal Color, Warm Assessment and Plan - Assessment and Plan (Free Text) Plan: Acute respiratory failure with hypoxia Intubated on admission and extubated 03/23. ARF possibly secondary to pneumonia versus congestive heart failure. 03/25: Breathing comfortably today CHF (congestive heart failure), NYHA class IV Lasix 40 mg IV daily Metoprolol 50 mg PO BID Lisinopril 2.5 mg PO daily (Did not restart her home dosage due to low blood pressure) Echo showing low EF 31%, left atrium is very dilated. Hypokinesis reported. Atrial fibrillation Lopressor 50 mg PO BID Cardizem 30 mg PO TID Lovenox 90 mg SC Q12 Digoxin 0.25 mg IV 03/26: Started on Digoxin 0.25mg IV, dc'd Cardizem. Continue Lopressor, hold if SBP<95. 03/25: Held off on Digoxin for now and started Cardizem 30 mg PO TID instead. 03/24: There was rapid afib with RVR this morning. Now on digoxin and metoprolol for rate control Hypotension Possibly secondary to sepsis. Blood pressure is stable now. Pneumonia 03/26: Patient's WBC has returned to normal. No fevers over night. Will dc Cefepime. 03/25: Afebrile. Cultures remain negative. Possibly D/C the Cefepime on 03/24: WBC ok, no fevers. Cultures are remain negatve 03/23: Currently reporting no coughing, no fever past 24 hrs, cultures remain negative at this time. 03/22: Continue on Vancomycin and Cefepime IV for the time. Currently the cultures blood negative 48hrs and the sputum and urine are negative at this time. WBC is stable at this time. Afebrile. No fevers recorded this morning however yesterday Tmax was 100.0 Right side Pulmonary effusion 03/25: Ordered PA/Lat CXR. IR consulted for thoracentesis. They did not think the procedure was warranted as improvement seen on CXR from today. Pulmonary edema 03/25: continues to breathe well. On Lasix 40 mg IV daily Continue diuresis. History of Hypertension See CHF and Afib above. Lopressor, Cardizem, Lisinopril. Prophylactic measure Pepcid 20 mg PO daily Therapeutic Lovenox Case discussed with Dr. Carol Hernandez PGY1 <Mihir Medina - Last Filed: 03/26/17 15:46> Objective - Vital Signs/Intake and Output Vital Signs (last 24 hours): Temp Pulse Resp BP Pulse Ox 98.3 F 89 19 113/70 96 03/26/17 07:47 03/26/17 12:50 03/26/17 07:47 03/26/17 12:50 03/26/17 07:47 Intake and Output: 03/26/17 03/26/17 06:59 18:59 Intake Total 400 880 Balance 400 880 - Medications Medications: Current Medications Digoxin (Lanoxin) 0.25 mg IVP ONCE ONE Stop: 03/27/17 10:45 Diphenhydramine HCl (Benadryl) 25 mg PO Q12H PRN PRN Reason: pruritus and rash Last Admin: 03/26/17 14:51 Dose: 25 mg Enoxaparin Sodium (Lovenox) 90 mg SC Q12 [facility] Last Admin: 03/26/17 09:51 Dose: 90 mg Famotidine (Pepcid) 20 mg PO DAILY [facility] Last Admin: 03/26/17 09:50 Dose: 20 mg Furosemide (Lasix) 40 mg IVP Q24H [facility] Last Admin: 03/26/17 08:53 Dose: 40 mg Lisinopril (Zestril) 2.5 mg PO DAILY [facility] Last Admin: 03/26/17 09:53 Dose: Not Given Metoprolol Tartrate (Lopressor) 50 mg PO BID [facility] Potassium Chloride (K-Dur 20 Meq Er Tab) 20 meq PO DAILY [facility] Last Admin: 03/26/17 09:50 Dose: 20 meq - Labs Labs: 03/26/17 11:07 03/26/17 11:07 PT 12.5 SECONDS (9.7-12.2) H 03/19/17 06:57 INR 1.1 03/19/17 06:57 APTT 29 SECONDS (21-34) 03/19/17 06:57 Attending/Attestation - Attestation I have personally seen and examined this patient.: Yes I have fully participated in the care of the patient.: Yes I have reviewed all pertinent clinical information, including history, physical exam and plan: Yes Notes (Text): 03/26/17 15:40 Medical attending: Patient was seen and examined by me. Agree with the above note by the resident. The patient is now on the medical floor. Per review of telemetry HR was in the 110s to 120s irregular irregular. Her metoprolol had not yet been given and the cardizem held due to concerns of the blood pressure in the systolic 90s. On exam she reported feeling well. Denied palpitations, denied chest pain, denied stomach/abdominal pain. Denied shortness of breath. Add digoxin x 1 today, also gave ordered to give metoprolol with new holding paramaters. Stop the cardizem for now. If CBC returns and is ok then probably will DC the IV abx as well. thank you Mihir Medina
--- NOTE | 2017-03-27 03:25 | CP.PCM.PN ---
Subjective - Date & Time of Evaluation Date of Evaluation: 03/26/17 Time of Evaluation: 19:30 - Subjective Subjective: HR controlled on digoxin and bb SOB resolved Objective - Vital Signs/Intake and Output Vital Signs (last 24 hours): Temp Pulse Resp BP Pulse Ox 98.6 F 92 H 20 107/65 96 03/26/17 23:05 03/26/17 23:25 03/26/17 23:05 03/26/17 23:05 03/26/17 23:05 Intake and Output: 03/26/17 03/27/17 18:59 06:59 Intake Total 880 Balance 880 - Medications Medications: Current Medications Digoxin (Lanoxin) 0.25 mg IVP ONCE ONE Stop: 03/27/17 10:45 Diphenhydramine HCl (Benadryl) 25 mg PO Q12H PRN PRN Reason: pruritus and rash Last Admin: 03/26/17 14:51 Dose: 25 mg Enoxaparin Sodium (Lovenox) 90 mg SC Q12 [facility] Last Admin: 03/26/17 21:37 Dose: 90 mg Famotidine (Pepcid) 20 mg PO DAILY [facility] Last Admin: 03/26/17 09:50 Dose: 20 mg Furosemide (Lasix) 40 mg IVP Q24H [facility] Last Admin: 03/26/17 08:53 Dose: 40 mg Lisinopril (Zestril) 2.5 mg PO DAILY [facility] Last Admin: 03/26/17 09:53 Dose: Not Given Metoprolol Tartrate (Lopressor) 50 mg PO BID [facility] Last Admin: 03/26/17 17:25 Dose: 50 mg Potassium Chloride (K-Dur 20 Meq Er Tab) 20 meq PO DAILY [facility] Last Admin: 03/26/17 09:50 Dose: 20 meq - Labs Labs: 03/26/17 11:07 03/26/17 11:07 PT 12.5 SECONDS (9.7-12.2) H 03/19/17 06:57 INR 1.1 03/19/17 06:57 APTT 29 SECONDS (21-34) 03/19/17 06:57 - Constitutional Appears: Well - Head Exam Head Exam: ATRAUMATIC, NORMAL INSPECTION, NORMOCEPHALIC - Eye Exam Eye Exam: EOMI, Normal appearance, PERRL Pupil Exam: NORMAL ACCOMODATION, PERRL - ENT Exam ENT Exam: Mucous Membranes Moist, Normal Exam - Neck Exam Neck Exam: Full ROM, Normal Inspection. absent: Lymphadenopathy - Respiratory Exam Respiratory Exam: Rales, Rhonchi, NORMAL BREATHING PATTERN - Cardiovascular Exam Cardiovascular Exam: Irregular Rhythm, +S1, +S2, Murmur - GI/Abdominal Exam GI & Abdominal Exam: Soft, Normal Bowel Sounds. absent: Tenderness - Extremities Exam Extremities Exam: Full ROM, Normal Capillary Refill, Normal Inspection. absent : Joint Swelling, Pedal Edema - Back Exam Back Exam: NORMAL INSPECTION - Neurological Exam Neurological Exam: Alert, Awake, CN II-XII Intact, Normal Gait, Oriented x3 - Psychiatric Exam Psychiatric exam: Normal Affect, Normal Mood - Skin Skin Exam: Dry, Intact, Normal Color, Warm Assessment and Plan (1) A-fib Assessment & Plan: rate controlled on bb and digoxin cont bb and digoxin 0.125 daily increase dose of metoprolol to 75mg po bid on lovenox Status: Acute (2) CHF (congestive heart failure), NYHA class IV Assessment & Plan: etiology ? tachycardia induced vs. ischemic stress test on wednesday cont bb and low dose acei cont with lasix Status: Acute (3) Acute respiratory failure with hypoxia Status: Acute (4) Hypotension Status: Acute (5) Pneumonia Status: Acute (6) Pulmonary edema Status: Acute
[2017-03-27 08:31] LABS: BASO % 0.3 % (0.0-2.0); EOS # 0.3 K/uL (0.0-0.7); HEMATOCRIT 40.5 % (34.0-47.0); LYMPH % 21.8 % (20.0-40.0); MEAN CORPUSCULAR HEMOGLOBIN 30.7 pg (27.0-31.0); MEAN CORPUSCULAR HGB CONC 33.4 g/dL (33.0-37.0); MEAN PLATELET VOLUME 9.8 fL (7.2-11.7); MONO # 0.7 K/uL (0.0-0.8); MONO % 7.3 % (0.0-10.0); RED CELL DISTRIBUTION WIDTH 12.9 % (11.5-14.5)
[2017-03-27 08:54] LABS: CHLORIDE 98 mmol/L (98-107)
[2017-03-27 08:55] LABS: POTASSIUM 4.1 mmol/L (3.6-5.2); SODIUM 137 mmol/L (132-148)
[2017-03-27 08:57] LABS: BILIRUBIN,TOTAL 0.7 mg/dL (0.2-1.3); CARBON DIOXIDE 30 mmol/L (22-30); GFR AFRICAN-AMERICAN > 60
[2017-03-27 08:58] LABS: ALB/GLOB RATIO 1.1 (1.0-2.1); ALKALINE PHOSPHATASE 52 U/L (38-126); ALT/SGPT 51 U/L (9-52); AST/SGOT 25 U/L (14-36); BLOOD UREA NITROGEN 16 mg/dL (7-17); CALCIUM 9.1 mg/dl (8.6-10.4); GLUCOSE,RANDOM 94 mg/dL (65-105); PHOSPHOROUS 3.4 mg/dL (2.5-4.5); TOTAL PROTEIN 6.2 g/dL (6.3-8.3)
[2017-03-27 08:59] LABS: MAGNESIUM 1.8 mg/dL (1.6-2.3)
[2017-03-27] MEDS: Enoxaparin 100 mg Syringe SC SCH ×2 (09:28→21:29)
[2017-03-27] MEDS: Potassium Chloride 20 mEq ER Tab PO SCH (09:28)
--- NOTE | 2017-03-27 09:49 | CP.PCM.PN ---
Subjective - Date & Time of Evaluation Date of Evaluation: 03/27/17 Time of Evaluation: 09:30 - Subjective Subjective: Patient was seen and examined by me. She reported doing well overnight besides a rash on her forearm that resolved with some benadryl. Otherwise no acute complaints or acute events overnight. Per review of telemetry her HR is mostly in the 80s to 90s, remains irregular irregular. BP systolic in the 110s Otherwise she denied fever or chills. The PA/Lateral CXRAY look MUCH better than when she came in, pleural effusions much better. Cardiology is planning on stress test Wednesday Objective - Vital Signs/Intake and Output Vital Signs (last 24 hours): Temp Pulse Resp BP Pulse Ox 98.3 F 72 20 112/73 94 L 03/27/17 07:28 03/27/17 07:28 03/27/17 07:28 03/27/17 09:28 03/27/17 07:28 - Medications Medications: Current Medications Digoxin (Lanoxin) 0.25 mg IVP ONCE ONE Stop: 03/27/17 10:45 Diphenhydramine HCl (Benadryl) 25 mg PO Q12H PRN PRN Reason: pruritus and rash Last Admin: 03/27/17 07:11 Dose: 25 mg Enoxaparin Sodium (Lovenox) 90 mg SC Q12 [facility] Last Admin: 03/27/17 09:28 Dose: 90 mg Famotidine (Pepcid) 20 mg PO DAILY [facility] Last Admin: 03/27/17 09:27 Dose: 20 mg Furosemide (Lasix) 40 mg IVP Q24H [facility] Last Admin: 03/27/17 09:28 Dose: 40 mg Lisinopril (Zestril) 2.5 mg PO DAILY [facility] Last Admin: 03/26/17 09:53 Dose: Not Given Metoprolol Tartrate (Lopressor) 50 mg PO BID [facility] Last Admin: 03/27/17 09:27 Dose: 50 mg Potassium Chloride (K-Dur 20 Meq Er Tab) 20 meq PO DAILY [facility] Last Admin: 03/27/17 09:28 Dose: 20 meq - Labs Labs: 03/27/17 08:15 03/27/17 08:15 PT 12.5 SECONDS (9.7-12.2) H 03/19/17 06:57 INR 1.1 03/19/17 06:57 APTT 29 SECONDS (21-34) 03/19/17 06:57 - Constitutional Appears: Well, Non-toxic, No Acute Distress - Head Exam Head Exam: ATRAUMATIC, NORMAL INSPECTION, NORMOCEPHALIC - Eye Exam Eye Exam: EOMI, Normal appearance - ENT Exam ENT Exam: Mucous Membranes Moist - Respiratory Exam Respiratory Exam: Clear to Ausculation Bilateral, NORMAL BREATHING PATTERN - GI/Abdominal Exam GI & Abdominal Exam: Soft, Normal Bowel Sounds - Neurological Exam Neurological Exam: Alert, Awake, Oriented x3 Neuro motor strength exam: Left Upper Extremity: 5, Right Upper Extremity: 5 - Psychiatric Exam Psychiatric exam: Depressed, Flat Affect - Skin Skin Exam: Normal Color, Warm Assessment and Plan - Assessment and Plan (Free Text) Assessment: Atrial fibrillation Lopressor 50 mg PO BID Lovenox 90 mg SC Q12 Digoxin 0.25 mg IV 03/27: HR on telemetry is 80s to 90s in atrial fibrillation. Did not have episodes of RVR on the telemonitor. Pending stress test on Monday 03/26: Started on Digoxin 0.25mg IV, dc'd Cardizem. Continue Lopressor, hold if SBP<95. 03/25: Held off on Digoxin for now and started Cardizem 30 mg PO TID instead. 03/24: There was rapid afib with RVR this morning. Now on digoxin and metoprolol for rate control CHF (congestive heart failure), NYHA class IV 03/27: On BB, YANNA, Statin. Pending stress test this Wednesday. She reports not being short of breath at rest and also reports able to ambulate slowly as well. The repeat CXRAYs look much better. Lasix 40 mg IV daily Metoprolol 50 mg PO BID Lisinopril 2.5 mg PO daily (Did not restart her home dosage due to low blood pressure) Echo showing low EF 31%, left atrium is very dilated. Hypokinesis reported. Pneumonia 03/27: Cultures remains negative, patient denied cooughing, WBC stable. Not afebrile 03/26: Patient's WBC has returned to normal. No fevers over night. Will dc Cefepime. 03/25: Afebrile. Cultures remain negative. Possibly D/C the Cefepime on 03/24: WBC ok, no fevers. Cultures are remain negatve 03/23: Currently reporting no coughing, no fever past 24 hrs, cultures remain negative at this time. 03/22: Continue on Vancomycin and Cefepime IV for the time. Currently the cultures blood negative 48hrs and the sputum and urine are negative at this time. WBC is stable at this time. Afebrile. No fevers recorded this morning however yesterday Tmax was 100.0 Right side Pulmonary effusion 03/27: Doing well. CXRAY look much improved. 03/25: Ordered PA/Lat CXR. IR consulted for thoracentesis. They did not think the procedure was warranted as improvement seen on CXR from today. History of Hypertension 03/27: Currently stable on metoprolol BID and YANNA I See CHF and Afib above. Lopressor, Cardizem, Lisinopril. Prophylactic measure Pepcid 20 mg PO daily Therapeutic Lovenox
[2017-03-27] MEDS ORDERED: Digoxin 500 mcg/2ml (0.5 mg/2ml) Inj IVP ONE (10:44)
[2017-03-27] MEDS: Calamine-Zinc Oxide Lotion (120 ml) TOP SCH ×2 (17:43→23:55)
[2017-03-28] MEDS: Calamine-Zinc Oxide Lotion (120 ml) TOP SCH ×3 (05:49→18:09)
[2017-03-28 07:13] LABS: BASO % 0.2 % (0.0-2.0); EOS # 0.3 K/uL (0.0-0.7); EOS % 3.6 % (0.0-4.0); LYMPH # 2.5 K/uL (1.0-4.3); LYMPH % 34.2 % (20.0-40.0); MEAN CORPUSCULAR HEMOGLOBIN 31.1 pg (27.0-31.0); MEAN CORPUSCULAR HGB CONC 33.8 g/dL (33.0-37.0); MEAN PLATELET VOLUME 9.3 fL (7.2-11.7); MONO # 0.6 K/uL (0.0-0.8); MONO % 8.8 % (0.0-10.0); RED CELL DISTRIBUTION WIDTH 13.1 % (11.5-14.5); WHITE BLOOD COUNT 7.3 K/uL (4.8-10.8)
[2017-03-28 07:36] LABS: CHLORIDE 99 mmol/L (98-107)
[2017-03-28 07:37] LABS: POTASSIUM 3.9 mmol/L (3.6-5.2); SODIUM 138 mmol/L (132-148)
[2017-03-28 07:39] LABS: BILIRUBIN,TOTAL 0.6 mg/dL (0.2-1.3); GFR AFRICAN-AMERICAN > 60
[2017-03-28 07:40] LABS: ALKALINE PHOSPHATASE 48 U/L (38-126); ALT/SGPT 71 U/L (9-52); AST/SGOT 48 U/L (14-36); BLOOD UREA NITROGEN 17 mg/dL (7-17); CALCIUM 8.9 mg/dl (8.6-10.4); CARBON DIOXIDE 30 mmol/L (22-30); GLUCOSE,RANDOM 96 mg/dL (65-105); PHOSPHOROUS 3.5 mg/dL (2.5-4.5); TOTAL PROTEIN 6.1 g/dL (6.3-8.3)
[2017-03-28 07:41] LABS: MAGNESIUM 1.8 mg/dL (1.6-2.3)
[2017-03-28] MEDS: Enoxaparin 100 mg Syringe SC SCH ×2 (09:25→22:02)
[2017-03-28] MEDS: Potassium Chloride 20 mEq ER Tab PO SCH (09:26)
--- NOTE | 2017-03-28 09:43 | CP.PCM.PN ---
<Isaiah Hernandez - Last Filed: 03/28/17 09:39> Subjective - Date & Time of Evaluation Date of Evaluation: 03/28/17 Time of Evaluation: 09:39 - Subjective Subjective: PGY1 Medicine Note for Dr. Medina Patient seen and examined at bedside this morning. Patient states that she is feeling well. She has been able to get out of bed and ambulate without any problems. She is tolerating her diet well. States that she is still itchy at times, but the benadryl and calamine lotion are helping. Denies f/c, n/v, d/c, sob, cp, palpitations, lightheadedness or dizziness. Objective - Vital Signs/Intake and Output Vital Signs (last 24 hours): Temp Pulse Resp BP Pulse Ox 98.3 F 79 18 102/60 97 03/28/17 07:40 03/28/17 07:40 03/28/17 07:40 03/28/17 09:26 03/28/17 07:40 Intake and Output: 03/28/17 03/28/17 06:59 18:59 Intake Total 400 Balance 400 - Medications Medications: Current Medications Calamine (Calamine Lotion) 1 ml TOP Q6 [facility] Last Admin: 03/28/17 05:49 Dose: Not Given Digoxin (Lanoxin) 0.125 mg PO DAILY@1800 [facility] Diphenhydramine HCl (Benadryl) 25 mg PO Q12H PRN PRN Reason: pruritus and rash Last Admin: 03/27/17 07:11 Dose: 25 mg Enoxaparin Sodium (Lovenox) 90 mg SC Q12 [facility] Last Admin: 03/28/17 09:25 Dose: 90 mg Famotidine (Pepcid) 20 mg PO DAILY [facility] Last Admin: 03/28/17 09:26 Dose: 20 mg Furosemide (Lasix) 40 mg IVP Q24H [facility] Last Admin: 03/28/17 09:26 Dose: 40 mg Lisinopril (Zestril) 2.5 mg PO DAILY [facility] Last Admin: 03/28/17 09:25 Dose: 2.5 mg Metoprolol Tartrate (Lopressor) 50 mg PO BID [facility] Last Admin: 03/28/17 09:26 Dose: 50 mg Potassium Chloride (K-Dur 20 Meq Er Tab) 20 meq PO DAILY [facility] Last Admin: 03/28/17 09:26 Dose: 20 meq - Labs Labs: 03/28/17 07:08 03/28/17 07:08 PT 12.5 SECONDS (9.7-12.2) H 03/19/17 06:57 INR 1.1 03/19/17 06:57 APTT 29 SECONDS (21-34) 03/19/17 06:57 - Constitutional Appears: Non-toxic, No Acute Distress - Head Exam Head Exam: ATRAUMATIC, NORMOCEPHALIC - Eye Exam Eye Exam: EOMI, Normal appearance - ENT Exam ENT Exam: Mucous Membranes Moist - Respiratory Exam Respiratory Exam: Clear to Ausculation Bilateral, NORMAL BREATHING PATTERN. absent: Accessory Muscle Use, Rales, Rhonchi, Wheezes, Respiratory Distress - Cardiovascular Exam Cardiovascular Exam: Irregular Rhythm (HR in 80-90s on telemetry. currently in afib.), +S1, +S2 - GI/Abdominal Exam GI & Abdominal Exam: Soft, Normal Bowel Sounds. absent: Distended, Guarding, Rigid, Tenderness - Extremities Exam Extremities Exam: absent: Calf Tenderness, Pedal Edema, Tenderness - Neurological Exam Neurological Exam: Alert, Awake, Normal Gait, Oriented x3 - Psychiatric Exam Psychiatric exam: Normal Affect, Normal Mood - Skin Skin Exam: Dry, Normal Color, Warm Assessment and Plan - Assessment and Plan (Free Text) Plan: Atrial fibrillation Lopressor 50 mg PO BID Lovenox 90 mg SC Q12 Started on Digoxin 0.125 mg PO daily - f/u digoxin level 03/28: HR on telemetry is 80s to 90s in atrial fibrillation. Scheduled for Stress test with Dr. Kelley on Wednesday. 03/27: HR on telemetry is 80s to 90s in atrial fibrillation. Did not have episodes of RVR on the telemonitor. Pending stress test on Monday 03/26: Started on Digoxin 0.25mg IV, dc'd Cardizem. Continue Lopressor, hold if SBP<95. 03/25: Held off on Digoxin for now and started Cardizem 30 mg PO TID instead. 03/24: There was rapid afib with RVR this morning. Now on digoxin and metoprolol for rate control CHF (congestive heart failure), NYHA class IV 03/27: On BB, YANNA, Statin. Pending stress test this Wednesday. She reports not being short of breath at rest and also reports able to ambulate slowly as well. The repeat CXRAYs look much better. Lasix 40 mg IV daily Metoprolol 50 mg PO BID Lisinopril 2.5 mg PO daily (Did not restart her home dosage due to low blood pressure) Echo showing low EF 31%, left atrium is very dilated. Hypokinesis reported. Pneumonia 03/28: All cultures negative. Abx have been stopped. 03/27: Cultures remains negative, patient denied cooughing, WBC stable. Not afebrile 03/26: Patient's WBC has returned to normal. No fevers over night. Will dc Cefepime. 03/25: Afebrile. Cultures remain negative. Possibly D/C the Cefepime on 03/24: WBC ok, no fevers. Cultures are remain negatve 03/23: Currently reporting no coughing, no fever past 24 hrs, cultures remain negative at this time. 03/22: Continue on Vancomycin and Cefepime IV for the time. Currently the cultures blood negative 48hrs and the sputum and urine are negative at this time. WBC is stable at this time. Afebrile. No fevers recorded this morning however yesterday Tmax was 100.0 Right side Pulmonary effusion 03/27: Doing well. CXRAY look much improved. 03/25: Ordered PA/Lat CXR. IR consulted for thoracentesis. They did not think the procedure was warranted as improvement seen on CXR from today. History of Hypertension 03/27: Currently stable on metoprolol BID and YANNA I See CHF and Afib above. Lopressor, Cardizem, Lisinopril. Prophylactic measure Pepcid 20 mg PO daily Therapeutic Lovenox Case discussed with Dr. Carol Hernandez PGY1 <Mihir Medina - Last Filed: 03/28/17 10:12> Objective - Vital Signs/Intake and Output Vital Signs (last 24 hours): Temp Pulse Resp BP Pulse Ox 98.3 F 79 18 102/60 97 03/28/17 07:40 03/28/17 07:40 03/28/17 07:40 03/28/17 09:26 03/28/17 07:40 Intake and Output: 03/28/17 03/28/17 06:59 18:59 Intake Total 400 Balance 400 - Medications Medications: Current Medications Calamine (Calamine Lotion) 1 ml TOP Q6 [facility] Last Admin: 03/28/17 05:49 Dose: Not Given Digoxin (Lanoxin) 0.125 mg PO DAILY@1800 [facility] Diphenhydramine HCl (Benadryl) 25 mg PO Q12H PRN PRN Reason: pruritus and rash Last Admin: 03/27/17 07:11 Dose: 25 mg Enoxaparin Sodium (Lovenox) 90 mg SC Q12 [facility] Last Admin: 03/28/17 09:25 Dose: 90 mg Famotidine (Pepcid) 20 mg PO DAILY [facility] Last Admin: 03/28/17 09:26 Dose: 20 mg Furosemide (Lasix) 40 mg IVP Q24H [facility] Last Admin: 03/28/17 09:26 Dose: 40 mg Lisinopril (Zestril) 2.5 mg PO DAILY [facility] Last Admin: 03/28/17 09:25 Dose: 2.5 mg Metoprolol Tartrate (Lopressor) 50 mg PO BID [facility] Last Admin: 03/28/17 09:26 Dose: 50 mg Potassium Chloride (K-Dur 20 Meq Er Tab) 20 meq PO DAILY [facility] Last Admin: 03/28/17 09:26 Dose: 20 meq - Labs Labs: 03/28/17 07:08 03/28/17 07:08 PT 12.5 SECONDS (9.7-12.2) H 03/19/17 06:57 INR 1.1 03/19/17 06:57 APTT 29 SECONDS (21-34) 03/19/17 06:57 Attending/Attestation - Attestation I have personally seen and examined this patient.: Yes I have fully participated in the care of the patient.: Yes I have reviewed all pertinent clinical information, including history, physical exam and plan: Yes Notes (Text): 03/28/17 10:10 Medical Attending: Patient was seen and examined by me. Agree with the above note by the resident. The patient's HR is much better today when reviewing the telemetry. Will change from IV digoxin over to PO digoxin. Also check a digoxin level as well. Pending potential stress test this Wednesday. The patient denied fever or chills. WBC remains stable. Cultures are negative. She previously had abx discontinued. Continue to monitor. thank you Mihir Medina
[2017-03-28] MEDS: Digoxin 125 mcg (0.125 mg) Tab PO SCH (18:08)
[2017-03-29] MEDS: Calamine-Zinc Oxide Lotion (120 ml) TOP SCH ×4 (00:12→17:36)
[2017-03-29 07:14] LABS: ALB/GLOB RATIO 1.2 (1.0-2.1); ALKALINE PHOSPHATASE 50 U/L (38-126); ALT/SGPT 88 U/L (9-52); AST/SGOT 53 U/L (14-36); BILIRUBIN,TOTAL 0.6 mg/dL (0.2-1.3); BLOOD UREA NITROGEN 18 mg/dL (7-17); CALCIUM 8.9 mg/dl (8.6-10.4); CARBON DIOXIDE 29 mmol/L (22-30); CHLORIDE 99 mmol/L (98-107); GFR AFRICAN-AMERICAN > 60; GLUCOSE,RANDOM 97 mg/dL (65-105); PHOSPHOROUS 3.4 mg/dL (2.5-4.5); POTASSIUM 3.7 mmol/L (3.6-5.2); SODIUM 137 mmol/L (132-148); TOTAL PROTEIN 6.1 g/dL (6.3-8.3)
[2017-03-29 07:22] LABS: BASO % 0.2 % (0.0-2.0); EOS # 0.3 K/uL (0.0-0.7); EOS % 3.3 % (0.0-4.0); HEMATOCRIT 39.5 % (34.0-47.0); LYMPH # 3.3 K/uL (1.0-4.3); LYMPH % 39.4 % (20.0-40.0); MEAN CELL VOLUME 92.1 fL (81.0-99.0); MEAN CORPUSCULAR HEMOGLOBIN 30.6 pg (27.0-31.0); MEAN CORPUSCULAR HGB CONC 33.2 g/dL (33.0-37.0); MEAN PLATELET VOLUME 9.7 fL (7.2-11.7); MONO # 0.7 K/uL (0.0-0.8); MONO % 8.8 % (0.0-10.0); NRBC % 0.1 % (0.0-2.0); RED CELL DISTRIBUTION WIDTH 13.2 % (11.5-14.5); WHITE BLOOD COUNT 8.3 K/uL (4.8-10.8)
--- NOTE | 2017-03-29 08:07 | CP.PCM.PN ---
<Pierre Polanco - Last Filed: 03/29/17 12:32> Subjective - Date & Time of Evaluation Date of Evaluation: 03/29/17 Time of Evaluation: 08:04 - Subjective Subjective: PGY1 Note for Dr. Osuna HPI: Patient seen and examined at bedside. Doing well with no complaints at this time. S/p stress test today. Waiting on the results before we start any oral anticoag per Dr. Kelley. Patient is feeling much better. No CP, N/V/D, SOB, Fever. Objective - Vital Signs/Intake and Output Vital Signs (last 24 hours): Temp Pulse Resp BP Pulse Ox 98.2 F 71 20 111/77 97 03/28/17 23:10 03/29/17 01:00 03/28/17 23:10 03/28/17 23:10 03/28/17 23:10 - Medications Medications: Current Medications Calamine (Calamine Lotion) 1 ml TOP Q6 [facility] Last Admin: 03/29/17 05:14 Dose: 1 ml Digoxin (Lanoxin) 0.125 mg PO DAILY@1800 [facility] Last Admin: 03/28/17 18:08 Dose: 0.125 mg Diphenhydramine HCl (Benadryl) 25 mg PO Q12H PRN PRN Reason: pruritus and rash Last Admin: 03/27/17 07:11 Dose: 25 mg Enoxaparin Sodium (Lovenox) 90 mg SC Q12 [facility] Last Admin: 03/28/17 22:02 Dose: 90 mg Famotidine (Pepcid) 20 mg PO DAILY [facility] Last Admin: 03/28/17 09:26 Dose: 20 mg Furosemide (Lasix) 40 mg IVP Q24H [facility] Last Admin: 03/28/17 09:26 Dose: 40 mg Lisinopril (Zestril) 2.5 mg PO DAILY [facility] Last Admin: 03/28/17 09:25 Dose: 2.5 mg Metoprolol Tartrate (Lopressor) 50 mg PO BID [facility] Last Admin: 03/28/17 18:09 Dose: Not Given Potassium Chloride (K-Dur 20 Meq Er Tab) 20 meq PO DAILY [facility] Last Admin: 03/28/17 09:26 Dose: 20 meq - Labs Labs: 03/29/17 06:45 03/29/17 06:45 PT 12.5 SECONDS (9.7-12.2) H 03/19/17 06:57 INR 1.1 03/19/17 06:57 APTT 29 SECONDS (21-34) 03/19/17 06:57 - Constitutional Appears: Well, Non-toxic, No Acute Distress - Head Exam Head Exam: ATRAUMATIC, NORMAL INSPECTION, NORMOCEPHALIC - Eye Exam Eye Exam: EOMI Pupil Exam: NORMAL ACCOMODATION - ENT Exam ENT Exam: Mucous Membranes Moist - Respiratory Exam Respiratory Exam: Clear to Ausculation Bilateral, NORMAL BREATHING PATTERN. absent: Rales, Rhonchi, Wheezes - Cardiovascular Exam Cardiovascular Exam: Irregular Rhythm. absent: Diastolic murmur, Gallop, Rubs, Murmur Additional comments: irregularly irregular - GI/Abdominal Exam GI & Abdominal Exam: Soft, Normal Bowel Sounds. absent: Distended, Tenderness - Extremities Exam Extremities Exam: absent: Joint Swelling, Pedal Edema, Tenderness - Neurological Exam Neurological Exam: Alert, Awake, Oriented x3 - Psychiatric Exam Psychiatric exam: Normal Affect, Normal Mood - Skin Skin Exam: Dry, Intact, Normal Color, Warm Assessment and Plan - Assessment and Plan (Free Text) Assessment: Atrial fibrillation * Cards ([facility]) - F/U reccs * Lopressor 50 mg PO BID * Lovenox 90 mg SC Q12 * Digoxin 0.125 mg PO daily * 03/28 Dig Lvl = 0.6 CHF, NYHA class IV * Cards ([facility]) - F/U reccs * F/U stress test * Lasix 40 mg IV daily * Metoprolol 75 mg PO BID * Lisinopril 2.5 mg PO daily * Crestor 2.5 mg PO QD * Echo = EF 31% Pneumonia * All cultures negative. Abx have been stopped. History of Hypertension * Metoprolol 50 mg PO BID * Lisinopril 2.5 mg PO daily * Lasix 40 mg IV daily Prophylactic measure * Pepcid 20 mg PO daily * Therapeutic Lovenox <Ace Osuna - Last Filed: 03/29/17 15:29> Objective - Vital Signs/Intake and Output Vital Signs (last 24 hours): Temp Pulse Resp BP Pulse Ox 986 F H 76 20 106/64 96 03/29/17 09:41 03/29/17 09:41 03/29/17 09:41 03/29/17 11:44 03/29/17 09:41 - Medications Medications: Current Medications Calamine (Calamine Lotion) 1 ml TOP Q6 [facility] Last Admin: 03/29/17 12:09 Dose: 1 ml Digoxin (Lanoxin) 0.125 mg PO DAILY@1800 [facility] Last Admin: 03/28/17 18:08 Dose: 0.125 mg Diphenhydramine HCl (Benadryl) 25 mg PO Q12H PRN PRN Reason: pruritus and rash Last Admin: 03/27/17 07:11 Dose: 25 mg Enoxaparin Sodium (Lovenox) 90 mg SC Q12 [facility] Last Admin: 03/29/17 11:41 Dose: 90 mg Famotidine (Pepcid) 20 mg PO DAILY [facility] Last Admin: 03/29/17 11:42 Dose: 20 mg Furosemide (Lasix) 40 mg IVP Q24H [facility] Last Admin: 03/29/17 11:44 Dose: 40 mg Lisinopril (Zestril) 2.5 mg PO DAILY [facility] Last Admin: 03/29/17 11:43 Dose: 2.5 mg Metoprolol Tartrate (Lopressor) 100 mg PO BID [facility] Potassium Chloride (K-Dur 20 Meq Er Tab) 20 meq PO DAILY [facility] Last Admin: 03/29/17 11:42 Dose: 20 meq Rosuvastatin Calcium (Crestor) 5 mg PO HS [facility] - Labs Labs: 03/29/17 06:45 03/29/17 06:45 PT 13.4 SECONDS (9.7-12.2) H 03/29/17 14:05 INR 1.2 03/29/17 14:05 APTT 29 SECONDS (21-34) 03/19/17 06:57 Assessment and Plan (1) Acute respiratory failure with hypoxia Status: Acute (2) CHF (congestive heart failure), NYHA class IV Status: Acute (3) Hypotension Status: Acute (4) Pneumonia Status: Acute (5) Pulmonary edema Status: Acute (6) Prophylactic measure Status: Acute Attending/Attestation - Attestation I have personally seen and examined this patient.: Yes I have fully participated in the care of the patient.: Yes I have reviewed all pertinent clinical information, including history, physical exam and plan: Yes Notes (Text): 03/29/17 15:29 Patient seen and examined at bedside. Status post cardiac stress test. Follow-up results Start anticoagulation as per recommendations of cardiology. I discussed the plan of care with the resident and agree with the assessment and plan documented.
[2017-03-29] MEDS ORDERED: Aminophylline 25 mg/ml Inj ONE (09:32)
--- NOTE | 2017-03-29 10:18 | CP.PCM.PN ---
Subjective - Date & Time of Evaluation Date of Evaluation: 03/29/17 Time of Evaluation: 10:15 - Subjective Subjective: feeling fine SOB better stress test today Objective - Vital Signs/Intake and Output Vital Signs (last 24 hours): Temp Pulse Resp BP Pulse Ox 986 F H 76 20 106/64 96 03/29/17 09:41 03/29/17 09:41 03/29/17 09:41 03/29/17 09:41 03/29/17 09:41 - Medications Medications: Current Medications Calamine (Calamine Lotion) 1 ml TOP Q6 [facility] Last Admin: 03/29/17 05:14 Dose: 1 ml Digoxin (Lanoxin) 0.125 mg PO DAILY@1800 [facility] Last Admin: 03/28/17 18:08 Dose: 0.125 mg Diphenhydramine HCl (Benadryl) 25 mg PO Q12H PRN PRN Reason: pruritus and rash Last Admin: 03/27/17 07:11 Dose: 25 mg Enoxaparin Sodium (Lovenox) 90 mg SC Q12 [facility] Last Admin: 03/28/17 22:02 Dose: 90 mg Famotidine (Pepcid) 20 mg PO DAILY [facility] Last Admin: 03/28/17 09:26 Dose: 20 mg Furosemide (Lasix) 40 mg IVP Q24H [facility] Last Admin: 03/28/17 09:26 Dose: 40 mg Lisinopril (Zestril) 2.5 mg PO DAILY [facility] Last Admin: 03/28/17 09:25 Dose: 2.5 mg Metoprolol Tartrate (Lopressor) 50 mg PO BID [facility] Last Admin: 03/28/17 18:09 Dose: Not Given Potassium Chloride (K-Dur 20 Meq Er Tab) 20 meq PO DAILY [facility] Last Admin: 03/28/17 09:26 Dose: 20 meq Rosuvastatin Calcium (Crestor) 5 mg PO HS [facility] - Labs Labs: 03/29/17 06:45 03/29/17 06:45 PT 12.5 SECONDS (9.7-12.2) H 03/19/17 06:57 INR 1.1 03/19/17 06:57 APTT 29 SECONDS (21-34) 03/19/17 06:57 - Constitutional Appears: Well - Head Exam Head Exam: ATRAUMATIC, NORMAL INSPECTION, NORMOCEPHALIC - Eye Exam Eye Exam: EOMI, Normal appearance, PERRL Pupil Exam: NORMAL ACCOMODATION, PERRL - ENT Exam ENT Exam: Mucous Membranes Moist, Normal Exam - Neck Exam Neck Exam: Full ROM, Normal Inspection. absent: Lymphadenopathy - Respiratory Exam Respiratory Exam: Clear to Ausculation Bilateral, NORMAL BREATHING PATTERN - Cardiovascular Exam Cardiovascular Exam: Irregular Rhythm, +S1, +S2, Murmur - GI/Abdominal Exam GI & Abdominal Exam: Soft, Normal Bowel Sounds. absent: Tenderness - Extremities Exam Extremities Exam: Full ROM, Normal Capillary Refill, Normal Inspection. absent : Joint Swelling, Pedal Edema - Neurological Exam Neurological Exam: Alert, Awake, CN II-XII Intact, Normal Gait, Oriented x3 - Psychiatric Exam Psychiatric exam: Normal Affect, Normal Mood - Skin Skin Exam: Dry, Intact, Normal Color, Warm Assessment and Plan (1) A-fib Assessment & Plan: with VVR ( variable ventricular response ) increase metoprolol to 100mg bid cont lovenox for now Status: Acute (2) CHF (congestive heart failure), NYHA class IV Assessment & Plan: new onset on BB and ACei stress test this am further titration based on results of stress testing Status: Acute (3) Acute respiratory failure with hypoxia Status: Acute (4) Hypotension Assessment & Plan: BP stable infx resolved Status: Acute (5) Pneumonia Status: Acute (6) Pulmonary edema Assessment & Plan: lasix prn Status: Acute
[2017-03-29] MEDS: Enoxaparin 100 mg Syringe SC SCH (11:41)
[2017-03-29] MEDS: Potassium Chloride 20 mEq ER Tab PO SCH (11:42)
[2017-03-29 14:17] LABS: INR 1.2
--- NOTE | 2017-03-29 16:15 | CARD ---
APPROVED REPORT Protocol: JEWELS Test Type: LEXISCAN STRESS Test Indications: SOB Medications: PT GIVEN METOPROLOL IN RECOVERY Target HR: 160 bpm Resting ECG: atrial fibrillation Resting Heart Rate: 160 bpm Resting Blood Pressure: 118/80mmHg submaximum (85%): 136 bpm PROCEDURE Pharmacologic stress testing was performed using 0.4mg per 5ml of regadenoson given intravenously over 7-10 seconds. There was low-level exercise performed along with the infusion POST EXERCISE Reason for Termination: Protocol Completed Target HR: Yes Max HR: 179 bpm 111% of Maximum Predicted HR: 160 bpm Exercise duration: 02:13 min:sec, 1 Stage Exercise capacity: 4.6METs Max Blood Pressure: 118/80mmHg Blood Pressure response to exercise: normal resting BP - appropriate response Heart Rate response to exercise: accelerated Chest Pain: No, none Angina index: 0 Arrhythmia: Yes, ventricular premature beats-pairs ST Change: No, none Deviation: 0 mm EXAM: Myocardial Perfusion REST/STRESS Imaging Protocol The imaging protocol used to acquire images was Rest Tc-99m/stress Tc-99m 1 day Rest Spect myocardial perfusion imaging was performed in supine position 41 minutes following the injection of 13.2 mCi of Tc-99 Myoview. Gated Stress Spect was performed 39 minutes after intravenous 33 mCi Tc-99 Myoview injection. The images were gated to evaluate regional wall motion and calculate ventricular ejection fraction.Images were reconstructed using backfilter projection method in short horizontal and verticle long axis. Spect slices were generated. RESTING DATA MBT380.67jmMW1.10L/min ESV66.00mlMyocardial Gnhy067.00g Av. Heart Tmxh157.00bpm EF46.00% STRESS DATA RIH942.64nqMV9.50L/min ESV71.00mlMyocardial Umht331.00g EF41.00% Regional WT score at stress:2.00 Regional WM score at stress:0.00 Summed WT score at stress:32.00 Av. Heart Rewm021.00bpmSummed WM score at stress:28.00 Study quality was fair. Left Ventricular size was Normal at Rest and Stress. LV Perfusion 1 Perfusion Defect Location: anterior Perfusion Defect Size: Medium (3-4 segments) Perfusion Defect Severity: Severe Type of Perfusion Defect: Partially Reversible TCD/TID: 1.02 LV Perfusion 2 Perfusion Defect Location: basal anterioseptal Perfusion Defect Size: Medium (3-4 segments) Perfusion Defect Severity: Moderate Type of Perfusion Defect: Reversible TCD/TID: 1.02 LV Perf. Quant 17 Seg. SSS7.00 17 Seg. SRS3.00 17 Seg. SDS5.00 Stress Defect Extent (% LAD)19.40Rest Defect Extent (% LAD)16.90Rev. Defect Extent (% LAD)3.80 Stress Defect Extent (% LCX)6.30Rest Defect Extent (% LCX)2.50Rev. Defect Extent (% LCX)1.30 Stress Defect Extent (% RCA)21.10Rest Defect Extent (% RCA)5.60Rev. Defect Extent (% RCA)10.00 Stress Defect Extent (% AYO)16.30Rest Defect Extent (% AYO)8.00Rev. Defect Extent (% AYO)6.70 Other Information Quality:Good Overall Exercise Capacity: Poor IMPRESSION Abnormal Myocardial Perfusion exercise stress study Diseased Vessels: Left Anterior Descending Global LV Function: Mildy reduced Stress Test Summary: Nondiagnostic LV Perfusion Summary: Abnormal Metabolism/Perfusion Reversible/Irreversible: Medium sized severe intensity partially reversible anterior and anteroseptal wall defect Conclusion 1. - Medium sized severe intensity partially reversible defect involving the anterior and anteroseptal wall 2. - Mild LV systolic dysfunction
[2017-03-29] MEDS: Digoxin 125 mcg (0.125 mg) Tab PO SCH (17:36)
[2017-03-30] MEDS: Calamine-Zinc Oxide Lotion (120 ml) TOP SCH ×4 (00:33→19:00)
[2017-03-30 05:54] LABS: BASO % 0.4 % (0.0-2.0); EOS # 0.2 K/uL (0.0-0.7); EOS % 2.9 % (0.0-4.0); HEMATOCRIT 38.2 % (34.0-47.0); LYMPH # 2.7 K/uL (1.0-4.3); LYMPH % 32.3 % (20.0-40.0); MEAN CELL VOLUME 91.7 fL (81.0-99.0); MEAN CORPUSCULAR HEMOGLOBIN 30.8 pg (27.0-31.0); MEAN CORPUSCULAR HGB CONC 33.6 g/dL (33.0-37.0); MEAN PLATELET VOLUME 8.8 fL (7.2-11.7); MONO # 0.6 K/uL (0.0-0.8); MONO % 7.2 % (0.0-10.0); RED CELL DISTRIBUTION WIDTH 13.3 % (11.5-14.5); WHITE BLOOD COUNT 8.4 K/uL (4.8-10.8)
[2017-03-30 06:01] LABS: CHLORIDE 100 mmol/L (98-107); POTASSIUM 3.7 mmol/L (3.6-5.2); SODIUM 139 mmol/L (132-148)
[2017-03-30 06:03] LABS: AST/SGOT 49 U/L (14-36); BILIRUBIN,TOTAL 0.7 mg/dL (0.2-1.3); CARBON DIOXIDE 29 mmol/L (22-30); GFR AFRICAN-AMERICAN > 60
[2017-03-30 06:04] LABS: ALKALINE PHOSPHATASE 49 U/L (38-126); ALT/SGPT 87 U/L (9-52); BLOOD UREA NITROGEN 16 mg/dL (7-17); CALCIUM 8.8 mg/dl (8.6-10.4); GLUCOSE,RANDOM 104 mg/dL (65-105); PHOSPHOROUS 3.4 mg/dL (2.5-4.5); TOTAL PROTEIN 6.1 g/dL (6.3-8.3)
[2017-03-30 06:05] LABS: MAGNESIUM 1.9 mg/dL (1.6-2.3)
[2017-03-30] MEDS ORDERED: Midazolam 2 MG/2 ML VIAL ONE (07:35)
[2017-03-30] MEDS ORDERED: Iohexol 350mg/ml 100 ML ONE (07:35)
[2017-03-30] MEDS ORDERED: Lidocaine 2% Inj (20ml) ONE (07:35)
[2017-03-30] MEDS ORDERED: Nitroglycerin 50mg in D5W 50 MG/250 ML BOTTLE IV ONE (07:46)
--- NOTE | 2017-03-30 07:47 | CP.PCM.PN ---
Subjective - Date & Time of Evaluation Date of Evaluation: 03/30/17 Time of Evaluation: 07:47 - Subjective Subjective: stress test abnormal plan for cath today Objective - Vital Signs/Intake and Output Vital Signs (last 24 hours): Temp Pulse Resp BP Pulse Ox 98 F 68 20 102/63 98 03/30/17 06:10 03/30/17 06:10 03/30/17 06:10 03/30/17 06:10 03/30/17 06:10 Intake and Output: 03/30/17 03/30/17 06:59 18:59 Intake Total 480 Balance 480 - Medications Medications: Current Medications Calamine (Calamine Lotion) 1 ml TOP Q6 [facility] Last Admin: 03/30/17 00:33 Dose: 1 ml Digoxin (Lanoxin) 0.125 mg PO DAILY@1800 [facility] Last Admin: 03/29/17 17:36 Dose: 0.125 mg Diphenhydramine HCl (Benadryl) 25 mg PO Q12H PRN PRN Reason: pruritus and rash Last Admin: 03/29/17 17:43 Dose: 25 mg Enoxaparin Sodium (Lovenox) 90 mg SC Q12 [facility] Last Admin: 03/29/17 11:41 Dose: 90 mg Famotidine (Pepcid) 20 mg PO DAILY [facility] Last Admin: 03/29/17 11:42 Dose: 20 mg Furosemide (Lasix) 40 mg IVP Q24H [facility] Last Admin: 03/29/17 11:44 Dose: 40 mg Lisinopril (Zestril) 2.5 mg PO DAILY [facility] Last Admin: 03/29/17 11:43 Dose: 2.5 mg Metoprolol Tartrate (Lopressor) 100 mg PO BID [facility] Last Admin: 03/29/17 21:21 Dose: 100 mg Potassium Chloride (K-Dur 20 Meq Er Tab) 20 meq PO DAILY [facility] Last Admin: 03/29/17 11:42 Dose: 20 meq Rosuvastatin Calcium (Crestor) 5 mg PO HS [facility] Last Admin: 03/29/17 21:11 Dose: 5 mg - Labs Labs: 03/30/17 05:47 03/30/17 05:47 PT 13.4 SECONDS (9.7-12.2) H 03/29/17 14:05 INR 1.2 03/29/17 14:05 APTT 29 SECONDS (21-34) 03/19/17 06:57 - Constitutional Appears: Well - Head Exam Head Exam: ATRAUMATIC, NORMAL INSPECTION, NORMOCEPHALIC - Eye Exam Eye Exam: EOMI, Normal appearance, PERRL Pupil Exam: NORMAL ACCOMODATION, PERRL - ENT Exam ENT Exam: Mucous Membranes Moist, Normal Exam - Neck Exam Neck Exam: Full ROM, Normal Inspection. absent: Lymphadenopathy - Respiratory Exam Respiratory Exam: Rales, NORMAL BREATHING PATTERN - Cardiovascular Exam Cardiovascular Exam: Irregular Rhythm, +S1, +S2, Murmur - GI/Abdominal Exam GI & Abdominal Exam: Soft, Normal Bowel Sounds. absent: Tenderness - Extremities Exam Extremities Exam: Full ROM, Normal Capillary Refill, Normal Inspection. absent : Joint Swelling, Pedal Edema - Back Exam Back Exam: NORMAL INSPECTION - Neurological Exam Neurological Exam: Alert, Awake, CN II-XII Intact, Normal Gait, Oriented x3 - Psychiatric Exam Psychiatric exam: Normal Affect, Normal Mood - Skin Skin Exam: Dry, Intact, Normal Color, Warm Assessment and Plan (1) A-fib Assessment & Plan: rate controlled on BB and digoxin ac with heparin post cath and transition to PO coumadin Status: Acute (2) CHF (congestive heart failure), NYHA class IV Assessment & Plan: new onset plan for cath Bb, acei, aldactone Status: Acute (3) Acute respiratory failure with hypoxia Status: Acute (4) Hypotension Status: Acute (5) Pneumonia Status: Acute (6) Pulmonary edema Status: Acute
[2017-03-30] MEDS: Potassium Chloride 20 mEq ER Tab PO SCH (10:28)
--- NOTE | 2017-03-30 14:07 | CP.PCM.PN ---
<Pierre Polanco - Last Filed: 03/30/17 19:53> Subjective - Date & Time of Evaluation Date of Evaluation: 03/30/17 Time of Evaluation: 14:05 - Subjective Subjective: PGY1 Note for Dr. Osuna HPI: Patient seen and examined at bedside. Doing well with no complaints at this time. [place] [facility] [place]. When i went back she was back and sitting up in her check looking comfortable. She was told that she did not need any stents. We told her she would likely need to be on oral anticoagulation but needed to wait for the Ok from the web services developer. After i spoke with Dr. Kelley he said to go ahead and start the lovenox/coumadin bridge. This was explained to the patient. Patient agrees. Objective - Vital Signs/Intake and Output Vital Signs (last 24 hours): Temp Pulse Resp BP Pulse Ox 97.4 F L 74 20 106/65 98 03/30/17 10:30 03/30/17 10:30 03/30/17 10:30 03/30/17 10:30 03/30/17 10:30 Intake and Output: 03/30/17 03/30/17 06:59 18:59 Intake Total 480 Balance 480 - Medications Medications: Current Medications Calamine (Calamine Lotion) 1 ml TOP Q6 [facility] Last Admin: 03/30/17 13:06 Dose: 1 ml Digoxin (Lanoxin) 0.125 mg PO DAILY@1800 [facility] Last Admin: 03/29/17 17:36 Dose: 0.125 mg Diphenhydramine HCl (Benadryl) 25 mg PO Q12H PRN PRN Reason: pruritus and rash Last Admin: 03/29/17 17:43 Dose: 25 mg Enoxaparin Sodium (Lovenox) 90 mg SC Q12 [facility] Last Admin: 03/29/17 11:41 Dose: 90 mg Famotidine (Pepcid) 20 mg PO DAILY [facility] Last Admin: 03/30/17 10:29 Dose: 20 mg Furosemide (Lasix) 40 mg IVP Q24H [facility] Last Admin: 03/30/17 10:29 Dose: 40 mg Lisinopril (Zestril) 2.5 mg PO DAILY [facility] Last Admin: 03/30/17 10:31 Dose: 2.5 mg Metoprolol Tartrate (Lopressor) 100 mg PO BID [facility] Last Admin: 03/30/17 10:29 Dose: 100 mg Potassium Chloride (K-Dur 20 Meq Er Tab) 20 meq PO DAILY [facility] Last Admin: 03/30/17 10:28 Dose: 20 meq Rosuvastatin Calcium (Crestor) 5 mg PO HS [facility] Last Admin: 03/29/17 21:11 Dose: 5 mg - Labs Labs: 03/30/17 05:47 03/30/17 05:47 PT 13.4 SECONDS (9.7-12.2) H 03/29/17 14:05 INR 1.2 03/29/17 14:05 APTT 29 SECONDS (21-34) 03/19/17 06:57 - Constitutional Appears: Well, Non-toxic, No Acute Distress - Head Exam Head Exam: ATRAUMATIC, NORMAL INSPECTION, NORMOCEPHALIC - Eye Exam Eye Exam: EOMI Pupil Exam: NORMAL ACCOMODATION - ENT Exam ENT Exam: Mucous Membranes Moist - Respiratory Exam Respiratory Exam: Clear to Ausculation Bilateral, NORMAL BREATHING PATTERN - Cardiovascular Exam Cardiovascular Exam: Irregular Rhythm. absent: Bradycardia, Tachycardia, Gallop , JVD, Rubs, Murmur - GI/Abdominal Exam GI & Abdominal Exam: Soft, Normal Bowel Sounds. absent: Distended, Tenderness - Extremities Exam Extremities Exam: absent: Joint Swelling, Tenderness - Neurological Exam Neurological Exam: Alert, Awake, Oriented x3 - Psychiatric Exam Psychiatric exam: Normal Affect, Normal Mood - Skin Skin Exam: Dry, Intact, Normal Color, Warm Assessment and Plan - Assessment and Plan (Free Text) Assessment: Atrial fibrillation * Cards () * Restart therapeutic lovenox and begin bridge to Coumadin * Gave Coumadin 5mg * Will check INR in the AM * Lopressor 50 mg PO BID * Lovenox 90 mg SC Q12 * Digoxin 0.125 mg PO daily * 03/28 Dig Lvl = 0.6 CHF, NYHA class IV * Cards () * Stress test - reversible anterior and anteroseptal wall ischemia * Cardiac cath - no stent necessary * medical management * start Coumadin bridge as above * Lasix 40 mg IV daily * Metoprolol 75 mg PO BID * Lisinopril 2.5 mg PO daily * Crestor 2.5 mg PO QD * Echo = EF 31% Pneumonia * All cultures negative. Abx have been stopped. History of Hypertension * Metoprolol 50 mg PO BID * Lisinopril 2.5 mg PO daily * Lasix 40 mg IV daily Prophylactic measure * Pepcid 20 mg PO daily * Coumadin bridge as above <EnrriqueDannyn M - Last Filed: 03/31/17 13:15> Objective - Vital Signs/Intake and Output Vital Signs (last 24 hours): Temp Pulse Resp BP Pulse Ox 98.5 F 87 18 123/75 96 03/31/17 07:20 03/31/17 11:44 03/31/17 07:20 03/31/17 11:44 03/31/17 07:20 Intake and Output: 03/31/17 03/31/17 06:59 18:59 Intake Total 700 Balance 700 - Medications Medications: Current Medications Aspirin (Ecotrin) 81 mg PO DAILY [facility] Last Admin: 03/31/17 10:35 Dose: 81 mg Calamine (Calamine Lotion) 1 ml TOP Q6 [facility] Last Admin: 03/31/17 10:09 Dose: Not Given Digoxin (Lanoxin) 0.125 mg PO DAILY@1800 [facility] Last Admin: 03/30/17 18:52 Dose: 0.125 mg Diphenhydramine HCl (Benadryl) 25 mg PO Q12H PRN PRN Reason: pruritus and rash Last Admin: 03/29/17 17:43 Dose: 25 mg Enoxaparin Sodium (Lovenox) 90 mg SC Q12 [facility] Last Admin: 03/31/17 10:41 Dose: 90 mg Famotidine (Pepcid) 20 mg PO DAILY [facility] Last Admin: 03/31/17 10:35 Dose: 20 mg Furosemide (Lasix) 40 mg IVP Q24H [facility] Last Admin: 03/31/17 10:33 Dose: 40 mg Lisinopril (Zestril) 2.5 mg PO DAILY [facility] Last Admin: 03/31/17 10:35 Dose: 2.5 mg Metoprolol Tartrate (Lopressor) 100 mg PO BID [facility] Last Admin: 03/31/17 10:41 Dose: 100 mg Potassium Chloride (K-Dur 20 Meq Er Tab) 20 meq PO DAILY [facility] Last Admin: 03/31/17 10:34 Dose: 20 meq Rosuvastatin Calcium (Crestor) 5 mg PO HS [facility] Last Admin: 03/30/17 22:04 Dose: 5 mg - Labs Labs: 03/31/17 07:55 03/31/17 07:52 PT 12.8 SECONDS (9.7-12.2) H 03/31/17 07:52 INR 1.1 03/31/17 07:52 APTT 29 SECONDS (21-34) 03/19/17 06:57 Assessment and Plan (1) Acute respiratory failure with hypoxia Status: Acute (2) CHF (congestive heart failure), NYHA class IV Status: Acute (3) Hypotension Status: Acute (4) Pneumonia Status: Acute (5) Pulmonary edema Status: Acute (6) Prophylactic measure Status: Acute Attending/Attestation - Attestation I have personally seen and examined this patient.: Yes I have fully participated in the care of the patient.: Yes I have reviewed all pertinent clinical information, including history, physical exam and plan: Yes Notes (Text): 03/31/17 13:13 Patient was seen and examined at bedside with the resident Patient appears comfortable. Status was discussed to the edition today No PCI needed Patient started on Coumadin tonight and we'll bridge with Lovenox until INR is therapeutic I discussed the plan of care with the resident and agree with the assessment and plan documented by the resident
--- NOTE | 2017-03-30 18:19 | CARDCATH ---
INDICATIONS: The patient is a 62-year-old female with a history of hypertension, hyperlipidemia, who was admitted last week with acute shortness of breath, ran into respiratory distress and got intubated. During her ICU stay, she went into atrial fibrillation with rapid ventricular response and was noted to be in new-onset congestive heart failure. She was stabilized, extubated and subsequently transferred out of the ICU to the floor. Her heart rate was controlled with beta blockers, digoxin. Subsequently, she underwent Lexiscan Myoview stress test, which showed there was some ischemia in the anterior apical wall for which she was taken to the cardiac laboratory associate. PROCEDURES PERFORMED: 1. Left heart catheterization with selective left and right coronary angiogram via left radial approach. 2. Left ventriculogram, 6-English left radial arterial access. Manual pressure for hemostasis. TECHNIQUES OF PROCEDURE: After obtaining informed consent, the patient was brought to the cardiac laboratory associate in post-absorptive non-sedated state. The patient was prepped and draped in the usual sterile fashion. Lidocaine 2% was used for infiltration anesthesia. Using modified Seldinger technique, 6-English sheath was introduced into the left radial artery. Subsequently, over a J-wire, [place] catheter was advanced over J-wire into the LV. LV gram was obtained in the TAVERA view. Subsequently, the catheter was pulled back through the aortic valve and gradients were noted. Subsequently, selective angiograms of the right and left groin insertions were obtained and results were reviewed. ANGIOGRAPHIC FINDINGS: Left ventricular ejection fraction was 40%. Left ventricular end-diastolic pressure was 15 mmHg. CORONARY ANATOMY: Right coronary artery spasm noted at site of engagement and gives off the right PDA and right LV which are medium-sized vessels and no angiographically significant stenosis. Left main, large size vessel, bifurcates into left circumflex coronary artery and left anterior descending artery. Left circumflex, large size vessel, gives off 2 OM branches, angiographically free of any significant obstructive disease. Left anterior descending artery, large size vessel, gives off small diagonal branches, free of any angiographically significant obstructive disease. IMPRESSION: 1. Nonobstructive coronary artery disease. 2. Nonischemic, dilated cardiomyopathy. RECOMMENDATIONS: GDMT for CHF Keep the patient on aspirin, beta blockers, RAAS modulators anticoagulation for atrial fibrillation. Josh Kelley MD [facility] # [id number] BENJIE
[2017-03-30] MEDS: Digoxin 125 mcg (0.125 mg) Tab PO SCH (18:52)
[2017-03-30] MEDS: Enoxaparin 100 mg Syringe SC SCH (22:04)
[2017-03-31] MEDS: Calamine-Zinc Oxide Lotion (120 ml) TOP SCH ×4 (00:11→17:30)
[2017-03-31 08:10] LABS: BASO % 0.5 % (0.0-2.0); EOS # 0.1 K/uL (0.0-0.7); EOS % 1.8 % (0.0-4.0); HEMATOCRIT 39.1 % (34.0-47.0); LYMPH # 2.3 K/uL (1.0-4.3); LYMPH % 28.9 % (20.0-40.0); MEAN CELL VOLUME 91.4 fL (81.0-99.0); MEAN CORPUSCULAR HEMOGLOBIN 30.8 pg (27.0-31.0); MEAN CORPUSCULAR HGB CONC 33.7 g/dL (33.0-37.0); MEAN PLATELET VOLUME 9.5 fL (7.2-11.7); MONO # 0.5 K/uL (0.0-0.8); MONO % 6.8 % (0.0-10.0); RED CELL DISTRIBUTION WIDTH 13.2 % (11.5-14.5)
[2017-03-31 08:14] LABS: INR 1.1
[2017-03-31 08:29] LABS: CHLORIDE 103 mmol/L (98-107); POTASSIUM 3.6 mmol/L (3.6-5.2); SODIUM 142 mmol/L (132-148)
[2017-03-31 08:31] LABS: ALKALINE PHOSPHATASE 57 U/L (38-126); AST/SGOT 47 U/L (14-36); BILIRUBIN,TOTAL 0.7 mg/dL (0.2-1.3); CARBON DIOXIDE 28 mmol/L (22-30); GFR AFRICAN-AMERICAN > 60; TOTAL PROTEIN 6.5 g/dL (6.3-8.3)
[2017-03-31 08:32] LABS: ALT/SGPT 89 U/L (9-52); BLOOD UREA NITROGEN 12 mg/dL (7-17); CALCIUM 9.2 mg/dl (8.6-10.4); GLUCOSE,RANDOM 117 mg/dL (65-105); PHOSPHOROUS 3.4 mg/dL (2.5-4.5)
[2017-03-31] MEDS: Potassium Chloride 20 mEq ER Tab PO SCH (10:34)
[2017-03-31] MEDS: Enoxaparin 100 mg Syringe SC SCH ×2 (10:41→21:37)
[2017-03-31] MEDS: Digoxin 125 mcg (0.125 mg) Tab PO SCH (17:30)
[2017-03-31 17:31] VITALS: PULSE 76
--- NOTE | 2017-03-31 19:17 | CP.PCM.PN ---
Subjective - Date & Time of Evaluation Date of Evaluation: 03/31/17 Time of Evaluation: 20:45 - Subjective Subjective: episode of afib w/RVR this am given IV cardizem according to patient she got upset for not going home which made her heart race Objective - Vital Signs/Intake and Output Vital Signs (last 24 hours): Temp Pulse Resp BP Pulse Ox 98.6 F 69 20 122/77 99 03/31/17 15:14 03/31/17 16:22 03/31/17 15:14 03/31/17 15:14 03/31/17 15:14 Intake and Output: 03/31/17 04/01/17 18:59 06:59 Intake Total 600 Balance 600 - Medications Medications: Current Medications Aspirin (Ecotrin) 81 mg PO DAILY [facility] Last Admin: 03/31/17 10:35 Dose: 81 mg Calamine (Calamine Lotion) 1 ml TOP Q6 [facility] Last Admin: 03/31/17 17:30 Dose: Not Given Digoxin (Lanoxin) 0.125 mg PO DAILY@1800 [facility] Last Admin: 03/31/17 17:30 Dose: 0.125 mg Diphenhydramine HCl (Benadryl) 25 mg PO Q12H PRN PRN Reason: pruritus and rash Last Admin: 03/29/17 17:43 Dose: 25 mg Enoxaparin Sodium (Lovenox) 90 mg SC Q12 [facility] Last Admin: 03/31/17 10:41 Dose: 90 mg Famotidine (Pepcid) 20 mg PO DAILY [facility] Last Admin: 03/31/17 10:35 Dose: 20 mg Furosemide (Lasix) 40 mg IVP Q24H [facility] Last Admin: 03/31/17 10:33 Dose: 40 mg Lisinopril (Zestril) 2.5 mg PO DAILY [facility] Last Admin: 03/31/17 10:35 Dose: 2.5 mg Metoprolol Tartrate (Lopressor) 100 mg PO BID [facility] Last Admin: 03/31/17 17:29 Dose: 100 mg Potassium Chloride (K-Dur 20 Meq Er Tab) 20 meq PO DAILY [facility] Last Admin: 03/31/17 10:34 Dose: 20 meq Rosuvastatin Calcium (Crestor) 5 mg PO HS [facility] Last Admin: 03/30/17 22:04 Dose: 5 mg - Labs Labs: 03/31/17 07:55 03/31/17 07:52 PT 12.8 SECONDS (9.7-12.2) H 03/31/17 07:52 INR 1.1 03/31/17 07:52 APTT 29 SECONDS (21-34) 03/19/17 06:57 - Constitutional Appears: Well - Head Exam Head Exam: ATRAUMATIC, NORMAL INSPECTION, NORMOCEPHALIC - Eye Exam Eye Exam: EOMI, Normal appearance, PERRL Pupil Exam: NORMAL ACCOMODATION, PERRL - ENT Exam ENT Exam: Mucous Membranes Moist, Normal Exam - Neck Exam Neck Exam: Full ROM, Normal Inspection. absent: Lymphadenopathy - Respiratory Exam Respiratory Exam: Clear to Ausculation Bilateral, NORMAL BREATHING PATTERN - Cardiovascular Exam Cardiovascular Exam: Irregular Rhythm, +S1, +S2, Murmur - GI/Abdominal Exam GI & Abdominal Exam: Soft, Normal Bowel Sounds. absent: Tenderness - Extremities Exam Extremities Exam: Full ROM, Normal Capillary Refill, Normal Inspection. absent : Joint Swelling, Pedal Edema - Back Exam Back Exam: NORMAL INSPECTION - Neurological Exam Neurological Exam: Alert, Awake, CN II-XII Intact, Normal Gait, Oriented x3 - Psychiatric Exam Psychiatric exam: Normal Affect, Normal Mood - Skin Skin Exam: Dry, Intact, Normal Color, Warm Assessment and Plan (1) A-fib Assessment & Plan: with VVR on metoprolol 100mg po bid and digoxin add amiodarone 400mg po bid x 7 days then 200mg po daily cont lovenox/coumadin bridging Status: Acute (2) CHF (congestive heart failure), NYHA class IV Assessment & Plan: non-ischemic CMP etiology 2' to atrial fibrillation cont bb, acei add amiodarone 400mg po bid x 7 days then 200mg po daily Status: Acute (3) Acute respiratory failure with hypoxia Status: Acute (4) Hypotension Status: Acute (5) Pneumonia Status: Acute (6) Pulmonary edema Status: Acute
--- NOTE | 2017-03-31 20:50 | CP.PCM.PN ---
<AveryalexusPierre woods - Last Filed: 03/31/17 20:51> Subjective - Date & Time of Evaluation Date of Evaluation: 03/31/17 Time of Evaluation: 20:46 - Subjective Subjective: PGY1 Note for Dr. Osuna HPI: Patient seen and examined at bedside. Doing well. Wants to go home. Explained to the patient that we would need to keep her in the hospital until her coumadin bridge was finished. Becuase she does not have insurance other oral agent would be very expensive. At first she wanted to pay the money out of pocket for a drug like eliquis or xarelto but later her family did not think it was a good idea. She had an episode of Afib with rapid RVR this am but was controlled with IV cardizem. Asked Dr. Kelley to see the patient to see wether cardizem should be added to her regimen permanently. Will follow up. Patient agreed to stay another day so we could follow up her INR given that we administered another dose of coumadin. It would be much better for the patient if we stabilized her bridge in the hospital where we can monitor her Objective - Vital Signs/Intake and Output Vital Signs (last 24 hours): Temp Pulse Resp BP Pulse Ox 98.6 F 69 20 122/77 99 03/31/17 15:14 03/31/17 16:22 03/31/17 15:14 03/31/17 15:14 03/31/17 15:14 Intake and Output: 03/31/17 04/01/17 18:59 06:59 Intake Total 600 Balance 600 - Medications Medications: Current Medications Aspirin (Ecotrin) 81 mg PO DAILY [facility] Last Admin: 03/31/17 10:35 Dose: 81 mg Calamine (Calamine Lotion) 1 ml TOP Q6 [facility] Last Admin: 03/31/17 17:30 Dose: Not Given Digoxin (Lanoxin) 0.125 mg PO DAILY@1800 [facility] Last Admin: 03/31/17 17:30 Dose: 0.125 mg Diphenhydramine HCl (Benadryl) 25 mg PO Q12H PRN PRN Reason: pruritus and rash Last Admin: 03/29/17 17:43 Dose: 25 mg Enoxaparin Sodium (Lovenox) 90 mg SC Q12 [facility] Last Admin: 03/31/17 10:41 Dose: 90 mg Famotidine (Pepcid) 20 mg PO DAILY [facility] Last Admin: 03/31/17 10:35 Dose: 20 mg Furosemide (Lasix) 40 mg IVP Q24H [facility] Last Admin: 03/31/17 10:33 Dose: 40 mg Lisinopril (Zestril) 2.5 mg PO DAILY [facility] Last Admin: 03/31/17 10:35 Dose: 2.5 mg Metoprolol Tartrate (Lopressor) 100 mg PO BID [facility] Last Admin: 03/31/17 17:29 Dose: 100 mg Potassium Chloride (K-Dur 20 Meq Er Tab) 20 meq PO DAILY [facility] Last Admin: 03/31/17 10:34 Dose: 20 meq Rosuvastatin Calcium (Crestor) 5 mg PO HS [facility] Last Admin: 03/30/17 22:04 Dose: 5 mg - Labs Labs: 03/31/17 07:55 03/31/17 07:52 PT 12.8 SECONDS (9.7-12.2) H 03/31/17 07:52 INR 1.1 03/31/17 07:52 APTT 29 SECONDS (21-34) 03/19/17 06:57 - Constitutional Appears: Well, Non-toxic, No Acute Distress - Head Exam Head Exam: ATRAUMATIC, NORMAL INSPECTION, NORMOCEPHALIC - Eye Exam Eye Exam: EOMI - ENT Exam ENT Exam: Mucous Membranes Moist - Neck Exam Neck Exam: Full ROM, Normal Inspection - Respiratory Exam Respiratory Exam: Clear to Ausculation Bilateral, NORMAL BREATHING PATTERN - Cardiovascular Exam Cardiovascular Exam: Tachycardia, Irregular Rhythm Additional comments: afib with RVR - GI/Abdominal Exam GI & Abdominal Exam: Soft, Normal Bowel Sounds. absent: Distended, Tenderness - Neurological Exam Neurological Exam: Alert, Awake, Oriented x3 - Psychiatric Exam Psychiatric exam: Normal Affect, Normal Mood - Skin Skin Exam: Dry, Intact, Normal Color, Warm Assessment and Plan - Assessment and Plan (Free Text) Assessment: Atrial fibrillation * Cards (Warren) * Restart therapeutic lovenox and begin bridge to Coumadin * Gave Coumadin 7.5mg * Will check INR in the AM * Lopressor 50 mg PO BID * Lovenox 90 mg SC Q12 * Digoxin 0.125 mg PO daily * 03/28 Dig Lvl = 0.6 * Episode of Afib with RVR this morning controlled with Cardizem IV 20mg 1x * F/U Dr. Warren franco CHF, NYHA class IV * Cards (Warren) * Stress test - reversible anterior and anteroseptal wall ischemia * Cardiac cath - no stent necessary * medical management * start Coumadin bridge as above * Lasix 40 mg IV daily * Metoprolol 75 mg PO BID * Lisinopril 2.5 mg PO daily * Crestor 2.5 mg PO QD * Echo = EF 31% Pneumonia * All cultures negative. Abx have been stopped. History of Hypertension * Metoprolol 50 mg PO BID * Lisinopril 2.5 mg PO daily * Lasix 40 mg IV daily Prophylactic measure * Pepcid 20 mg PO daily * Coumadin bridge as above <Ace Osuna - Last Filed: 04/01/17 16:57> Objective - Vital Signs/Intake and Output Vital Signs (last 24 hours): Temp Pulse Resp BP Pulse Ox 97.6 F 76 18 106/66 98 04/01/17 07:00 04/01/17 07:00 04/01/17 07:00 04/01/17 09:32 04/01/17 07:00 Intake and Output: 04/01/17 04/01/17 06:59 18:59 Intake Total 150 Balance 150 - Labs Labs: 04/01/17 06:10 04/01/17 06:10 PT 16.9 SECONDS (9.7-12.2) H 04/01/17 06:10 INR 1.5 04/01/17 06:10 APTT 29 SECONDS (21-34) 03/19/17 06:57 Assessment and Plan (1) Acute respiratory failure with hypoxia Status: Acute (2) CHF (congestive heart failure), NYHA class IV Status: Acute (3) Hypotension Status: Acute (4) Pneumonia Status: Acute (5) Pulmonary edema Status: Acute (6) Prophylactic measure Status: Acute Attending/Attestation - Attestation I have personally seen and examined this patient.: Yes I have fully participated in the care of the patient.: Yes I have reviewed all pertinent clinical information, including history, physical exam and plan: Yes Notes (Text): 04/01/17 16:57 Patient was seen and examined at bedside with the resident Patient had an episode of for a rapid atrial fibrillation this morning. Cardizem was given and patient converted to normal sinus rhythm Patient has been started on amiodarone by cardiology We will continue anticoagulation with Lovenox bridging to Coumadin I discussed the plan of care with the resident agree with the assessment plan recommended by the resident
[2017-04-01] MEDS: Calamine-Zinc Oxide Lotion (120 ml) TOP SCH ×2 (00:21→05:26)
[2017-04-01 06:22] LABS: BASO % 0.3 % (0.0-2.0); EOS # 0.2 K/uL (0.0-0.7); EOS % 1.8 % (0.0-4.0); HEMATOCRIT 37.8 % (34.0-47.0); LYMPH # 3.6 K/uL (1.0-4.3); LYMPH % 38.8 % (20.0-40.0); MEAN CELL VOLUME 91.5 fL (81.0-99.0); MEAN CORPUSCULAR HEMOGLOBIN 30.8 pg (27.0-31.0); MEAN CORPUSCULAR HGB CONC 33.6 g/dL (33.0-37.0); MEAN PLATELET VOLUME 9.2 fL (7.2-11.7); MONO # 0.7 K/uL (0.0-0.8); MONO % 7.2 % (0.0-10.0); NRBC % 0.1 % (0.0-2.0); RED CELL DISTRIBUTION WIDTH 13.3 % (11.5-14.5); WHITE BLOOD COUNT 9.3 K/uL (4.8-10.8)
[2017-04-01 06:25] LABS: INR 1.5
[2017-04-01 06:38] LABS: CHLORIDE 102 mmol/L (98-107); POTASSIUM 3.7 mmol/L (3.6-5.2); SODIUM 142 mmol/L (132-148)
[2017-04-01 06:40] LABS: ALKALINE PHOSPHATASE 52 U/L (38-126); ALT/SGPT 74 U/L (9-52); AST/SGOT 33 U/L (14-36); BILIRUBIN,TOTAL 0.6 mg/dL (0.2-1.3); BLOOD UREA NITROGEN 13 mg/dL (7-17); CARBON DIOXIDE 28 mmol/L (22-30); GFR AFRICAN-AMERICAN > 60; TOTAL PROTEIN 6.1 g/dL (6.3-8.3)
[2017-04-01 06:41] LABS: CALCIUM 9.1 mg/dl (8.6-10.4); GLUCOSE,RANDOM 102 mg/dL (65-105)
--- NOTE | 2017-04-01 07:25 | CP.PCM.PN ---
Subjective - Date & Time of Evaluation Date of Evaluation: 04/01/17 Time of Evaluation: 07:25 Objective - Vital Signs/Intake and Output Vital Signs (last 24 hours): Temp Pulse Resp BP Pulse Ox 98.5 F 64 20 114/52 L 97 03/31/17 23:05 04/01/17 04:03 03/31/17 23:05 03/31/17 23:05 03/31/17 23:05 Intake and Output: 04/01/17 04/01/17 06:59 18:59 Intake Total 150 Balance 150 - Medications Medications: Current Medications Amiodarone HCl (Cordarone) 400 mg PO BID [facility] Aspirin (Ecotrin) 81 mg PO DAILY [facility] Last Admin: 03/31/17 10:35 Dose: 81 mg Calamine (Calamine Lotion) 1 ml TOP Q6 [facility] Last Admin: 04/01/17 05:26 Dose: Not Given Digoxin (Lanoxin) 0.125 mg PO DAILY@1800 [facility] Last Admin: 03/31/17 17:30 Dose: 0.125 mg Diphenhydramine HCl (Benadryl) 25 mg PO Q12H PRN PRN Reason: pruritus and rash Last Admin: 03/29/17 17:43 Dose: 25 mg Enoxaparin Sodium (Lovenox) 90 mg SC Q12 [facility] Last Admin: 03/31/17 21:37 Dose: 90 mg Famotidine (Pepcid) 20 mg PO DAILY [facility] Last Admin: 03/31/17 10:35 Dose: 20 mg Furosemide (Lasix) 40 mg IVP Q24H [facility] Last Admin: 03/31/17 10:33 Dose: 40 mg Lisinopril (Zestril) 2.5 mg PO DAILY [facility] Last Admin: 03/31/17 10:35 Dose: 2.5 mg Metoprolol Tartrate (Lopressor) 100 mg PO BID [facility] Last Admin: 03/31/17 17:29 Dose: 100 mg Potassium Chloride (K-Dur 20 Meq Er Tab) 20 meq PO DAILY [facility] Last Admin: 03/31/17 10:34 Dose: 20 meq Rosuvastatin Calcium (Crestor) 5 mg PO HS [facility] Last Admin: 03/31/17 21:36 Dose: 5 mg - Labs Labs: 04/01/17 06:10 04/01/17 06:10 PT 16.9 SECONDS (9.7-12.2) H 04/01/17 06:10 INR 1.5 04/01/17 06:10 APTT 29 SECONDS (21-34) 03/19/17 06:57 Assessment and Plan (1) A-fib Status: Acute (2) CHF (congestive heart failure), NYHA class IV Status: Acute (3) Acute respiratory failure with hypoxia Status: Acute (4) Hypotension Status: Acute (5) Pneumonia Status: Acute (6) Pulmonary edema Status: Acute
[2017-04-01 07:49] VITALS: PULSE 76; RESP 18; TEMP 97.6; O2SAT 98
[2017-04-01] MEDS: Enoxaparin 100 mg Syringe SC SCH (09:31)
[2017-04-01] MEDS: Potassium Chloride 20 mEq ER Tab PO SCH (09:32)
[2017-04-01 09:33] VITALS: BP 106/66
--- NOTE | 2017-04-01 11:19 | CP.PCM.DIS ---
<Pierre Polanco - Last Filed: 04/01/17 18:40> Provider - Provider Date of Admission: 03/19/17 08:40 Attending physician: Mihir Medina DO Primary care physician: Clinic Consults: Maria Luisa: Warren Time Spent in preparation of Discharge (in minutes): 45 Hospital Course - Lab Results Lab Results: Micro Results 03/25/17 16:00 Naris MRSA Culture - Final MRSA NOT DETECTED 03/19/17 12:50 Trachasp Gram Stain - Final 03/19/17 12:50 Trachasp Sputum Culture - Final NORMAL ORAL EMMANUEL 03/19/17 10:22 Naris MRSA Culture (Admit) - Final MRSA NOT DETECTED Most Recent Lab Values WBC 9.3 K/uL (4.8-10.8) 04/01/17 06:10 RBC 4.13 Mil/uL (3.80-5.20) 04/01/17 06:10 Hgb 12.7 g/dL (11.0-16.0) 04/01/17 06:10 Hct 37.8 % (34.0-47.0) 04/01/17 06:10 MCV 91.5 fL (81.0-99.0) 04/01/17 06:10 MCH 30.8 pg (27.0-31.0) 04/01/17 06:10 MCHC 33.6 g/dL (33.0-37.0) 04/01/17 06:10 RDW 13.3 % (11.5-14.5) 04/01/17 06:10 Plt Count 223 K/uL (130-400) 04/01/17 06:10 MPV 9.2 fL (7.2-11.7) 04/01/17 06:10 Neut % (Auto) 51.9 % (50.0-75.0) 04/01/17 06:10 Lymph % (Auto) 38.8 % (20.0-40.0) 04/01/17 06:10 Power % (Auto) 7.2 % (0.0-10.0) 04/01/17 06:10 Eos % (Auto) 1.8 % (0.0-4.0) 04/01/17 06:10 Baso % (Auto) 0.3 % (0.0-2.0) 04/01/17 06:10 Neut # 4.8 K/uL (1.8-7.0) 04/01/17 06:10 Lymph # 3.6 K/uL (1.0-4.3) 04/01/17 06:10 Power # 0.7 K/uL (0.0-0.8) 04/01/17 06:10 Eos # 0.2 K/uL (0.0-0.7) 04/01/17 06:10 Baso # 0.0 K/uL (0.0-0.2) 04/01/17 06:10 PT 16.9 SECONDS (9.7-12.2) H 04/01/17 06:10 INR 1.5 04/01/17 06:10 APTT 29 SECONDS (21-34) 03/19/17 06:57 Puncture Site R rad 03/24/17 05:10 pCO2 44 mm/Hg (35-45) 03/24/17 05:10 pO2 86 mm/Hg (80-100) 03/24/17 05:10 HCO3 31.9 mmol/L (21-28) H 03/24/17 05:10 ABG pH 7.49 (7.35-7.45) H 03/24/17 05:10 ABG Total CO2 34.9 mmol/L (22-28) H 03/24/17 05:10 ABG O2 Saturation 97.4 % (95-98) 03/24/17 05:10 ABG Base Excess 9.0 mmol/L (-2.0-3.0) H 03/24/17 05:10 ABG Hemoglobin 13.2 g/dL (11.7-17.4) 03/24/17 05:10 ABG Carboxyhemoglobin 1.0 % (0.5-1.5) 03/24/17 05:10 POC ABG HHb (Measured) 2.6 % (0.0-5.0) 03/24/17 05:10 ABG Methemoglobin 0.5 % (0.0-3.0) 03/24/17 05:10 Santiago Test Pos 03/24/17 05:10 ABG Potassium 2.9 mmol/L (3.6-5.2) L 03/19/17 08:50 A-a O2 Difference 219.0 mm/Hg 03/23/17 05:42 Respiratory Index 2.5 03/23/17 05:42 Hgb O2 Saturation 95.9 % (95.0-98.0) 03/24/17 05:10 Sodium 141.0 mmol/l (132-148) 03/19/17 08:50 Chloride 106.0 mmol/L (98-107) 03/19/17 08:50 Glucose 240 mg/dl (65-105) H 03/19/17 08:50 Lactate 1.5 mmol/L (0.7-2.1) 03/19/17 08:50 Liter Flow 3.0 03/24/17 05:10 Vent Mode Prvc 03/23/17 05:42 Mechanical Rate 12 03/23/17 05:42 FiO2 50.0 % 03/23/17 05:42 Tidal Volume 500 03/23/17 05:42 PEEP 5 03/23/17 05:42 Pressure Support 10 03/22/17 11:14 Crit Value Called To Dr curran 03/19/17 08:30 Crit Value Called By Raúl office electrician 03/19/17 08:30 Crit Value Read Back Y 03/19/17 08:30 Blood Gas Notified Time 840 03/19/17 08:30 Sodium 142 mmol/L (132-148) 04/01/17 06:10 Potassium 3.7 mmol/L (3.6-5.2) 04/01/17 06:10 Chloride 102 mmol/L (98-107) 04/01/17 06:10 Carbon Dioxide 28 mmol/L (22-30) 04/01/17 06:10 Anion Gap 15 (10-20) 04/01/17 06:10 BUN 13 mg/dL (7-17) 04/01/17 06:10 Creatinine 0.6 MG/DL (0.7-1.2) L 04/01/17 06:10 Est GFR ( Amer) > 60 04/01/17 06:10 Est GFR (Non-Af Amer) > 60 04/01/17 06:10 Random Glucose 102 mg/dL (65-105) 04/01/17 06:10 Calcium 9.1 mg/dl (8.6-10.4) 04/01/17 06:10 Phosphorus 4.0 mg/dL (2.5-4.5) 04/01/17 06:10 Magnesium 2.0 mg/dL (1.6-2.3) 04/01/17 06:10 Total Bilirubin 0.6 mg/dL (0.2-1.3) 04/01/17 06:10 AST 33 U/L (14-36) 04/01/17 06:10 ALT 74 U/L (9-52) H 04/01/17 06:10 Alkaline Phosphatase 52 U/L (38-126) 04/01/17 06:10 Troponin I < 0.0120 ng/mL (0.00-0.120) 03/19/17 06:57 NT-Pro-B Natriuret Pep 2450 pg/mL (0-900) H 03/19/17 06:57 Total Protein 6.1 g/dL (6.3-8.3) L 04/01/17 06:10 Albumin 3.1 g/dL (3.5-5.0) L 04/01/17 06:10 Globulin 3.0 gm/dL (2.2-3.9) 04/01/17 06:10 Albumin/Globulin Ratio 1.0 (1.0-2.1) 04/01/17 06:10 Procalcitonin 0.24 NG/ML (0.19-0.49) 03/20/17 12:45 TSH 3rd Generation 2.68 mIU/L (0.46-4.68) 03/19/17 06:57 Arterial Blood Potassium 2.9 mmol/L (3.6-5.2) L 03/19/17 08:50 Urine Color Dark brown (YELLOW) 03/21/17 12:11 Urine Clarity Hazy (Clear) 03/21/17 12:11 Urine pH 6.0 (5.0-8.0) 03/21/17 12:11 Ur Specific L[place]kin 1.025 (1.003-1.030) 03/21/17 12:11 Urine Protein 2+ mg/dL (NEGATIVE) H 03/21/17 12:11 Urine Glucose (UA) Normal mg/dL (Normal) 03/21/17 12:11 Urine Ketones 1+ mg/dL (NEGATIVE) H 03/21/17 12:11 Urine Blood 2+ (NEGATIVE) H 03/21/17 12:11 Urine Nitrate Negative (NEGATIVE) 03/21/17 12:11 Urine Bilirubin Negative (NEGATIVE) 03/21/17 12:11 Urine Urobilinogen Normal mg/dL (0.2-1.0) 03/21/17 12:11 Ur Leukocyte Esterase Trace Qian/uL (Negative) 03/21/17 12:11 Urine WBC (Auto) 8 /hpf (0-5) H 03/21/17 12:11 Urine RBC (Auto) 6892 /hpf (0-3) H 03/21/17 12:11 Ur Squamous Epith Cells < 1 /hpf (0-5) 03/19/17 08:20 Amorphous Sediment Rare /ul (<OCC) H 03/19/17 08:20 Urine Bacteria Rare (<OCC) 03/19/17 08:20 Hyaline Casts 0-2 /lpf (0-2) 03/19/17 08:20 Vancomycin Trough < 5.0 ug/mL (5.0-10.0) L 03/23/17 08:01 Digoxin 0.6 ng/mL (0.8-2.0) L 03/29/17 14:05 - Hospital Course Hospital Course: On Admission: 61 year old female patient with medical history of hypertension, presents to the ED via EMS for hypotension and weakness. Patient's history is obtained by daughter, Aliza. The patient called daughter, who works at [employer], around 5:30am and reported feeling like her blood pressure was low and she couldn't get out of bed. EMS took patient to the ED, where she became short of breath. Patient told EMS that she has not been taking her blood pressure medication for months, but as per her (Michael), patient takes her medication everyday. In the ED, patient's O2 saturation was low (79-90s) and patient was intubated. Patient was admitted to the ICU for respiratory distress and hypoxia. Review of systems not obtained due to sedation and intubation. Patient was admitted to the ICU and was intubated. Her chest exray showed a worsening pneumonia in which she was started on IV antibiotics. Cardiology was consulted to evaluate for new onset afib and CHF. Dr. Kelley ssid that he would work up the patient further after she was extubated. Patient was started on IV lasix and the weaning progress began. The patient was placed on CPAP in order to further wean her form the vent. Pateint was started on metoprolol 25 bid and cardiology said she would likely need a cardiac cath once she was extubated. Patient was extubated on 03/23. there was another episode of rapid afib with RVR and the patient was started on Digoxin. Cards increased the dose of metoprolol to 75 BID for further rate control of her Afib. She was also started on a ACEI. Patient was trasnfered to the floor and went for a stress test that showed reversible ischmia in the anterior and anterospetal you. Patient was taken for a cardiac cath that did not require any stents. She had one more episode of Afib with RVR that was controlled with Cardizem. Dr. Kelley saw the patient and placed her on Amiodarone for further control of her afib. Patient was started on a lovenox/coumadin bridge but was insisting on going home before the bridge was complete. She needs to follow up in the clinic tomorrow and on wednesday for follow up of her INR. She was given Lovenox and Coumadin 5mg to take home. - Date & Time of H&P Date of H&P: 03/19/17 Time of H&P: 11:58 Discharge Exam - Head Exam Head Exam: ATRAUMATIC, NORMAL INSPECTION, NORMOCEPHALIC - Eye Exam Eye Exam: EOMI - ENT Exam ENT Exam: Mucous Membranes Moist - Respiratory Exam Respiratory Exam: NORMAL BREATHING PATTERN, UNREMARKABLE - Cardiovascular Exam Cardiovascular Exam: Irregular Rhythm. absent: Bradycardia, Tachycardia - GI/Abdominal Exam GI & Abdominal Exam: Soft. absent: Distended, Tenderness - Neurological Exam Neurological exam: Alert, Oriented x3 - Psychiatric Exam Psychiatric exam: Normal Affect, Normal Mood - Skin Skin Exam: Dry, Intact, Normal Color, Warm Discharge Plan - Discharge Medications Prescriptions: Amiodarone [Cordarone] 400 mg PO BID #14 tab Amiodarone [Cordarone] 200 mg PO DAILY #30 tab Aspirin [Ecotrin] 81 mg PO DAILY #30 Digoxin [Lanoxin] 0.125 mg PO DAILY@1800 #30 tab Enoxaparin [Lovenox] 90 mg SC Q12 #5 syr Lisinopril [Zestril] 2.5 mg PO DAILY #30 tab Metoprolol Tartrate [Lopressor] 100 mg PO BID #60 tab Rosuvastatin Calcium [Crestor] 5 mg PO HS #30 tab Warfarin [Coumadin] 5 mg PO 1800 #30 tab - Follow Up Plan Condition: STABLE Disposition: HOME/ ROUTINE Instructions: Metoprolol (By mouth), Digoxin (By mouth), Lisinopril (By mouth) , Warfarin (By mouth), Aspirin (By mouth), Amiodarone (By mouth), Enoxaparin ( By injection), Rosuvastatin (By mouth), Heart Failure (DC), Heart Failure (GEN) , Atrial Fibrillation (DC), Pacemaker (DC), Pacemaker (GEN), Pulmonary Edema (DC ), Pulmonary Edema (GEN), Heart Healthy Diet (DC), Ascites (DC), Ascites (GEN), Hypertension (DC), Pneumonia (DC) Additional Instructions: Patient is stable and clear for discharge from a cardiac standpoint. Please follow up with Dr. Kelley in his office in one week. Please call to make an appointment. I have attached office information. From a medical standpoint you are stable and clear for discharge. Please follow up with your primary care provider in one weeks time. Please call to make an appointment. Please continue 400mg of Amiodarone PO 2x per day for 7 days. After completing this course please start Amiodarone 200mg 1x per day. Further prescription instruction will be provided at discharge. Please take Coumadin tonight. Please take Lovenox injection today if you haven't already. Please come to the clinic tomorrow to follow up your INR in order to complete your Coumadin bridge. It is critically important that you follow up in our clinic tomorrow for this. If symptoms return please come back to the ER Referrals: Josh Kelley MD [Staff Provider] - [facility] at [facility] [Outside] <EnrriqueAce M - Last Filed: 04/02/17 08:18> Provider - Provider Date of Admission: 03/19/17 08:40 Attending physician: Mihir Medina DO Diagnosis - Discharge Diagnosis (1) Acute respiratory failure with hypoxia Status: Acute (2) CHF (congestive heart failure), NYHA class IV Status: Acute (3) Hypotension Status: Acute (4) Pneumonia Status: Acute (5) Pulmonary edema Status: Acute (6) Prophylactic measure Status: Acute Hospital Course - Lab Results Lab Results: Micro Results 03/25/17 16:00 Naris MRSA Culture - Final MRSA NOT DETECTED 03/19/17 12:50 Trachasp Gram Stain - Final 03/19/17 12:50 Trachasp Sputum Culture - Final NORMAL ORAL EMMANUEL 03/19/17 10:22 Naris MRSA Culture (Admit) - Final MRSA NOT DETECTED Most Recent Lab Values WBC 9.3 K/uL (4.8-10.8) 04/01/17 06:10 RBC 4.13 Mil/uL (3.80-5.20) 04/01/17 06:10 Hgb 12.7 g/dL (11.0-16.0) 04/01/17 06:10 Hct 37.8 % (34.0-47.0) 04/01/17 06:10 MCV 91.5 fL (81.0-99.0) 04/01/17 06:10 MCH 30.8 pg (27.0-31.0) 04/01/17 06:10 MCHC 33.6 g/dL (33.0-37.0) 04/01/17 06:10 RDW 13.3 % (11.5-14.5) 04/01/17 06:10 Plt Count 223 K/uL (130-400) 04/01/17 06:10 MPV 9.2 fL (7.2-11.7) 04/01/17 06:10 Neut % (Auto) 51.9 % (50.0-75.0) 04/01/17 06:10 Lymph % (Auto) 38.8 % (20.0-40.0) 04/01/17 06:10 Power % (Auto) 7.2 % (0.0-10.0) 04/01/17 06:10 Eos % (Auto) 1.8 % (0.0-4.0) 04/01/17 06:10 Baso % (Auto) 0.3 % (0.0-2.0) 04/01/17 06:10 Neut # 4.8 K/uL (1.8-7.0) 04/01/17 06:10 Lymph # 3.6 K/uL (1.0-4.3) 04/01/17 06:10 Power # 0.7 K/uL (0.0-0.8) 04/01/17 06:10 Eos # 0.2 K/uL (0.0-0.7) 04/01/17 06:10 Baso # 0.0 K/uL (0.0-0.2) 04/01/17 06:10 PT 16.9 SECONDS (9.7-12.2) H 04/01/17 06:10 INR 1.5 04/01/17 06:10 APTT 29 SECONDS (21-34) 03/19/17 06:57 Puncture Site R rad 03/24/17 05:10 pCO2 44 mm/Hg (35-45) 03/24/17 05:10 pO2 86 mm/Hg (80-100) 03/24/17 05:10 HCO3 31.9 mmol/L (21-28) H 03/24/17 05:10 ABG pH 7.49 (7.35-7.45) H 03/24/17 05:10 ABG Total CO2 34.9 mmol/L (22-28) H 03/24/17 05:10 ABG O2 Saturation 97.4 % (95-98) 03/24/17 05:10 ABG Base Excess 9.0 mmol/L (-2.0-3.0) H 03/24/17 05:10 ABG Hemoglobin 13.2 g/dL (11.7-17.4) 03/24/17 05:10 ABG Carboxyhemoglobin 1.0 % (0.5-1.5) 03/24/17 05:10 POC ABG HHb (Measured) 2.6 % (0.0-5.0) 03/24/17 05:10 ABG Methemoglobin 0.5 % (0.0-3.0) 03/24/17 05:10 Santiago Test Pos 03/24/17 05:10 ABG Potassium 2.9 mmol/L (3.6-5.2) L 03/19/17 08:50 A-a O2 Difference 219.0 mm/Hg 03/23/17 05:42 Respiratory Index 2.5 03/23/17 05:42 Hgb O2 Saturation 95.9 % (95.0-98.0) 03/24/17 05:10 Sodium 141.0 mmol/l (132-148) 03/19/17 08:50 Chloride 106.0 mmol/L (98-107) 03/19/17 08:50 Glucose 240 mg/dl (65-105) H 03/19/17 08:50 Lactate 1.5 mmol/L (0.7-2.1) 03/19/17 08:50 Liter Flow 3.0 03/24/17 05:10 Vent Mode Prvc 03/23/17 05:42 Mechanical Rate 12 03/23/17 05:42 FiO2 50.0 % 03/23/17 05:42 Tidal Volume 500 03/23/17 05:42 PEEP 5 03/23/17 05:42 Pressure Support 10 03/22/17 11:14 Crit Value Called To Dr curran 03/19/17 08:30 Crit Value Called By Raúl quach 03/19/17 08:30 Crit Value Read Back Y 03/19/17 08:30 Blood Gas Notified Time 840 03/19/17 08:30 Sodium 142 mmol/L (132-148) 04/01/17 06:10 Potassium 3.7 mmol/L (3.6-5.2) 04/01/17 06:10 Chloride 102 mmol/L (98-107) 04/01/17 06:10 Carbon Dioxide 28 mmol/L (22-30) 04/01/17 06:10 Anion Gap 15 (10-20) 04/01/17 06:10 BUN 13 mg/dL (7-17) 04/01/17 06:10 Creatinine 0.6 MG/DL (0.7-1.2) L 04/01/17 06:10 Est GFR ( Amer) > 60 04/01/17 06:10 Est GFR (Non-Af Amer) > 60 04/01/17 06:10 Random Glucose 102 mg/dL (65-105) 04/01/17 06:10 Calcium 9.1 mg/dl (8.6-10.4) 04/01/17 06:10 Phosphorus 4.0 mg/dL (2.5-4.5) 04/01/17 06:10 Magnesium 2.0 mg/dL (1.6-2.3) 04/01/17 06:10 Total Bilirubin 0.6 mg/dL (0.2-1.3) 04/01/17 06:10 AST 33 U/L (14-36) 04/01/17 06:10 ALT 74 U/L (9-52) H 04/01/17 06:10 Alkaline Phosphatase 52 U/L (38-126) 04/01/17 06:10 Troponin I < 0.0120 ng/mL (0.00-0.120) 03/19/17 06:57 NT-Pro-B Natriuret Pep 2450 pg/mL (0-900) H 03/19/17 06:57 Total Protein 6.1 g/dL (6.3-8.3) L 04/01/17 06:10 Albumin 3.1 g/dL (3.5-5.0) L 04/01/17 06:10 Globulin 3.0 gm/dL (2.2-3.9) 04/01/17 06:10 Albumin/Globulin Ratio 1.0 (1.0-2.1) 04/01/17 06:10 Procalcitonin 0.24 NG/ML (0.19-0.49) 03/20/17 12:45 TSH 3rd Generation 2.68 mIU/L (0.46-4.68) 03/19/17 06:57 Arterial Blood Potassium 2.9 mmol/L (3.6-5.2) L 03/19/17 08:50 Urine Color Dark brown (YELLOW) 03/21/17 12:11 Urine Clarity Hazy (Clear) 03/21/17 12:11 Urine pH 6.0 (5.0-8.0) 03/21/17 12:11 Ur Specific L[place]kin 1.025 (1.003-1.030) 03/21/17 12:11 Urine Protein 2+ mg/dL (NEGATIVE) H 03/21/17 12:11 Urine Glucose (UA) Normal mg/dL (Normal) 03/21/17 12:11 Urine Ketones 1+ mg/dL (NEGATIVE) H 03/21/17 12:11 Urine Blood 2+ (NEGATIVE) H 03/21/17 12:11 Urine Nitrate Negative (NEGATIVE) 03/21/17 12:11 Urine Bilirubin Negative (NEGATIVE) 03/21/17 12:11 Urine Urobilinogen Normal mg/dL (0.2-1.0) 08/20/17 12:11 Ur Leukocyte Esterase Trace Qian/uL (Negative) 03/21/17 12:11 Urine WBC (Auto) 8 /hpf (0-5) H 03/21/17 12:11 Urine RBC (Auto) 6892 /hpf (0-3) H 03/21/17 12:11 Ur Squamous Epith Cells < 1 /hpf (0-5) 03/19/17 08:20 Amorphous Sediment Rare /ul (<OCC) H 03/19/17 08:20 Urine Bacteria Rare (<OCC) 03/19/17 08:20 Hyaline Casts 0-2 /lpf (0-2) 03/19/17 08:20 Vancomycin Trough < 5.0 ug/mL (5.0-10.0) L 03/23/17 08:01 Digoxin 0.6 ng/mL (0.8-2.0) L 03/29/17 14:05 Attending/Attestation - Attestation I have personally seen and examined this patient.: Yes I have fully participated in the care of the patient.: Yes I have reviewed all pertinent clinical information, including history, physical exam and plan: Yes Notes (Text): 04/02/17 08:16 Patient was seen and examined at bedside with the resident. Patient does not want to stay in the hospital anymore for bridging to Coumadin. Patient stated that she will be able to administer Lovenox and the she has her daughter who was a assistant in nursing and she will be able to help her with that medication at home Patient was counseled extensively on the administration of for Lovenox and bridging to Coumadin and the arrangements were made for her to check her INR in the morning at the clinic. Patient's daughter was also counseled extensively on the medication upon discharge. There were also explained how to take amiodarone. I discussed the plan of care with the resident and agree with the discharge note by the resident.
--- NOTE | 2017-04-01 17:37 | PCM.HF ---
Heart Failure Core Measure - Heart Failure Ejection Fraction: 40 % or Greater YANNA Inhibitor Prescribed: Yes Beta-Maylin Prescribed: Metoprolol Succinate Angiotensin II Receptor Maylin Prescribed: No Contraindication/Reason for not providing: yanna AnticoagulationTherapy for Atrial Fibrillation/Atrialflutter: Yes Aldosterone Antagonist Prescribed: No Contraindication/Reason for not providing: EF >40 Hydralazine Nitrate Prescribed: No Contraindication/Reason for not providing: EF >40 Implantable Cardioverter Defibrillator Therapy: No Contraindication/Reason for not providing: EF >40 Cardiac Resynchronization Therapy Prescribed: No Contraindication/Reason for not providing: EF >40 - Follow up Will be discharged to: Home Follow Up Date (must be within 7 days from discharge): 04/13/17 Follow Up Time: 09:00
== END 2017-04-01 13:10 | disposition home or self-care (01) | DRG 208 ==
LOC: C.ER 06:26 → C.9E 08:40 → C.9I 09:30 → C.5T 03-25 14:28 → C.6T 03-27 20:20
PROVIDERS: ADMIT Internal Medicine; ATTEND Hospitalist
PROC: 5A1945Z Respiratory Ventilation, 24-96 Consecutive Hours (ICD-10-PCS; principal; 2017-03-19)
PROC: 0BH17EZ Insertion of Endotracheal Airway into Trachea, Via Natural or Artificial Opening (ICD-10-PCS; 2017-03-19)
PROC: 4A023N7 Measurement of Cardiac Sampling and Pressure, Left Heart, Percutaneous Approach (ICD-10-PCS; 2017-03-30)
PROC: B2151ZZ Fluoroscopy of Left Heart using Low Osmolar Contrast (ICD-10-PCS; 2017-03-30)
PROC: B2111ZZ Fluoroscopy of Multiple Coronary Arteries using Low Osmolar Contrast (ICD-10-PCS; 2017-03-30)
PROC: B2161ZZ Fluoroscopy of Right and Left Heart using Low Osmolar Contrast (ICD-10-PCS; 2017-03-30)
DX: J96.01 Acute respiratory failure with hypoxia (principal); J18.9 Pneumonia, unspecified organism; I11.0 Hypertensive heart disease with heart failure; I42.0 Dilated cardiomyopathy; I95.9 Hypotension, unspecified; I50.9 Heart failure, unspecified; E11.9 Type 2 diabetes mellitus without complications; E78.5 Hyperlipidemia, unspecified; E87.6 Hypokalemia; I25.111 Atherosclerotic heart disease of native coronary artery with angina pectoris with documented spasm; I48.91 Unspecified atrial fibrillation; Z79.01 Long term (current) use of anticoagulants; Z79.899 Other long term (current) drug therapy; Z82.49 Family history of ischemic heart disease and other diseases of the circulatory system; Z83.3 Family history of diabetes mellitus